=== PATIENT | male | born 1990 | race Caucasian/White ===

== ENCOUNTER 2020-07-18 17:27 | Inpatient (IN) | payer SELFPAY ==
[2020-07-18] VITALS (10 sets, daily range): BP systolic 97–136; BP diastolic 50–89; PULSE 81–100; RESP 14–20; TEMP 36.6; O2SAT 92–99
[2020-07-18] MEDS: LORazepam 2 mg/mL INJ 1 mL IM ×2 (17:27→21:00)
[2020-07-18] MEDS: haloperidol inj 5 mg/mL INJ 1 mL IM (17:27)
--- NOTE | 2020-07-18 18:00 | ED_ITS ---
HPI - Psych General: Chief Complaint: Psychiatric Symptoms Stated Complaint: AMS/PSYCH EVAL Time Seen by Provider: 07/18/20 17:30 Source: patient and police Mode of arrival: other (police) Limitations: physical limitation History of Present Illness: HPI Narrative: 29-year-old male that police were called to a park as he was unconscious at the park. When they arrived he was sleeping unconscious and he try to arouse him. Patient states he had taken Xanax and has been drinking heavily. Patient is obviously intoxicated at this time. Police said that he was quite combative on the way here. Patient was combative in the room as well and will not follow any commands. History is limited due to his intoxication. He has never said that he is suicidal or homicidal. Associated symptoms: Deny depression Review of Systems Const: Denies: fever(s), chills, body aches or change in appetite Eyes: Denies: blurry vision or eye discomfort ENMT: Denies: throat pain or dental pain Card: Denies: chest pain Resp: Denies: dyspnea GI: Denies: abdominal pain, nausea, vomiting or diarrhea : Denies: dysuria Musc: Denies: neck pain or back pain Skin/Breast: Denies: rash Neuro: Denies: headache(s) Psych: Denies: depression Harpreet/Lymph: Denies: easy bruising All/Imm: Denies: urticaria Physical Exam Const: COMMON NORMALS: patient oriented x3 GENERAL APPEARANCE: combative OTHER: intoxicated HENMT: COMMON NORMALS: normocephalic and atraumatic HEAD & SCALP: normocephalic and atraumatic Eye: COMMON NORMALS: Equal, round and reactive pupils present and EOMs intact bilaterally PUPIL: Yes Equal, round and reactive pupils present Neck/C-Spine: COMMON NORMALS: full ROM and supple Chest: COMMONS NORMALS: normal inspection of the chest and normal palpation of entire chest wall Resp: COMMON NORMALS: normal respiratory effort, No retractions, No use of accessory muscles and clear to auscultation bilaterally AUSCULTATION: clear to auscultation bilaterally Cardio: COMMON NORMALS: regular rate, regular rhythm and No murmurs present (Cardio) RATE: regular rate RHYTHM: regular rhythm GI: COMMON NORMALS: Normal to inspection, nondistended, normoactive bowel sounds present, Soft to palpation, non-tender and no masses PALPATION: Yes Soft to palpation Extremity: COMMON NORMALS: normal to inspection and full ROM Neuro: COMMON NORMALS: patient oriented x3, moves all extremities and no focal motor deficits Psych: ATTITUDE: Yes agitated ACTIVITY/MOTOR BEHAVIOR: Yes restless OTHER: intoxicated Skin: COMMON NORMALS: no rashes or lesions noted and no wounds GENERAL SKIN EXAM: no rashes or lesions noted MDM - Psych MDM Narrative: Medical decision making narrative: Presents here with acute alcohol intoxication along with psychosis. Patient here is been combative and I did have to sedate him originally. After patient woke he was combative again I was unable to get him to calm down or to follow any commands. Patient is domingo tated and is a harm to himself and others and I did have to sedate him again I spoke to Dr. Salinas and will admit to the psychiatric unit. Lab Data: Labs: Lab Results 07/18/20 07/18/20 07/18/20 Range/Units 18:34 18:34 Unknown WBC 11.1 H (4.0-10.0) 10^3/ uL RBC 5.04 (4.1-5.3) 10^6/u L Hgb 14.6 (11.7-16.6) g/dL Hct 45.0 (42.0-52.0) % MCV 89.3 (80-94) fL MCH 29.0 (28.0-34.0) pg MCHC 32.4 (30.0-36.0) g/dL RDW 14.4 (12.1-15.1) % Plt Count 240 (130-400) 10^3/c mm MPV 11.4 H (7.4-10.4) fL Neut % (Auto) 47.0 % Lymph % (Auto) 45.0 % Martin % (Auto) 6.4 % Eos % (Auto) 0.6 % Baso % (Auto) 0.5 % Neut # (Auto) 5.19 (1.8-7.7) 10^3/u L Lymph # (Auto) 5.0 H (0.8-4.8) 10^3/u L Martin # (Auto) 0.7 (0.2-0.9) 10^3/u L Eos # (Auto) 0.1 (0.0-0.8) 10^3/u L Baso # (Auto) 0.1 (0.0-0.1) 10^3/u L Nucleated RBC % (a uto) 0 % Nucleated RBCs # 0.0 /100WBC Sodium 141 (136-145) mmol/L Potassium 3.9 (3.5-5.1) mmol/L Chloride 107 (98-107) mmol/L Carbon Dioxide 24 (22-29) mmol/L Anion Gap 13.9 (5-19) BUN 9 (6-20) mg/dL Creatinine 0.6 L (0.7-1.2) mg/dL GFR Calculation 160.4 H (90-130) mL/min Glucose 95 (65-115) mg/dL Calculated Osmolal ity 288 (285-295) mOsm/k g Calcium 9.0 (8.5-10.5) mg/dL Total Bilirubin 0.4 (0.15-1.2) mg/dL AST 66 H (0-40) U/L ALT 60 H (0-41) U/L Alkaline Phosphata se 64 (40-130) IU/L Total Protein 7.0 (6.6-8.7) g/dL Albumin 4.0 (3.5-5.2) g/dL Globulin 3.0 (1.3-4.6) g/dL Salicylates < 0.3 L (3-10) mg/dL Urine Opiates Scre en Negative (Negative) ng/mL Acetaminophen < 5.0 L (10-30) ug/mL Ur Barbiturates Sc reen Negative (Negative) ng/mL Ur Phencyclidine S crn Negative (Negative) ng/mL Ur Amphetamines Sc reen Negative (Negative) ng/mL U Benzodiazepines Scrn Positive H (Negative) ng/mL Urine Cocaine Scre en Negative (Negative) ng/mL U Marijuana (THC) Screen Positive H (Negative) ng/mL Ethyl Alcohol 192 H (0-10) mg/dL Discharge Plan Discharge Patient Disposition: Admitted As Inpatient Clinical Impression: Acute psychosis, Alcohol intoxication Condition: Stable Coding Level of Care Code ED Web User Experience Strategist for Meche Fwd Exam Comprehensive
[2020-07-18 18:39] LABS: Amphetamines Screen Urine Negative (Negative); Barbiturates Screen Urine Negative (Negative); Benzodiazepines Screen Urine Positive (Negative); Cocaine Screen Urine Negative (Negative); Opiate Screen Urine Negative (Negative); PCP Screen Urine Negative (Negative); THC Screen Urine Positive (Negative)
[2020-07-18 18:41] LABS: Basophils # 0.1 10^3/uL (0.0-0.1); Basophils % 0.5 %; Eosinophils # 0.1 10^3/uL (0.0-0.8); Eosinophils % 0.6 %; Hemoglobin 14.6 g/dL (11.7-16.6); Mean Corpuscular HGB Conc 32.4 g/dL (30.0-36.0); Mean Corpuscular Volume 89.3 fL (80-94); Mean Platelet Volume 11.4 fL (7.4-10.4); Monocytes # 0.7 10^3/uL (0.2-0.9); Monocytes % 6.4 %; Neutrophils # 5.19 10^3/uL (1.8-7.7); Nucleated Red Blood Cells % 0 %; Platelet Count 240 10^3/cmm (130-400); Red Blood Count 5.04 10^6/uL (4.1-5.3); Red Cell Distribution Width 14.4 % (12.1-15.1); White Blood Count 11.1 10^3/uL (4.0-10.0)
[2020-07-18 19:18] LABS: Alanine Aminotransferase 60 U/L (0-41); Alcohol Level 192 mg/dL (0-10); Alkaline Phosphatase 64 IU/L (40-130); Anion Gap 13.9 (5-19); Aspartate Amino Transferase 66 U/L (0-40); Blood Urea Nitrogen 9 mg/dL (6-20); Carbon Dioxide 24 mmol/L (22-29); Chloride 107 mmol/L (98-107); Glomerular Filtration Rate 160.4 mL/min (90-130); Glucose 95 mg/dL (65-115); Osmolality Calculated 288 mOsm/kg (285-295); Potassium 3.9 mmol/L (3.5-5.1); Sodium 141 mmol/L (136-145); Total Bilirubin 0.4 mg/dL (0.15-1.2)
--- NOTE | 2020-07-18 19:32 | PC.NURSE ---
Patient appears to be sleeping peacefully. Respirations are even and unlabored. VSS. Patient is on continuous monitoring. 1:1 sitter remains in effect. RB
[2020-07-18 19:49] LABS: Acetaminophen < 5.0 ug/mL (10-30); Salicylate < 0.3 mg/dL (3-10)
[2020-07-18] MEDS: diphenhydrAMINE 50 mg/mL SDV 1mL IM (23:53)
[2020-07-19] VITALS (11 sets, daily range): BP systolic 103–121; BP diastolic 64–78; PULSE 78–112; RESP 16–19; TEMP 36.4–37.1; O2SAT 95–99
--- NOTE | 2020-07-19 00:19 | PC.NURSE ---
pt needing transport to NPU in restraint bed due to aggresive behavior and failure to cooperate with instructions. Pt transported with Security and ED staff
[2020-07-19] MEDS: haloperidol inj 5 mg/mL INJ 1 mL IM (00:24)
--- NOTE | 2020-07-19 00:46 | PC.NURSE ---
PT ARRIVED TO UNIT VIA RESTRAINT BED FROM ER WITH 3 STAFF AT SIDE. PT ASSISTED TO BED AND ASSISTED WITH CLOTHES CHANGE. PT CONTINUES TO BE AGITATED, AND COMBATIVE AT TIMES. DR KRISHNAMURTHY MADE AWARE OF PT'S BEHAVIOUR AND ORDERS RECEIVED AND NOTED.
[2020-07-19] MEDS: ziprasidone 20 mg/mL SDV IM (01:06)
[2020-07-19] MEDS: LORazepam 2 mg/mL INJ 1 mL IM (01:06)
[2020-07-19] MEDS: paliperidone ER 6 mg Tablet PO (12:42)
--- NOTE | 2020-07-19 13:46 | PM.NHP ---
Providers/Chief Complaint Admitting Physician: Billy Salinas MD Chief Complaint: AMS/PSYCH EVAL HPI NPU History of Present Illness HOA VALLEJO is a 29 year old male who presented to the emergency room fairly combative and speaking strangely, arguing about being in the hospital. He required multiple interventions before he ultimately was able to be safely transferred to the neuropsychiatric unit for definitive treatment of his issues. On the unit, he slowly acclimated to the individual, group, and milieu therapies provided, as he was fairly convinced that his being in the unit was a travesty of justice. He wanted it to be explained ad nauseam why he was on the unit. We went over his 96-hour hold affidavits, and he struggled to find the fairness in what seemed like a very clear cut circumstance. He said they have him here and there is really no reason for him to be here. After a fairly lengthy conversation just about whether or not he should be at the hospital, he switched gears very dramatically and said he would explain to me why he was in the hospital, and he began to speak about very psychotic beliefs; believing that he was the son God, he referred to himself as Jeramy at one point during the conversation, and referred to the Father above as his father. He reported that his chore in life was to save the human race, and that he was the only one standing between Kal and the destruction of earth as we know it. He talked about Leviathans, these creatures that he said originated in the [place], that took sex offenders, robber, and murderers and basically within forty seconds, which is a number he used multiple times, would have people reduced to dust or nothing, and that was the plan for all the murderers. He had a very elaborate story about how he has been with Kal for a lifetime preparing for this moment. He was unable to provide any real historical data, because he either was stuck in this mode of talking about himself as the Savior, and all these supernatural realities, or he was speaking about feeling like he was unfairly detained by the system. He denied psychiatric treatment. He reports that he had been essentially pushed away by his girlfriend/fianc?/baby mama, back in [place], and that is why he is here. He denied having any issues or any problems. He said he drank only to keep the voices away. He reported needing to go to work tomorrow and that being his only focus, and said we should give him his stuff and let him out. PSYCHIATRIC HISTORY: As above. No additional information provided and none in our system. SUBSTANCE ABUSE HISTORY: He endorses smoking cigarettes and drinking alcohol, and a distant history of drug use, but no clarity was given. FAMILY HISTORY: Unable to obtain. DEVELOPMENTAL HISTORY: Unable to obtain. PSYCHOSOCIAL HISTORY: He endorses that he lives with the grandmother of his best friend. He referred to having children but not with specificity. He endorsed having a relationship but did not really elaborate on how long ago that was. He acknowledged being in the but it was unclear how long he was in the [employer]. He clearly endorsed a restorationism belief system but it was fairly psychotic. LEGAL HISTORY: He [facility], seeming to suggest that he had been there before, but he did not elaborate. MEDICAL HISTORY: None reported. Meds NPU Home Medications Medication Instructions Recorded Confirmed Last Taken Type Unable to Assess 07/18/20 07/18/20 Unknown History Allergies Allergy/AdvReac Type Severity Reaction Status Date / Time No Known Allergies Allergy Verified 07/18/20 22:28 PFS NPU [facility]: Social History (Updated 07/19/20 @ 04:34 by Zeenat Monaco LPN) Smoking and tobacco status: current every day smoker cigarettes Quit status (tobacco): not considering quitting Second hand smoke exposure: Yes Smoking risk assessment/counseling performed?: Yes Alcohol intake: current Desire information about alcohol rehabilitation?: No Mental Status Exam MSE Comments: This is a short, well-nourished, well-developed, white male, with tattooing on his exposed skin, with limited dress and grooming, and adequate eye contact. No abnormal movements, except for mild psychomotor retardation, some slurring, and ataxia of gait. Cooperative with exam in no acute distress. Speech was with some slurring, and increased rate and volume at times, other times decreased rate and volume. Mood described as fine; affect irritable and angry. Thought process, linear. Thought content: patient denied any suicidal or homicidal ideation; there were no delusions reported, but clear paranoid, hyper-restorationism, persecutory delusions exist; he did not report current auditory or visual hallucination, but he did report speaking and seeing creatures in his daily existence. Attention and concentration were limited, and memory was unreliable, but none were formally tested. He is alert and oriented times person and place. Insight and judgment are impaired. Impulse control is impaired. Vitals/I&O/Wt Last Vital Signs Temp 98.7 F 07/19/20 21:01 Pulse 112 H 07/19/20 21:01 Resp 17 07/19/20 21:01 BP 112/78 07/19/20 21:01 Pulse Ox 96 07/19/20 21:01 Weight last 48 hrs Weight 68.039 kg Physical Exam Urinary Catheter Management^: Rocha: Cath Placed During This Visit: yes Reason for Continuing Indwelling Catheter: Other Urinary Catheter Date of Insertion: 07/18/20 Urinary Catheter Time of Insertion: 17:50 Data NPU : 07/18/20 18:34 07/18/20 18:34 A&P Assessment and plan (1) Acute psychosis: Status: Acute (2) Alcohol intoxication: Status: Acute (3) Alcohol withdrawal: Status: Acute (4) Benzodiazepine abuse: Status: Acute (5) Benzodiazepine withdrawal: Status: Acute (6) Cannabis abuse: Status: Acute Additional A&P Information This is a 29 year old, white male, with alcohol use disorder and psychosis, who presents on a 96-hour hold reporting that he has no need for services. Continue current medication, except: Start Invega 6 mg po q daily. Encourage individual, group, and milieu therapy. Continue q-15 minute checks for safety. Recommend sober living treatment at the highest level of care to which the patient is willing to commit. Involuntary Hold Information 96 Hour Hold: 96 Hour Involuntary Admission: Yes 96 Hour Hold Ending Date: 07/22/20 96 Hour Hold Ending Time: 21:00 Attestations NPU Medical Necessity Statement*: Inpatient hospitalization is medically necessary and the clinically appropriate intervention, at this time. We will monitor medications and make changes as indicated. Patient will be in the hospital for over two midnights. Likely length of stay is 3-5 days. Coding Level of Care Code Acute Charcoal Burner [employer] for Meche Vásquez Diagnoses Acute psychosis F23 Alcohol intoxication F10.929 Alcohol withdrawal F10.239 Benzodiazepine abuse F13.10 Benzodiazepine withdrawal F13.239 Cannabis abuse F12.10
[2020-07-20 06:00] VITALS: BP 101/67; PULSE 86; RESP 17; TEMP 36.4; O2SAT 96
[2020-07-20] MEDS: paliperidone ER 6 mg Tablet PO (07:56)
[2020-07-20 14:00] VITALS: BP 109/70; PULSE 109; RESP 18; TEMP 37.2; O2SAT 98
--- NOTE | 2020-07-20 14:04 | PC.RESP ---
Smoking Cessation information sent to patient.
--- NOTE | 2020-07-20 14:09 | P.PN_ITS ---
Subjective NPU Subjective: Interval history: Chuy presents today reporting that he is feeling a little better. He kind of got a kick in the gut because he has been asking about his phone and his wallet. We determined, at this point, that his wallet is with the police and the most likely reality is his phone is also, which raises all kinds of concerns for him. But the police said he would have to come get his wallet which worries him, and he is not sure where his phone is and he thinks they may have it. Additionally, he asked for his Xanax, and when we said that we did not have the bottle, and we identified that the police did, he was hoping to get that back shortly. When we explained to him that the bottle, according to them, had a different name on it so he would not be getting that bottle back, and they will probably want to talk to him about that situation, he said that he had put his pills in a different bottle. I think he is aware that he is in a problematic situation with the police. He continues to struggle with his supernatural conspiracy belief system delusion, that puts him in the center of the war of good against evil. He said he is tolerating the medication and tod ay, for the first time, he really did not get animated about discharge and was open about his struggles recently, and the fact that he had not seen his daughters or ?baby mama? in about three years. He reports he is eating okay and sleeping a little better. Mental Status Exam MSE Comments: This is a short, well-nourished, well-developed, white male, with tattooing on his exposed skin, with limited dress and grooming, and adequate eye contact. No abnormal movements, except for mild psychomotor retar dation, and less ataxia of gait. Cooperative with exam in no acute distress. Speech was with some slurring, and decreased rate and volume. Mood described as okay; affect less irritable/frustrated. Thought process, linear. Thought content: patient denied any suicidal or homicidal ideation; there were no delusions reported, but clear paranoid, hyper-taoist, persecutory delusions exist; he did not report current auditory or visual hallucination, but he did report speaking and seeing creatures in his daily existence. Attention and concentration were limited, and memory was unreliable, but none were formally tested. He is alert and oriented times person and place. Insight and judgment are impaired. Impulse control is impaired. Vitals/I&O/Wt Last Vital Signs Temp 97.5 F L 07/20/20 06:00 Pulse 86 07/20/20 06:00 Resp 17 07/20/20 06:00 BP 101/67 07/20/20 06:00 Pulse Ox 96 07/20/20 06:00 Physical Exam Urinary Catheter Management^: Rocha: Cath Placed During This Visit: yes Reason for Continuing Indwelling Catheter: Other Urinary Catheter Date of Insertion: 07/18/20 Urinary Catheter Time of Insertion: 17:50 Data NPU : 07/18/20 18:34 07/18/20 18:34 A&P Additional A&P Information (1) Acute psychosis: (2) Alcohol intoxication: (3) Alcohol withdrawal: (4) Benzodiazepine abuse: (5) Benzodiazepine withdrawal: (6) Cannabis abuse: This is a 29 year old, white male, with alcohol use disorder and psychosis, who presents on a 96-hour hold reporting that he has no need for services. Continue current medication. Encourage individual, group, and milieu therapy. Continue q-15 minute checks for safety. Recommend sober living treatment at the highest level of care to which the patient is willing to commit. Involuntary Hold Information 96 Hour Hold: 96 Hour Involuntary Admission: Yes 96 Hour Hold Ending Date: 07/22/20 96 Hour Hold Ending Time: 21:00 Attestations NPU Medical Necessity Statement*: Inpatient hospitalization is medically necessary and the clinically appropriate intervention, at this time. We will monitor medications and make changes as indicated. Likely length of stay is 3-5 days. Coding Level of Care Code Acute Assistant Boys Track Coach for Meche Vásquez
[2020-07-20] MEDS: trazodone 50 mg Tablet PO (21:29)
[2020-07-20] MEDS: hyDROXYzine 25 mg Capsule 50 MG PO (21:29)
[2020-07-20 21:45] VITALS: BP 106/72; PULSE 108; RESP 15; TEMP 36.9; O2SAT 97
[2020-07-21 06:00] VITALS: BP 107/67; PULSE 86; RESP 17; TEMP 36.7; O2SAT 96
[2020-07-21] MEDS: paliperidone ER 6 mg Tablet PO (08:33)
[2020-07-21 14:00] VITALS: BP 116/78; PULSE 114; RESP 18; TEMP 36.8; O2SAT 98
--- NOTE | 2020-07-21 21:23 | PM.NPN ---
Subjective NPU Subjective: Interval history: Chuy presented today reporting that he was feeling okay. He reported that he was able to speak with the police and they reported having home, his wallet and other items. He did not believe that he was in any particular trouble with them, and at least endorses a did not report any charges or concerns. He again requested to be discharged. We discussed that his 96-hour hold was up tomorrow and that this senior technical writer would like for him to stay for a little while longer but that I would not file a 21-day-old. In a positive sign he did not strongly back his delusional network, only saying that he did not want to talk about it and we again discussed the concept of psychosis and our belief that he was suffering from that. He reports he is eating and sleeping better. Mental Status Exam MSE Comments: This is a short, well-nourished, well-developed, white male, with tattooing on his exposed skin, with limited dress and grooming, and adequate eye contact. No abnormal movements, except for improving mild psychomotor retardation. Cooperative with exam in no acute distress. Speech slightly decreased rate and volume. Mood described as better; affect slightly subdued. Thought process, more organized. Thought content: patient denied any suicidal or homicidal ideation; there were no delusions reported, but clear paranoid, hyper-hindu, persecutory delusions exist but possibly less fixed; he did not report current auditory or visual hallucination, he did not speak of the creatures that he would see in here. Attention and concentration are improving, and memory was more reliable, but none were formally tested. He is alert and oriented times person and place. Insight and judgment are impaired but improving. Impulse control is impaired but improving. Vitals/I&O/Wt Last Vital Signs Temp 98.3 F 07/21/20 14:00 Pulse 114 H 07/21/20 14:00 Resp 18 07/21/20 14:00 BP 116/78 07/21/20 14:00 Pulse Ox 98 07/21/20 14:00 Physical Exam Urinary Catheter Management^: Rocha: Cath Placed During This Visit: yes Reason for Continuing Indwelling Catheter: Other Urinary Catheter Date of Insertion: 07/18/20 Urinary Catheter Time of Insertion: 17:50 Data NPU : 07/18/20 18:34 07/18/20 18:34 A&P Additional A&P Information (1) Acute psychosis: (2) Alcohol intoxication: (3) Alcohol withdrawal: (4) Benzodiazepine abuse: (5) Benzodiazepine withdrawal: (6) Cannabis abuse: This is a 29 year old, white male, with alcohol use disorder and psychosis, who presents on a 96-hour hold reporting that he has no need for services. Continue current medication. Encourage individual, group, and milieu therapy. Continue q-15 minute checks for safety. Recommend sober living treatment at the highest level of care to which the patient is willing to commit. Involuntary Hold Information 96 Hour Hold: 96 Hour Involuntary Admission: Yes 96 Hour Hold Ending Date: 07/22/20 96 Hour Hold Ending Time: 21:00 Attestations NPU Medical Necessity Statement*: Inpatient hospitalization is medically necessary and the clinically appropriate intervention, at this time. We will monitor medications and make changes as indicated. Likely length of stay is 2-4 days. Coding Level of Care Code Acute Classroom Teacher for Meche Vásquez
[2020-07-21] MEDS: trazodone 50 mg Tablet PO (21:29)
[2020-07-21] MEDS: hyDROXYzine 25 mg Capsule 50 MG PO (21:29)
[2020-07-21] MEDS: nicotine 2 mg Gum BUCCAL (21:37)
[2020-07-21 22:00] VITALS: BP 113/74; PULSE 99; RESP 20; TEMP 36.8; O2SAT 97
--- NOTE | 2020-07-22 05:18 | PC.NURSE ---
PRNS GIVEN VISTERIL 50MG PO FOR ANXIETY. RESULT IS A PATIENT WHO IS NO LONGER ANXIOUS TRAZODONE 50MG PO FOR SLEEP. RESULT IS A PATIENT THAT IS SLEEPING SOUNDLY NICOTINE GUM GIVEN FOR CRAVING.
[2020-07-22 06:00] VITALS: BP 113/73; PULSE 76; RESP 18; TEMP 37.1; O2SAT 96
[2020-07-22] MEDS: paliperidone ER 6 mg Tablet PO (09:05)
--- NOTE | 2020-07-22 10:07 | PM.NDC ---
Diagnoses at Discharge Discharge Diagnosis (1) Acute psychosis: Status: Acute (2) Alcohol intoxication: Status: Resolved (3) Alcohol withdrawal: Status: Resolved (4) Benzodiazepine abuse: Status: Acute (5) Benzodiazepine withdrawal: Status: Resolved (6) Cannabis abuse: Status: Acute Reason for Visit Reason for Visit: AMS/PSYCH EVAL Brief History: History of Present Illness HOA VALLEJO is a 29 year old male who presented to the emergency room fairly combative and speaking strangely, arguing about being in the hospital. He required multiple interventions before he ultimately was able to be safely transferred to the neuropsychiatric unit for definitive treatment of his issues. On the unit, he slowly acclimated to the individual, group, and milieu therapies provided, as he was fairly convinced that his being in the unit was a travesty of justice. He wanted it to be explained ad nauseam why he was on the unit. We went over his 96-hour hold affidavits, and he struggled to find the fairness in what seemed like a very clear cut circumstance. He said they have him here and there is really no reason for him to be here. After a fairly lengthy conversation just about whether or not he should be at the hospital, he switched gears very dramatically and said he would explain to me why he was in the hospital, and he began to speak about very psychotic beliefs; believing that he was the son God, he referred to himself as Jeramy at one point during the conversation, and referred to the Father above as his father. He reported that his chore in life was to save the human race, and that he was the only one standing between Kal and the destruction of earth as we know it. He talked about Leviathans, these creatures that he said originated in the [place], that took sex offenders, robber, and murderers and basically within forty seconds, which is a number he used multiple times, would have people reduced to dust or nothing, and that was the plan for all the murderers. He had a very elaborate story about how he has been with Kal for a lifetime preparing for this moment. He was unable to provide any real historical data, because he either was stuck in this mode of talking about himself as the Savior, and all these supernatural realities, or he was speaking about feeling like he was unfairly detained by the system. He denied psychiatric treatment. He reports that he had been essentially pushed away by his girlfriend/fianc?/baby alyson, back in [place], and that is why he is here. He denied having any issues or any problems. He said he drank only to keep the voices away. He reported needing to go to work tomorrow and that being his only focus, and said we should give him his stuff and let him out. PSYCHIATRIC HISTORY: As above. No additional information provided and none in our system. SUBSTANCE ABUSE HISTORY: He endorses smoking cigarettes and drinking alcohol, and a distant history of drug use, but no clarity was given. FAMILY HISTORY: Unable to obtain. DEVELOPMENTAL HISTORY: Unable to obtain. PSYCHOSOCIAL HISTORY: He endorses that he lives with the grandmother of his best friend. He referred to having children but not with specificity. He endorsed having a relationship but did not really elaborate on how long ago that was. He acknowledged being in the but it was unclear how long he was in the [employer]. He clearly endorsed a jainism belief system but it was fairly psychotic. LEGAL HISTORY: He referred to shelter on multiple occasions, seeming to suggest that he had been there before, but he did not elaborate. MEDICAL HISTORY: None reported. Hospital Course Hospital Course The patient presented to the emergency room endorsing suicidal ideation with acute psychosis brought in by the police on a 96-hour hold. He was admitted to the neuropsychiatric unit for definitive treatment of these issues. On the unit he became clear that he was floridly psychotic. He very slowly acclimated to the individual, group and milieu therapies provided. He was started on Invega 6 mg p.o. every morning and he tolerated the medication well and showed moderate improvement. The psychosis was resolving and we would have like for him to stay longer but lacked criteria to extend his 96-hour hold. During the hospitalization, the patient had routine laboratory studies which were within normal limits, except for a few outliers. Additionally, the patient had a general medical evaluation which was within normal limits and revealed no new acute processes. Discharge Summary At the time of discharge the patient denied all lethality, was absent psychosis, and mood and anxiety were well managed. The patient endorsed a plan to avoid all drugs of abuse and to follow-up with outpatient services, as recommended. The patient was evaluated and deemed to be absent credible lethality, and had achieved the maximum benefit from an inpatient hospitalization, and so he was discharged. Involuntary Hold Information 96 Hour Hold: 96 Hour Involuntary Admission: Yes 96 Hour Hold Ending Date: 07/22/20 96 Hour Hold Ending Time: 21:00 Mental Status Exam MSE Comments: This is a short, well-nourished, well-developed, white male, with tattooing on his exposed skin, with adequate dress and grooming, and adequate eye contact. No abnormal movements, except for improving mild psychomotor retardation. Cooperative with exam in no acute distress. Speech slightly decreased rate and volume. Mood described as pretty good; affect less odd. Thought process, more organized. Thought content: patient denied any suicidal or homicidal ideation; there were no delusions reported, but clear paranoid, hyper-jainism, persecutory delusions exist but less fixed; he did not report current auditory or visual hallucination, he did not speak of the creatures that he would see in here. Attention and concentration are improving, and memory was more reliable, but none were formally tested. He is alert and oriented times person and place. Insight and judgment are improving. Impulse control is impaired but improving. Physical Exam Urinary Catheter Management^: Rocha: Cath Placed During This Visit: yes Reason for Continuing Indwelling Catheter: Other Urinary Catheter Date of Insertion: 07/18/20 Urinary Catheter Time of Insertion: 17:50 Discharge Data Vitals: Last Vital Signs Temp 98.8 F 07/22/20 06:00 Pulse 76 07/22/20 06:00 Resp 18 07/22/20 06:00 BP 113/73 07/22/20 06:00 Pulse Ox 96 07/22/20 06:00 Discharge Plan Discharge Patient Disposition: Home Condition: Stable Prescriptions: New hydroxyzine pamoate 25 mg Capsule 50 mg PO Q6H PRN (Reason: Anxiety) 30 Days Qty: 120 RF: 1 paliperidone 6 mg Tablet Extended Release 24hr 6 mg PO DAILY 30 Days Qty: 30 RF: 1 Discharge Orders: Discharge Order (Routine); Ordered 07/22/20 Ordered By: Billy Salinas Referrals: [facility] [Outside] - 1-3 days (call to set up an initial intake to start outpatient mental health services. financial assistance available!) [facility] [Outside] - 1-3 days (If interested and it is needed, do call [facility]. They provide treatment for substance abuse issues. They do offer treatment for those who have no insurance. ) Discharge Diet: Regular Discharge Activity: Resume usual activity Patient Instructions: Anxiety (DC) Discharge Date/Time: 07/22/20 12:28 Discharge Attestations NPU Time Spent in Discharge Care*: less than 30 min Specific Discharge Activities: Specific discharge activities: educating patient, discussing with case making machine operator/social workers/dc planners, documenting/other paperwork and evaluating patient/reviewing data Coding Level of Care Code Acute Geological Sample Tester for [facility] Fwd Diagnoses Acute psychosis F23 Alcohol intoxication F10.929 Alcohol withdrawal F10.239 Benzodiazepine abuse F13.10 Benzodiazepine withdrawal F13.239 Cannabis abuse F12.10
[2020-07-22 10:17] VITALS: BP 113/73; PULSE 76; RESP 18; TEMP 37.1; O2SAT 96
== END 2020-07-22 12:28 | disposition home or self-care (01) | DRG 885 ==
LOC: ER 20:43 → NP 21:11
PROVIDERS: Emergency Medicine; Admitting Provider Psychiatry & Neurology Psychiatry; Visit Provider Psychiatry & Neurology Psychiatry
DX: F23 Brief psychotic disorder (principal); F10.239 Alcohol dependence with withdrawal, unspecified; F13.239 Sedative, hypnotic or anxiolytic dependence with withdrawal, unspecified; F10.229 Alcohol dependence with intoxication, unspecified; F12.10 Cannabis abuse, uncomplicated
CPT/HCPCS: 12345; 36415; 51702; 80053; 80306; 80307; 85025; 96372; 99285; J1200; J1630; J2060; J3486; J3490

== ENCOUNTER 2020-08-27 23:30 | Inpatient (IN) | payer SELFPAY ==
[2020-08-27 23:43] VITALS: BP 123/76; RESP 18; O2SAT 93; BMI 26.3
[2020-08-28] VITALS (7 sets, daily range): BP systolic 101–143; BP diastolic 65–98; PULSE 60–116; RESP 17–18; TEMP 36.6–36.8; O2SAT 94–99
[2020-08-28 01:21] LABS: Basophils # 0.1 10^3/uL (0.0-0.1); Basophils % 0.5 %; Eosinophils # 0.1 10^3/uL (0.0-0.8); Eosinophils % 0.4 %; Hematocrit 43.6 % (42.0-52.0); Hemoglobin 14.5 g/dL (11.7-16.6); Lymphocytes # 5.6 10^3/uL (0.8-4.8); Lymphocytes % 38.2 %; Mean Corpuscular HGB Conc 33.3 g/dL (30.0-36.0); Mean Corpuscular Hemoglobin 29.4 pg (28.0-34.0); Mean Corpuscular Volume 88.4 fL (80-94); Mean Platelet Volume 11.6 fL (7.4-10.4); Monocytes # 1.3 10^3/uL (0.2-0.9); Monocytes % 8.7 %; Neutrophils # 7.58 10^3/uL (1.8-7.7); Neutrophils % 51.8 %; Nucleated Red Blood Cells % 0 %; Platelet Count 288 10^3/cmm (130-400); Red Blood Count 4.93 10^6/uL (4.1-5.3); Red Cell Distribution Width 14.4 % (12.1-15.1); White Blood Count 14.6 10^3/uL (4.0-10.0)
[2020-08-28] MEDS: LORazepam 2 mg Tablet PO (01:45)
[2020-08-28 01:49] LABS: Alanine Aminotransferase 126 U/L (0-41); Albumin Level 4.4 g/dL (3.5-5.2); Alkaline Phosphatase 70 IU/L (40-130); Anion Gap 13.2 (5-19); Aspartate Amino Transferase 65 U/L (0-40); Blood Urea Nitrogen 19 mg/dL (6-20); Calcium 8.9 mg/dL (8.5-10.5); Carbon Dioxide 23 mmol/L (22-29); Chloride 103 mmol/L (98-107); Globulin 2.8 g/dL (1.3-4.6); Glomerular Filtration Rate 114.3 mL/min (90-130); Glucose 105 mg/dL (65-115); Osmolality Calculated 283 mOsm/kg (285-295); Potassium 4.2 mmol/L (3.5-5.1); Sodium 135 mmol/L (136-145); Total Bilirubin 0.3 mg/dL (0.15-1.2); Total Protein 7.2 g/dL (6.6-8.7)
[2020-08-28 01:50] LABS: Acetaminophen < 5.0 ug/mL (10-30); Alcohol Level < 10 mg/dL (0-10); Salicylate < 0.3 mg/dL (3-10)
[2020-08-28 02:01] LABS: Add Urine Microscopic? NO
[2020-08-28 02:03] LABS: Bilirubin Urine Neg (Negative); Blood Urine Neg (Negative); Glucose Urine UA Norm (Normal); Ketones Urine Negative (Negative); Leukocyte Esterase Urine Negative (Negative); Nitrate Urine Negative (Negative); Protein Urine Neg (Negative); Urine Appearance Clear (CLEAR); Urine Color Yellow (Yellow); Urobilinogen Urine Norm (Negative); pH Urine 5 (5-7)
[2020-08-28 02:12] LABS: Slide Review Slide Review Perform
[2020-08-28 02:12] LABS: Amphetamines Screen Urine Negative (Negative); Barbiturates Screen Urine Negative (Negative); Benzodiazepines Screen Urine Negative (Negative); Cocaine Screen Urine Negative (Negative); Opiate Screen Urine Negative (Negative); PCP Screen Urine Negative (Negative); THC Screen Urine Positive (Negative)
--- NOTE | 2020-08-28 02:33 | W.ED.PSYCH ---
HPI - Psych General: Chief Complaint: Psychiatric Symptoms Stated Complaint: mhe Time Seen by Provider: 08/28/20 00:11 History of Present Illness: HPI Narrative: 30-year-old male presents for mental health evaluation. He states that he has not done well since he left the stress unit a couple of weeks ago. He continues to hear voices. He states that the medication is not helping and that medicine does not make the devil stop . He admits to feeling down and depressed, and wanting to end his life. He has a history of this. MD complaint: suicidal ideation Onset (ago): day(s) Duration: constant History of same: Yes Relieving factors: none Exacerbating factors: none Associated psychiatric symptoms: depression, suicidal ideation and auditory hallucinations Associated symptoms: Reports auditory hallucinations and depression Review of Systems Const: Denies: fever(s) or chills Eyes: Denies: change in vision or blurry vision ENMT: Denies: odynophagia or post nasal drip Card: Denies: chest pain, palpitations or irregular heart rhythm Resp: Denies: dyspnea, productive cough, non-productive cough or wheezing GI: Denies: abdominal pain, nausea or vomiting : Denies: difficulty urinating or hematuria Musc: Denies: joint warmth Skin/Breast: Denies: rash or erythema Neuro: Denies: headache(s), dizziness or vertigo Psych: Reports: depression and auditory hallucinations PFS ED PFSH: Social History (Updated 07/19/20 @ 04:34 by Zeenat Monaco LPN) Smoking and tobacco status: current every day smoker cigarettes Quit status (tobacco): not considering quitting Second hand smoke exposure: Yes Smoking risk assessment/counseling performed?: Yes Alcohol intake: current Desire information about alcohol rehabilitation?: No Physical Exam Const: GENERAL APPEARANCE: well developed ORIENTATION/CONSCIOUSNESS: Yes oriented to person, Yes oriented to place and Yes oriented to time HENMT: COMMON NORMALS: normocephalic, external ears normal and Normal external nose present HEAD & SCALP: normocephalic FACE & SINUS: normal facial exam NOSE: Normal external nose present and No nasal discharge present EXTERNAL EAR: Yes external ears normal Eye: COMMON NORMALS: Equal, round and reactive pupils present, EOMs intact bilaterally and conjunctivae normal EYELID: eyelids normal CONJUNCTIVA: Yes conjunctivae normal PUPIL: Yes Equal, round and reactive pupils present Neck/C-Spine: GENERAL: No tracheal deviation Chest: COMMONS NORMALS: normal inspection of the chest CHEST: No tenderness Resp: COMMON NORMALS: clear to auscultation bilaterally EFFORT & INSPECTION: No tachypneic, No respiratory distress, No retractions, No uses accessory muscles and No tracheal deviation AUSCULTATION: clear to auscultation bilaterally, no rhonchi, no wheezes and lung sounds not diminished Cardio: COMMON NORMALS: regular rate and regular rhythm RATE: regular rate RHYTHM: regular rhythm HEART SOUNDS: no murmurs PERIPHERAL PULSES: radial pulses present GI: INSPECTION: No abdominal distension AUSCULTATION: No Hyperactive bowel sounds present and No Hypoactive bowel sounds present PALPATION: No Guarding due to palpation present (GI) and No Rigid due to palpation PERCUSSION: no dullness to percussion and no tympanic to percussion Neuro: SENSORIUM/ORIENTATION: Yes oriented to person, Yes oriented to place and Yes oriented to time Psych: COMMON NORMALS: speech normal APPEARANCE: Yes grossly normal ATTITUDE: Yes calm ACTIVITY/MOTOR BEHAVIOR: Yes appropriate eye contact SPEECH: Yes normal speech MOOD & AFFECT: Yes depressed mood THOUGHT PROCESS: disorganized THOUGHT CONTENT: Yes Suicidality present and Yes Hallucination(s) present ATTENTION/CONCENTRATION: Yes attention grossly intact and Yes concentration grossly intact MEMORY/COGNITION: Yes memory grossly intact and Yes cognition grossly intact INSIGHT: Fair insight present (Psych) JUDGEMENT: Fair judgement present (Psych) Skin: COMMON NORMALS: no rashes or lesions noted GENERAL SKIN EXAM: no rashes or lesions noted MDM - Psych MDM Narrative: Medical decision making narrative: This patient is floridly psychotic. He tells my nursing staff that he was possessed by the devil several years ago. He makes statements that God is the devil . He talks about demons. He has had some passing thoughts of suicide as well, and is having constant auditory hallucinations. To be admitted to neuropsychiatry. He is willing to come in. Lab Data: Labs: Lab Results 08/28/20 08/28/20 08/28/20 Range/Units 01:13 01:13 01:28 WBC 14.6 H (4.0-10.0) 10^3/ uL RBC 4.93 (4.1-5.3) 10^6/u L Hgb 14.5 (11.7-16.6) g/dL Hct 43.6 (42.0-52.0) % MCV 88.4 (80-94) fL MCH 29.4 (28.0-34.0) pg MCHC 33.3 (30.0-36.0) g/dL RDW 14.4 (12.1-15.1) % Plt Count 288 (130-400) 10^3/c mm MPV 11.6 H (7.4-10.4) fL Neut % (Auto) 51.8 % Lymph % (Auto) 38.2 % [place] % (Auto) 8.7 % Eos % (Auto) 0.4 % Baso % (Auto) 0.5 % Neut # (Auto) 7.58 (1.8-7.7) 10^3/u L Lymph # (Auto) 5.6 H (0.8-4.8) 10^3/u L [place] # (Auto) 1.3 H (0.2-0.9) 10^3/u L Eos # (Auto) 0.1 (0.0-0.8) 10^3/u L Baso # (Auto) 0.1 (0.0-0.1) 10^3/u L Nucleated RBC % (a uto) 0 % Nucleated RBCs # 0.0 /100WBC Sodium 135 L (136-145) mmol/L Potassium 4.2 (3.5-5.1) mmol/L Chloride 103 (98-107) mmol/L Carbon Dioxide 23 (22-29) mmol/L Anion Gap 13.2 (5-19) BUN 19 (6-20) mg/dL Creatinine 0.8 (0.7-1.2) mg/dL GFR Calculation 114.3 (90-130) mL/min Glucose 105 (65-115) mg/dL Calculated Osmolal ity 283 L (285-295) mOsm/k g Calcium 8.9 (8.5-10.5) mg/dL Total Bilirubin 0.3 (0.15-1.2) mg/dL AST 65 H (0-40) U/L ALT 126 H (0-41) U/L Alkaline Phosphata se 70 (40-130) IU/L Total Protein 7.2 (6.6-8.7) g/dL Albumin 4.4 (3.5-5.2) g/dL Globulin 2.8 (1.3-4.6) g/dL Urine Color Yellow (Yellow) Urine Appearance Clear (CLEAR) Urine pH 5 (5-7) Ur Specific Gravit y 1.020 (1.005-1.030) Urine Protein Neg (Negative) Urine Glucose (UA) Norm (Normal) Urine Ketones Negative (Negative) Urine Blood Neg (Negative) Urine Nitrate Negative (Negative) Urine Bilirubin Neg (Negative) Urine Urobilinogen Norm (Negative) mg/dL Ur Leukocyte Alexa ase Negative (Negative) Salicylates < 0.3 L (3-10) mg/dL Urine Opiates Scre en (Negative) ng/mL Acetaminophen < 5.0 L (10-30) ug/mL Ur Barbiturates Sc reen (Negative) ng/mL Ur Phencyclidine S crn (Negative) ng/mL Ur Amphetamines Sc reen (Negative) ng/mL U Benzodiazepines Scrn (Negative) ng/mL Urine Cocaine Scre en (Negative) ng/mL U Marijuana (THC) Screen (Negative) ng/mL Ethyl Alcohol < 10 (0-10) mg/dL 08/28/20 Range/Units 01:28 WBC (4.0-10.0) 10^3/ uL RBC (4.1-5.3) 10^6/u L Hgb (11.7-16.6) g/dL Hct (42.0-52.0) % MCV (80-94) fL MCH (28.0-34.0) pg MCHC (30.0-36.0) g/dL RDW (12.1-15.1) % Plt Count (130-400) 10^3/c mm MPV (7.4-10.4) fL Neut % (Auto) % Lymph % (Auto) % [place] % (Auto) % Eos % (Auto) % Baso % (Auto) % Neut # (Auto) (1.8-7.7) 10^3/u L Lymph # (Auto) (0.8-4.8) 10^3/u L [place] # (Auto) (0.2-0.9) 10^3/u L Eos # (Auto) (0.0-0.8) 10^3/u L Baso # (Auto) (0.0-0.1) 10^3/u L Nucleated RBC % (a uto) % Nucleated RBCs # /100WBC Sodium (136-145) mmol/L Potassium (3.5-5.1) mmol/L Chloride (98-107) mmol/L Carbon Dioxide (22-29) mmol/L Anion Gap (5-19) BUN (6-20) mg/dL Creatinine (0.7-1.2) mg/dL GFR Calculation (90-130) mL/min Glucose (65-115) mg/dL Calculated Osmolal ity (285-295) mOsm/k g Calcium (8.5-10.5) mg/dL Total Bilirubin (0.15-1.2) mg/dL AST (0-40) U/L ALT (0-41) U/L Alkaline Phosphata se (40-130) IU/L Total Protein (6.6-8.7) g/dL Albumin (3.5-5.2) g/dL Globulin (1.3-4.6) g/dL Urine Color (Yellow) Urine Appearance (CLEAR) Urine pH (5-7) Ur Specific Gravit y (1.005-1.030) Urine Protein (Negative) Urine Glucose (UA) (Normal) Urine Ketones (Negative) Urine Blood (Negative) Urine Nitrate (Negative) Urine Bilirubin (Negative) Urine Urobilinogen (Negative) mg/dL Ur Leukocyte Alexa ase (Negative) Salicylates (3-10) mg/dL Urine Opiates Scre en Negative (Negative) ng/mL Acetaminophen (10-30) ug/mL Ur Barbiturates Sc reen Negative (Negative) ng/mL Ur Phencyclidine S crn Negative (Negative) ng/mL Ur Amphetamines Sc reen Negative (Negative) ng/mL U Benzodiazepines Scrn Negative (Negative) ng/mL Urine Cocaine Scre en Negative (Negative) ng/mL U Marijuana (THC) Screen Positive H (Negative) ng/mL Ethyl Alcohol (0-10) mg/dL Discharge Plan Discharge Patient Disposition: Admitted As Inpatient Admit Provider: Billy Salinas Clinical Impression: Acute psychosis Condition: Stable Coding Level of Care Code ED Structural Steel Worker Helper for Chg Fwd Exam Comprehensive
[2020-08-28] MEDS: ziprasidone 20 mg/mL SDV IM (03:24)
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
[2020-08-28] MEDS: hyDROXYzine 25 mg Capsule 50 MG PO (17:17)
--- NOTE | 2020-08-28 17:18 | PC.NURSE ---
PRN Vistaril/Anxiety Patient reports increased anxiety. PRN Vistaril 50mg PO given at this time. Will monitor effectiveness of this medication.
[2020-08-28] MEDS: trazodone 50 mg Tablet PO (20:50)
[2020-08-29] MEDS: ziprasidone hcl 20 mg Capsule 40 MG PO (05:44)
[2020-08-29 06:00] VITALS: BP 97/62; PULSE 57; RESP 17; TEMP 36.8; O2SAT 99
[2020-08-29 13:32] VITALS: BP 110/72; PULSE 61; RESP 18; TEMP 36.6; O2SAT 98
--- NOTE | 2020-08-29 16:10 | P.PN_ITS ---
Subjective NPU Subjective: Interval history: You know how does feel like Jeramy. Spend all your time of the devil. Patient states that he has been plagued by the day of the devil all of his life. He specifically denied having the diagnosis of schizophrenia. He denied the presence of auditory and visual hallucinations. However he feels that the devil is controlling his life and sending him messages as to what to do next. However he is very vague about how those messages are received. He is insistent that he is emotionally tortured. He says the only thing that counteracts the devil are benzos. He also complained that the Geodon that we are giving him by mouth did not have the same dramatic effect that it had when he was given it by injection in the emergency room and he said he would like to have it in injection form instead. Mental Status Exam MSE Comments: Mental Status Exam: The patient is an alert interpersonally engaged male appearing approximately his stated age. His hygiene is excellent. He provides no eye contact throughout the discourse of his explanation of events . His reliability as an informant is questionable. When detailing his life story, there is a great deal of entanglement with overlapping events and times. He claims to have only been in [place] until he was age 6. It was a horrible experience. And yet he has [place] tattooed in a large letters along the volar surface of his right arm. At no time did he mention living in [place] and yet his traffic and for contractions of July of this year this to his home as being [facility]. It should also be noted that 2 days prior to his first admission here on 07/19/2020, he was arrested for driving without a license and driving on the wrong side of the road. There are no nm dical records or no record of his presence in the [place] public record prior to that date. Appearance: no gross neurological deficits., gait is unremarkable; AIMS=0 Speech: Speech is of normal rate and rhythm and easily understood. Thought processes: Thought processes are abstract though if frequently idiosyncratic regarding his satanic delusions.. Judgment is adequate for safety. Associations: intact Psychotic processes: There is no indication of guarding or paranoia. There is no attention to the internal stimuli. Auditory and visual hallucinations are denied. He reports a delusional system regarding his controlled by Kal. However it is not a well-formed delusion in that he has not yet explained how Kal actually controls him without the use of hallucinations or first rank sy mptoms. Judgment: Insight is good. Problem solving skills are adequate for safety. Orientation: The patient is oriented to person, place time and situation. Memory: no deficits noted in immediate, intermediate, or remote spheres. Attention: The patient is alert and interpersonally engaged. Language: Verbalizations are coherent. Fund of knowledge: Fund of knowledge is adequate. Affect/Mood: Affect is consistent with a depressed mood. pt denies suicidal ideation Affective range is appropriate. Psychosis: perception unimpaired except for his stated satanic delusional system; reality testing intact. Cognition: Patient Appearance: Appropriate Level of Consciousness: Awake, Alert and Follows Commands Patient Cognition Impaired: No Ability to Follow Directions: Fair Patient Orientation (long list): Person, Place, Time, Name, Age, Birthday, Day of Month, Day of Week, Month, Time of Day and Year Comprehension Ability: Moderate Impairment Hallucination Type: Auditory and Visual Delusion Description: Church Thought Process: Appropriate Affect: Affect Description: Appropriate and Calm Behavior: Patient Behavior: Appropriate and Cooperative Speech Pattern: Appropriate and Clear Vitals/I&O/Wt Last Vital Signs Temp 97.8 F 08/29/20 13:32 Pulse 61 08/29/20 13:32 Resp 18 08/29/20 13:32 BP 110/72 08/29/20 13:32 Pulse Ox 98 08/29/20 13:32 Weight last 48 hrs Weight 71.668 kg Weight 73.936 kg Data NPU : 08/28/20 01:13 08/28/20 01:13 A&P Assessment and plan (1) Cannabis abuse: Status: Chronic (2) Benzodiazepine abuse: Status: Chronic (3) Acute psychosis: Status: Suspected (4) Malingering: Status: Acute Additional A&P Information This is a 30-year-old white male who presents with active addiction and latesha psychosis with very fixed concepts who endorses an openness to a trial of G eodon. Hospital day #3: He provides no eye contact throughout the discourse of his explanation of e vents. His reliability as an informant is questionable. When detailing his life story, there is a great deal of entanglement with overlapping events and times. He claims to have only been in [place] until he was age 6. It was a horrible experience. And yet he has [place] tattooed in a large letters along the volar surface of his right arm. At no time did he mention living in [place] and yet his traffic and for contractions of July of this year this to his home as being [facility]. It should also be noted that 2 days prior to his first admission here on 07/19/2020, he was arrested for driving without a license and driving on the wrong side of the road. There are no medical records or no record of his presence in the [place] public record prior to that date. It is entirely likely that he may be malingering with the primary gain of accessing detention by this homeless man. He is clearly attempting to support his benzodiazepine use claiming that it is the only thing that can hold Satan at bay. 1. Continue current medication. Except: We will increase to Geodon 60 mg p.o. twice daily under the likelihood that the assessment of his malingering may be an error and his report that it does provide benefit even though he cannot say what that benefit is.. We will not start Xanax at this time. We will provide Ativan 2 mg at bedtime to assist sleep only while he is in the hospital. He will not be discharged on this medication. 2. Continue every 15 minute checks for safety. 3. Encourage individual, group and milieu therapy. 4. Encourage sober living treatment at the highest level of care to which he is willing to commit. Involuntary Hold Information 96 Hour Hold: 96 Hour Involuntary Admission: No 96 Hour Hold Ending Date: 07/22/20 96 Hour Hold Ending Time: 21:00 Attestations NPU Medical Necessity Statement*: Patient will remain in the hospital another 2-4 nights for assessment of medication efficacy and tolerability. Coding Level of Care Code Acute Licensing And Registration Director for Meche Fwjanell Diagnoses Cannabis abuse F12.10 Benzodiazepine abuse F13.10 Acute psychosis F23 Malingering Z76.5
[2020-08-29] MEDS: nicotine 2 mg Gum BUCCAL (16:18)
[2020-08-29] MEDS: ziprasidone hcl 60 mg Capsule PO (16:18)
[2020-08-29] MEDS: LORazepam 2 mg Tablet PO (20:56)
[2020-08-29 21:38] VITALS: BP 104/63; PULSE 96; RESP 17; TEMP 36.6; O2SAT 97
[2020-08-30 06:00] VITALS: BP 108/69; PULSE 53; RESP 16; TEMP 36.5; O2SAT 97
[2020-08-30] MEDS: ziprasidone hcl 60 mg Capsule PO ×2 (06:41→07:54)
[2020-08-30 09:53] VITALS: BP 108/69; PULSE 53; RESP 16; TEMP 36.5; O2SAT 97
--- NOTE | 2020-08-30 12:58 | PM.NDC ---
Diagnoses at Discharge Discharge Diagnosis (1) Cannabis abuse: Status: Chronic (2) Benzodiazepine abuse: Status: Chronic (3) Acute psychosis: Status: Suspected (4) Malingering: Status: Acute Reason for Visit Reason for Visit: mhe Brief History: History of Present Illness Chuy Valenzuela is a 30 year old male presented to the emergency department with the following report: Chief Complaint: Psychiatric Symptoms Stated Complaint: mhe Time Seen by Provider: 08/28/20 00:11 History of Present Illness: HPI Narrative: 30-year-old male presents for mental health evaluation. He states that he has not done well since he left the stress unit a couple of weeks ago. He continues to hear voices. He states that the medication is not helping and that medicine does not make the devil stop . He admits to feeling down and depressed, and wanting to end his life. He has a history of this. MD complaint: suicidal ideation Onset (ago): day(s) Duration: constant History of same: Yes Relieving factors: none Exacerbating factors: none Associated psychiatric symptoms: depression, suicidal ideation and auditory hallucinations Associated symptoms: Reports auditory hallucinations and depression. He was admitted to the neuropsychiatric unit for definitive treatment of these issues. He presents this morning He did the last hospitalization where he was seen by this proposal manager writer reporting that he is in the middle of a murrell that is literally between good and evil. However his thinking is quite elaborate and distorted. He endorses a history of fighting the devil. He endorses leviathans are intimately involved in these battles. He endorses that Paramjit created God and that humans live like Paramjit because they are like God's. He is clear that he has been on psychiatric medications in the past reportedly including Abilify and Invega but is unclear if that is true, however he did receive did on at one point when he was quite anxious and reported that it was effective for him. He agreed to initiation of Geodon after discussion of the risks, benefits and alternatives. He was very tearful as he described some things that the devil has forced him to do. He described very elaborate challenges. Although he agreed to the Geodon he was very clear that the single most effective medication for him is Xanax. He endorses not being prescribed Xanax but getting it nonetheless. He reports he was on it for long period of time stopped prescribing it. Hospital Course Discharge Summary Assessment and plan (1) Cannabis abuse: Status: Acute (2) Benzodiazepine abuse: Status: Acute (3) Acute psychosis: Status: Acute Additional A&P Information This is a 30-year-old white male who presents with active addiction and latesha psychosis with very fixed concepts who endorses an openness to a trial of Geodon. 1. Continue current medication. Except: We will start Geodon 40 mg p.o. twice daily. We will not start Xanax at this time. 2. Continue every 15 minute checks for safety. 3. Encourage individual, group and milieu therapy. 4. Encourage sober living treatment at the highest level of care to which he is willing to commit. Hospital Day #2: Interval history: You know how does feel like Jeramy. Spend all your time of the devil. Patient states that he has been plagued by the day of the devil all of his life. He specifically denied having the diagnosis of schizophrenia. He denied the presence of auditory and visual hallucinations. However he feels that the devil is controlling his life and sending him messages as to what to do next. However he is very vague about how those messages are received. He is insistent that he is emotionally tortured. He says the only thing that counteracts the devil are benzos. He also complained that the Geodon that we are giving him by mouth did not have the same dramatic effect that it had when he was given it by injection in the emergency room and he said he would like to have it in injection form instead. He provides no eye contact throughout the discourse of his explanation of events. His reliability as an informant is questionable. When detailing his life story, there is a great deal of entanglement with overlapping events and times. He claims to have only been in [place] until he was age 6. It was a horrible experience. And yet he has [place] tattooed in a large letters along the volar surface of his right arm. At no time did he mention living in [place] and yet his traffic and for contractions of July of this year this to his home as being [facility]. It should also be noted that 2 days prior to his first admission here on 07/19/2020, he was arrested for driving without a license and driving on the wrong side of the road. There are no medical records or no record of his presence in the [place] public record prior to that date. It is entirely likely that he may be malingering with the primary gain of accessing fpc by this homeless man. He is clearly attempting to support his benzodiazepine use claiming that it is the only thing that can hold Satan at bay. PLAN: 1. Continue current medication. Except: We will increase to Geodon 60 mg p.o. twice daily under the likelihood that the assessment of his malingering may be an error and his report that it does provide benefit even though he cannot say what that benefit is.. We will not start Xanax at this time. We will provide Ativan 2 mg at bedtime to assist sleep only while he is in the hospital. He will not be discharged on this medication. Involuntary Hold Information 96 Hour Hold: 96 Hour Involuntary Admission: No 96 Hour Hold Ending Date: 07/22/20 96 Hour Hold Ending Time: 21:00 Mental Status Exam MSE Comments: Mental Status Exam: The patient is an alert interpersonally engaged male appearing approximately his stated age. His hygiene is excellent. He provides no eye contact throughout the discourse of his explanation of events. His reliability as an informant is questionable. When detailing his life story, there is a great deal of entanglement with overlapping events and times. He claims to have only been in [place] until he was age 6. It was a horrible experience. And yet he has [place] tattooed in a large letters along the volar surface of his right arm. At no time did he mention living in [place] and yet his traffic and for contractions of July of this year this to his home as being [facility]. It should also be noted that 2 days prior to his first admission here on 07/19/2020, he was arrested for driving without a license and driving on the wrong side of the road. There are no medical records or no record of his presence in the [place] public record prior to that date. Appearance: no gross neurological deficits., gait is unremarkable; AIMS=0 Speech: Speech is of normal rate and rhythm and easily understood. Thought processes: Thought processes are abstract though if frequently idiosyncratic regarding his satanic delusions.. Judgment is adequate for safety. Associations: intact Psychotic processes: There is no indication of guarding or paranoia. There is no attention to the internal stimuli. Auditory and visual hallucinations are denied. He reports a delusional system regarding his controlled by Kal. However it is not a well-formed delusion in that he has not yet explained how Kal actually controls him without the use of hallucinations or first rank symptoms. Judgment: Insight is good. Problem solving skills are adequate for safety. Orientation: The patient is oriented to person, place time and situation. Memory: no deficits noted in immediate, intermediate, or remote spheres. Attention: The patient is alert and interpersonally engaged. Language: Verbalizations are coherent. Fund of knowledge: Fund of knowledge is adequate. Affect/Mood: Affect is consistent with a depressed mood. pt denies suicidal ideation Affective range is appropriate. Psychosis: perception unimpaired except for his stated satanic delusional system; reality testing intact. Discharge Data Vitals: Last Vital Signs Temp 97.7 F 08/30/20 09:53 Pulse 53 L 08/30/20 09:53 Resp 16 08/30/20 09:53 BP 108/69 08/30/20 09:53 Pulse Ox 97 08/30/20 09:53 Discharge Plan Discharge Patient Disposition: Home Condition: Stable Prescriptions: New trazodone 50 mg Tablet 50 mg PO BEDTIME PRN (Reason: Sleep) Qty: 20 RF: 0 ziprasidone HCl 60 mg Capsule 60 mg PO 0700,1700 Qty: 60 RF: 0 hydroxyzine pamoate 25 mg Capsule 50 mg PO Q6H PRN (Reason: Anxiety) Qty: 30 RF: 0 No Action No Known Home Medications RF: 0 Discharge Orders: Discharge Order (Routine); Ordered 08/30/20 Ordered By: Haim Conteh Referrals: [facility] [Outside] - 1-3 days (call or stop by [facility] and request initial intake for outpatient mental health services. ) Patient Instructions: Trazodone (By mouth), Hydroxyzine Pamoate (By mouth), Ziprasidone (By mouth) Activity Restrictions/Additional Instructions: for help with housing issues... Lauren [facility] for homeless connect program: call Julia at [phone] ext. [phone] Discharge Attestations NPU Time Spent in Discharge Care*: less than 30 min Coding Level of Care Code Acute Residential Builder for [facility] Fwd Diagnoses Cannabis abuse F12.10 Benzodiazepine abuse F13.10 Acute psychosis F23 Malingering Z76.5
== END 2020-08-30 13:18 | disposition home or self-care (01) | DRG 885 ==
LOC: ER 08-28 00:11 → NP 08-28 02:58
PROVIDERS: Emergency Medicine; Admitting Provider Psychiatry & Neurology Psychiatry; Visit Provider Psychiatry & Neurology Psychiatry
DX: F23 Brief psychotic disorder (principal); F12.10 Cannabis abuse, uncomplicated; Z76.5 Malingerer [conscious simulation]; F11.10 Opioid abuse, uncomplicated; F17.210 Nicotine dependence, cigarettes, uncomplicated
CPT/HCPCS: 12345; 80053; 80306; 80307; 81003; 85025; 96372; 99284; J3486

== ENCOUNTER 2020-10-11 07:48 | Emergency (ER) | payer SELFPAY ==
[2020-10-11 07:50] VITALS: BP 125/88; PULSE 116; RESP 18; TEMP 36.5; O2SAT 97; BMI 28.1
--- NOTE | 2020-10-11 08:09 | ED_ITS ---
HPI - Back Pain/Injury General: Chief Complaint: Back Pain/Injury Stated Complaint: Back Pain Time Seen by Provider: 10/11/20 07:55 History of Present Illness: HPI Narrative: Patient complains about waking up with trapezius pain right sides been going on for a few days with no relief. Has not tried any medications. Denies any injury. MD elicited complaint: back pain Pertinent past history: prior back pain Onset (ago): day(s) Timing: constant and progressively worsening Severity: moderate Similar Symptoms Previously: Yes Quality: burning Location: thoracic spine (Right upper side back) Radiation: other (Right arm) Exacerbating factors: movement Relieving factors: immobilization Associated symptoms: Reports no associated symptoms; Deny abdominal pain, chills, fever(s), nausea or vomiting Review of Systems Const: Denies: fever(s), chills or body aches Eyes: Denies: change in vision or blurry vision ENMT: Denies: throat pain or nasal congestion Card: Denies: chest pain or dyspnea on exertion Resp: Denies: dyspnea, productive cough or non-productive cough GI: Denies: abdominal pain, nausea or vomiting : Denies: difficulty urinating Musc: Reports: other (Right trapezius pain); Denies: extremity pain Skin/Breast: Denies: rash Neuro: Denies: headache(s) Psych: Denies: anxiety or depression Harpreet/Lymph: Denies: easy bruising PFSH ED PFSH: Social History (Updated 07/19/20 @ 04:34 by Zeenat Monaco LPN) Smoking and tobacco status: current every day smoker cigarettes Quit status (tobacco): not considering quitting Second hand smoke exposure: Yes Smoking risk assessment/counseling performed?: Yes Alcohol intake: current Desire information about alcohol rehabilitation?: No Physical Exam Const: COMMON NORMALS: no acute distress, average body habitus and patient oriented x3 HENMT: COMMON NORMALS: normocephalic HEAD & SCALP: normal to inspection and normocephalic FACE & SINUS: normal facial exam Eye: COMMON NORMALS: conjunctivae normal GENERAL EYE: appearance normal, both eyes and all related structures CONJUNCTIVA: Yes conjunctivae normal Neck/C-Spine: COMMON NORMALS: no JVD Chest: COMMONS NORMALS: normal inspection of the chest Resp: COMMON NORMALS: normal respiratory effort and clear to auscultation bilaterally AUSCULTATION: clear to auscultation bilaterally Cardio: COMMON NORMALS: no JVD, regular rate and regular rhythm RATE: regular rate RHYTHM: regular rhythm GI: COMMON NORMALS: Normal to inspection, nondistended, normoactive bowel sounds present Extremity: COMMON NORMALS: normal to inspection and full ROM NARRATIVE EXTREMITY EXAM: Patient has tenderness to the right trapezius to the whole body of the muscle. Complains about pain going down to the right shoulder area with range of motion but does have full range of motion distal neurovascular intact can move all fingers without any difficulty Neuro: COMMON NORMALS: patient oriented x3 Course Vital Signs: Vital signs: Vital Signs Temperature 97.7 F 10/11/20 07:50 Pulse Rate 116 H 10/11/20 07:50 Respiratory Rate 18 10/11/20 07:50 Blood Pressure 125/88 10/11/20 07:50 Pulse Oximetry 97 10/11/20 07:50 MDM - Back Pain/Injury MDM Narrative: Medical decision making narrative: Patient requesting MRI explained to patient that he needs to establish with a primary care clinic to get evaluation see if MRI is appropriate for his condition encourage patient to try medication massage alternating heat and cold first prior to try and obtain MRI Discharge Plan Discharge Patient Disposition: Home Clinical Impression: Trapezius strain Qualifiers: Encounter type: initial encounter Laterality: right Qualified Code(s): S46.811A - Strain of other muscles, fascia and tendons at shoulder and upper arm level, right arm, initial encounter Condition: Stable Prescriptions: New cyclobenzaprine 5 mg tablet 5 mg PO TID PRN (Reason: muscle spasm) Qty: 7 RF: 0 ketorolac 10 mg tablet 10 mg PO TID PRN (Reason: pain) 3 Days Qty: 9 RF: 0 No Action trazodone 50 mg Tablet 50 mg PO BEDTIME PRN (Reason: Sleep) Qty: 20 RF: 0 ziprasidone HCl 60 mg Capsule 60 mg PO 0700,1700 Qty: 60 RF: 0 hydroxyzine pamoate 25 mg Capsule 50 mg PO Q6H PRN (Reason: Anxiety) Qty: 30 RF: 0 Discharge Orders: Discharge ED (Routine); Ordered 10/11/20 Ordered By: Juaquin Wilson Discharge Diet: Usual diet Discharge Activity: Increase activity as tolerated Patient Instructions: Muscle Strain (ED) Activity Restrictions/Additional Instructions: Follow-up with medical provider as directed. Take medications as prescribed. Return to the ER or your medical provider if condition worsens. Please read and understand discharge instructions. If any questions ask please. Establish at [address] [facility] here. Get massages done on the trapezius muscle. Alternate heat and ice to the muscle. Coding Level of Care Code ED Clinical Neuropsychologist for Meche Vásquez
[2020-10-11] MEDS: ketorolac 10 mg Tablet PO (08:23)
[2020-10-11] MEDS: orphenadrine 30 mg/mL Inj 2 mL 60 MG IM (08:23)
== END 2020-10-11 08:26 | disposition home or self-care (01) ==
PROVIDERS: Emergency Provider Nurse Practitioner Family
DX: S46.811A Strain of other muscles, fascia and tendons at shoulder and upper arm level, right arm, initial encounter (principal); F17.210 Nicotine dependence, cigarettes, uncomplicated; X58.XXXA Exposure to other specified factors, initial encounter
CPT/HCPCS: 12345; 96372; 99281; 99283; J2360

== ENCOUNTER 2020-12-10 13:41 | Inpatient (IN) | payer SELFPAY ==
[2020-12-10 13:43] VITALS: BP 123/81; PULSE 75; RESP 18; O2SAT 99; BMI 27.3
[2020-12-10] MEDS: ziprasidone 20 mg/mL SDV IM (14:09)
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
[2020-12-10 15:02] LABS: Basophils # 0.1 10^3/uL (0.0-0.1); Basophils % 0.5 %; Eosinophils # 0.1 10^3/uL (0.0-0.8); Eosinophils % 0.7 %; Hematocrit 44.5 % (42.0-52.0); Hemoglobin 14.9 g/dL (11.7-16.6); Lymphocytes # 3.8 10^3/uL (0.8-4.8); Lymphocytes % 35.6 %; Mean Corpuscular HGB Conc 33.5 g/dL (30.0-36.0); Mean Corpuscular Hemoglobin 29.4 pg (28.0-34.0); Mean Corpuscular Volume 87.9 fL (80-94); Mean Platelet Volume 11.9 fL (7.4-10.4); Monocytes # 1.2 10^3/uL (0.2-0.9); Monocytes % 11.4 %; Neutrophils # 5.45 10^3/uL (1.8-7.7); Neutrophils % 51.3 %; Nucleated Red Blood Cells % 0 %; Platelet Count 240 10^3/cmm (130-400); Red Blood Count 5.06 10^6/uL (4.1-5.3); Red Cell Distribution Width 12.8 % (12.1-15.1); White Blood Count 10.6 10^3/uL (4.0-10.0)
[2020-12-10 15:07] LABS: Add Urine Microscopic? NO
[2020-12-10 15:18] LABS: Urine Appearance Clear (CLEAR); Urine Color Yellow (Yellow); pH Urine 5 (5-7)
[2020-12-10 15:20] LABS: Bilirubin Urine Neg (Negative); Blood Urine Neg (Negative); Glucose Urine UA Norm (Normal); Ketones Urine 2+ (Negative); Leukocyte Esterase Urine Negative (Negative); Nitrate Urine Negative (Negative); Protein Urine Neg (Negative); Specific Gravity, Urine 1.025 (1.005-1.030); Urobilinogen Urine 4 mg/dL (Negative)
[2020-12-10 15:25] LABS: Alanine Aminotransferase 50 U/L (0-41); Albumin Level 4.2 g/dL (3.5-5.2); Alkaline Phosphatase 65 IU/L (40-130); Anion Gap 14.9 (5-19); Aspartate Amino Transferase 32 U/L (0-40); Blood Urea Nitrogen 11 mg/dL (6-20); Calcium 9.3 mg/dL (8.5-10.5); Carbon Dioxide 23 mmol/L (22-29); Chloride 104 mmol/L (98-107); Globulin 2.9 g/dL (1.3-4.6); Glomerular Filtration Rate 196.6 mL/min (90-130); Glucose 86 mg/dL (65-115); Osmolality Calculated 285 mOsm/kg (285-295); Potassium 3.9 mmol/L (3.5-5.1); Sodium 138 mmol/L (136-145); Total Bilirubin 0.8 mg/dL (0.15-1.2); Total Protein 7.1 g/dL (6.6-8.7)
[2020-12-10 15:26] LABS: Amphetamines Screen Urine Positive (Negative); Barbiturates Screen Urine Negative (Negative); Benzodiazepines Screen Urine Negative (Negative); Cocaine Screen Urine Negative (Negative); Opiate Screen Urine Negative (Negative); PCP Screen Urine Negative (Negative); THC Screen Urine Positive (Negative)
[2020-12-10 15:30] LABS: Acetaminophen < 5.0 ug/mL (10-30); Alcohol Level < 10 mg/dL (0-10); Salicylate < 0.3 mg/dL (3-10)
[2020-12-10 15:46] VITALS: BP 127/87; PULSE 78; RESP 18; O2SAT 98
[2020-12-10 15:52] VITALS: BP 103/60; PULSE 69; RESP 18; TEMP 37; O2SAT 99
[2020-12-10 16:28] VITALS: BP 103/60; PULSE 69; RESP 16; TEMP 37; O2SAT 99
[2020-12-10 20:40] VITALS: RESP 16
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
[2020-12-11 06:00] VITALS: BP 105/61; PULSE 81; RESP 16; TEMP 36.9; O2SAT 94; BMI 27.3
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
[2020-12-11] MEDS: blistex lip oint 7 gm Tube 1 APPLIC TOPICAL ×3 (13:35→17:07)
[2020-12-11 13:53] VITALS: BP 109/67; PULSE 102; RESP 18; TEMP 36.8
[2020-12-11] MEDS: nicotine 2 mg Gum BUCCAL (17:07)
[2020-12-11 19:52] VITALS: BP 108/61; PULSE 77; RESP 20; TEMP 36.6; O2SAT 95
[2020-12-11] MEDS: hyDROXYzine 25 mg Capsule 50 MG PO (20:12)
[2020-12-11] MEDS: trazodone 50 mg Tablet PO (20:15)
[2020-12-12 06:00] VITALS: BP 103/65; PULSE 80; RESP 18; TEMP 36.6; O2SAT 96
[2020-12-12 14:00] VITALS: BP 108/66; PULSE 89; RESP 18; TEMP 36.1; O2SAT 96
--- NOTE | 2020-12-12 17:18 | PM.NPN ---
Subjective NPU Subjective: Interval history: Chuy presents today continuing to be resistant to psychotropic medication unless it is Xanax. He began discussing possible discharge even though he knows he is on a 96-hour hold. He went on a long rant about these demons and fighting the devil and fighting leviathans and would have kept going if I had and cut the interview short. This fixed delusion has only been cracked by antipsychotics and he continues to refuse. Mental Status Exam MSE Comments: This is a well-nourished, well-developed white male in hospital scrubs with limited grooming and eye contact. No abnormal movements except for psychomotor retardation. Mostly uncooperative exam in mild distress. Speech was decreased rate and volume . Mood described as anxious, affect congruent. Thought process organized. Thought content: Patient denied suicidal ideation or homicidal ideation, there were no delusions reported but clear paranoid, persecutory and hyper temple delusions noted. He denied auditory or visual hallucinations but did report seeing things that other people could not see. Especially demons and leviathans. Attention and concentration appeared intact and memory was unreliable but none were formally tested. He is alert and oriented to person and place. Insight and judgment are impaired and impulse control is impaired. Vitals/I&O/Wt Last Vital Signs Temp 98.4 F 12/12/20 20:45 Pulse 77 12/12/20 20:45 Resp 18 12/12/20 20:45 BP 127/80 12/12/20 20:45 Pulse Ox 97 12/12/20 20:45 Weight last 48 hrs Weight 79.379 kg Data NPU : 12/10/20 14:47 12/10/20 14:47 A&P Additional A&P Information (1) Cannabis abuse: (2) Benzodiazepine abuse: (3) Acute psychosis: Additional A&P Information This is a 30-year-old white male who presents with active addiction and latesha psychosis with very fixed concepts who endorses an openness to a trial of Geodon. 1. Continue current medication. We will consider restarting Geodon with his permission. We will not start Xanax at this time. 2. Continue every 15 minute checks for safety. 3. Encourage individual, group and milieu therapy. 4. Encourage sober living treatment at the highest level of care to which he is willing to commit. Involuntary Hold Information 96 Hour Hold: 96 Hour Involuntary Admission: Yes 96 Hour Hold Ending Date: 07/16/20 96 Hour Hold Ending Time: 14:40 Attestations NPU Medical Necessity Statement*: Inpatient hospitalization is medically necessary and the clinically appropriate intervention at this time. We will monitor medications and make changes as indicated. Likely length of stay 4-6 days. Coding Level of Care Code Acute Merchandising Director for Meche Vásquez
[2020-12-12] MEDS: nicotine 2 mg Gum BUCCAL (17:22)
[2020-12-12 20:45] VITALS: BP 127/80; PULSE 77; RESP 18; TEMP 36.9; O2SAT 97
[2020-12-12] MEDS: hyDROXYzine 25 mg Capsule 50 MG PO (20:51)
[2020-12-12] MEDS: blistex lip oint 7 gm Tube 1 APPLIC TOPICAL (20:51)
[2020-12-12] MEDS: trazodone 50 mg Tablet PO (20:51)
--- NOTE | 2020-12-12 22:27 | PC.NURSE ---
PM ASSESSMENT PT DENIES PAIN, DENIES AH/VH, DENIES SI/HI. PT CALM AND COOPERATIVE WITH STAFF, PT INTERACTS APPROPRIATELY WITH OTHER PATIENTS, PT DOES STATE THAT HE IS MILDLY ANXIOUS AND IS UPSET THAT HE IS HERE. PT IS CLEARLY COMMUNICATING WITH STAFF, ANSWERS QUESTIONS APPROPRIATELY. PT V/S ARE WNL, HEART/LUNG SOUNDS ARE WNL. PT ATE HIS SNACK AND WENT TO BED. WILL CONTINUE TO MONITOR PT BEHAVIOR.
[2020-12-13 06:00] VITALS: BP 94/63; PULSE 72; RESP 17; TEMP 36.6; O2SAT 98
[2020-12-13 13:48] VITALS: BP 105/58; PULSE 69; RESP 18; TEMP 36.9; O2SAT 96
--- NOTE | 2020-12-13 17:52 | PM.NPN ---
Subjective NPU Subjective: Interval history: Chuy presents today continuing to request Xanax, initially refusing psychotropic medication and continuing his delusional ranting about the devil and the things that I will continues to do to him. The majority of our 15 to 20 minutes today was spent on him talking about the most torturous times that the devil has had with him. The fact that, once he admitted that methamphetamine use for him was a real thing, his use was to stay awake because of the unimaginable torture that transpires when he sleeps so he will do anything to stay awake. Ultimately we discussed the risks, benefits and alternatives of restarting the Geodon with meals tomorrow and he understood and agreed to proceed as is in his note. Mental Status Exam MSE Comments: This is a well-nourished, well-developed white male in hospital scrubs with limited grooming and eye contact. No abnormal movements except for psychomotor retardation. Mostly uncooperative exam in mild distress. Speech was decreased rate and volume . Mood described as anxious, affect congruent. Thought process organized. Thought content: Patient denied suicidal ideation or homicidal ideation, there were no delusions reported but clear paranoid, persecutory and hyper orthodoxy delusions noted. He denied auditory or visual hallucinations but did report seeing things that other people could not see. Especially demons and leviathans. Attention and concentration appeared intact and memory was unreliable but none were formally tested. He is alert and oriented to person and place. Insight and judgment are impaired and impulse control is impaired. Vitals/I&O/Wt Last Vital Signs Temp 97.6 F 12/13/20 20:17 Pulse 91 12/13/20 20:17 Resp 18 12/13/20 20:17 BP 134/74 12/13/20 20:17 Pulse Ox 97 12/13/20 20:17 Data NPU : 12/10/20 14:47 12/10/20 14:47 A&P Additional A&P Information (1) Cannabis abuse: (2) Benzodiazepine abuse: (3) Acute psychosis: Additional A&P Information This is a 30-year-old white male who presents with active addiction and latesha psychosis with very fixed concepts who endorses an openness to a trial of Geodon. 1. Continue current medication. Restart Geodon 40 mg p.o. twice daily with meals. 2. Continue every 15 minute checks for safety. 3. Encourage individual, group and milieu therapy. 4. Encourage sober living treatment at the highest level of care to which he is willing to commit. Involuntary Hold Information 96 Hour Hold: 96 Hour Involuntary Admission: Yes 96 Hour Hold Ending Date: 07/16/20 96 Hour Hold Ending Time: 14:40 Attestations NPU Medical Necessity Statement*: Inpatient hospitalization is medically necessary and the clinically appropriate intervention at this time. We will monitor medications and make changes as indicated. Likely length of stay 3-5 days. Coding Level of Care Code Acute Buildings And Grounds Director for Meche Vásquez
[2020-12-13] MEDS: nicotine 2 mg Gum BUCCAL ×2 (17:57→20:58)
[2020-12-13 20:17] VITALS: BP 134/74; PULSE 91; RESP 18; TEMP 36.4; O2SAT 97
[2020-12-13] MEDS: hyDROXYzine 25 mg Capsule 50 MG PO (20:38)
[2020-12-13] MEDS: trazodone 50 mg Tablet PO (20:38)
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
[2020-12-14 06:00] VITALS: BP 123/76; PULSE 103; RESP 18; TEMP 36.6; O2SAT 97
[2020-12-14] MEDS: ziprasidone hcl 40 mg Capsule PO (08:40)
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
[2020-12-14 14:14] VITALS: BP 123/76; PULSE 103; RESP 18; TEMP 36.6; O2SAT 97
== END 2020-12-14 15:00 | disposition home or self-care (01) | DRG 885 ==
LOC: ER 14:39 → NP 15:44
PROVIDERS: Admitting Provider Psychiatry & Neurology Psychiatry; Emergency Provider Family Medicine; Visit Provider Psychiatry & Neurology Psychiatry
DX: F23 Brief psychotic disorder (principal); F17.210 Nicotine dependence, cigarettes, uncomplicated; F15.90 Other stimulant use, unspecified, uncomplicated; F12.10 Cannabis abuse, uncomplicated; F19.10 Other psychoactive substance abuse, uncomplicated; Z91.14 Patient's other noncompliance with medication regimen
CPT/HCPCS: 12345; 80053; 80306; 80307; 81003; 85025; 96372; 99281; J3486

== ENCOUNTER 2021-05-31 14:10 | Inpatient (IN) | payer OTHER, SELFPAY ==
[2021-05-31 14:54] VITALS: BP 130/86; PULSE 129; RESP 18; TEMP 37; O2SAT 97; BMI 25.0
--- NOTE | 2021-05-31 15:17 | ED_ITS ---
HPI - Psych General: Chief Complaint: Anxiety Stated Complaint: WANTS ANXIETY MEDS Time Seen by Provider: 05/31/21 15:13 Source: patient Mode of arrival: ambulatory Limitations: no limitations History of Present Illness: HPI Narrative: Patient is a 30-year-old male who presents to the ED today requesting codeine with promethazine and Xanax to treat evil spirits inside of him. He tells me that he feels inside and states the devil is torturing him.He tells me that he has evil spirits inside of him that are wanting to get out and kill people. He states he has termites eating his brain. Patient does not have logical answers to questions. 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 Patient becomes extremely agitated when told he will not be receiving codeine or Xanax. complaint: other (psychosis) History of same: Yes Exacerbating factors: drug use Associated symptoms: Reports delusions Treatments prior to arrival: none Review of Systems General: Reports: ROS unobtainable due to mental status (pt is acutely psychotic ) [facility] ED PFSH: Social History (Updated 07/19/20 @ 04:34 by Zeenat Monaco LPN) Smoking and tobacco status: current every day smoker cigarettes Quit status (tobacco): not considering quitting Second hand smoke exposure: Yes Smoking risk assessment/counseling performed?: Yes Alcohol intake: current Desire information about alcohol rehabilitation?: No Physical Exam Const: COMMON NORMALS: no acute distress and alert EXAM LIMITATIONS: altered mental status GENERAL APPEARANCE: cooperative ORIENTATION/CONSCIOUSNESS: Yes awake OTHER: patient appears very drowsy at times but at other times is extremely irritable and firm speaking when he is demanding his codeine and xanex Resp: COMMON NORMALS: normal respiratory effort Cardio: COMMON NORMALS: regular rhythm RATE: tachycardic RHYTHM: regular rhythm Neuro: SENSORIUM/ORIENTATION: Yes alert Psych: APPEARANCE: Yes grossly normal ATTITUDE: Yes Withdrawn affect prese nt (at times) and Yes agitated ACTIVITY/MOTOR BEHAVIOR: Yes appropriate eye contact SPEECH: Yes Other speech symptoms (sometimes slow and whispered) THOUGHT PROCESS: disorganized and Illogical thought process present THOUGHT CONTENT: Yes delusions ATTENTION/CONCENTRATION: Yes attention grossly impaired and Yes concentration grossly impaired MEMORY/COGNITION: Yes cognition grossly impaired INSIGHT: Poor insight present (Psych) JUDGEMENT: Poor judgement present (Psych) Course Consultations: Consultation #1: Dr. Salinas-accepts admit to NPU (pending lab clearance) Vital Signs: Vital signs: Vital Signs Temperature 98.6 F 05/31/21 14:54 Pulse Rate 110 H 05/31/21 15:18 Respiratory Rate 18 05/31/21 14:54 Blood Pressure 125/80 05/31/21 15:18 Pulse Oximetry 98 05/31/21 15:18 MDM - Psych Lab Data: Labs: Lab Results 05/31/21 Range/Units 16:48 WBC 17.2 H (4.0-10.0) 10^3/ uL RBC 4.93 (4.1-5.3) 10^6/u L Hgb 14.5 (11.7-16.6) g/dL Hct 42.7 (42.0-52.0) % MCV 86.6 (80-94) fL MCH 29.4 (28.0-34.0) pg MCHC 34.0 (30.0-36.0) g/dL RDW 13.5 (12.1-15.1) % Plt Count 250 (130-400) 10^3/c mm MPV 11.7 H (7.4-10.4) fL Neut % (Auto) 59.8 % Lymph % (Auto) 30.8 % Emery % (Auto) 8.4 % Eos % (Auto) 0.2 % Baso % (Auto) 0.4 % Neut # (Auto) 10.26 H (1.8-7.7) 10^3/u L Lymph # (Auto) 5.3 H (0.8-4.8) 10^3/u L Emery # (Auto) 1.4 H (0.2-0.9) 10^3/u L Eos # (Auto) 0.0 (0.0-0.8) 10^3/u L Baso # (Auto) 0.1 (0.0-0.1) 10^3/u L Nucleated RBC % (a uto) 0 % Nucleated RBCs # 0.0 /100WBC Discharge Plan Discharge Patient Disposition: Admitted As Inpatient 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
[2021-05-31 15:18] VITALS: BP 125/80; PULSE 110; O2SAT 98
[2021-05-31] MEDS: OLANZapine 5 mg ODT PO (16:46)
[2021-05-31] MEDS: LORazepam 1 mg Tablet PO (16:46)
--- NOTE | 2021-05-31 16:51 | PC.NURSE ---
Sitter at doorway. Pt is scrubs
[2021-05-31 16:52] VITALS: BP 143/82; PULSE 83; RESP 17; O2SAT 97
[2021-05-31 16:53] LABS: Basophils # 0.1 10^3/uL (0.0-0.1); Basophils % 0.4 %; Eosinophils % 0.2 %; Hematocrit 42.7 % (42.0-52.0); Hemoglobin 14.5 g/dL (11.7-16.6); Lymphocytes # 5.3 10^3/uL (0.8-4.8); Lymphocytes % 30.8 %; Mean Corpuscular Hemoglobin 29.4 pg (28.0-34.0); Mean Corpuscular Volume 86.6 fL (80-94); Mean Platelet Volume 11.7 fL (7.4-10.4); Monocytes # 1.4 10^3/uL (0.2-0.9); Monocytes % 8.4 %; Neutrophils # 10.26 10^3/uL (1.8-7.7); Neutrophils % 59.8 %; Nucleated Red Blood Cells % 0 %; Platelet Count 250 10^3/cmm (130-400); Red Blood Count 4.93 10^6/uL (4.1-5.3); Red Cell Distribution Width 13.5 % (12.1-15.1); White Blood Count 17.2 10^3/uL (4.0-10.0)
[2021-05-31 17:37] LABS: Alanine Aminotransferase 40 U/L (0-41); Albumin Level 4.3 g/dL (3.5-5.2); Alkaline Phosphatase 67 IU/L (40-130); Anion Gap 14.1 (5-19); Aspartate Amino Transferase 30 U/L (0-40); Blood Urea Nitrogen 12 mg/dL (6-20); Calcium 8.9 mg/dL (8.5-10.5); Carbon Dioxide 23 mmol/L (22-29); Chloride 105 mmol/L (98-107); Globulin 2.9 g/dL (1.3-4.6); Glomerular Filtration Rate 159.3 mL/min (90-130); Glucose 91 mg/dL (65-115); Osmolality Calculated 285 mOsm/kg (285-295); Potassium 4.1 mmol/L (3.5-5.1); Sodium 138 mmol/L (136-145); Total Bilirubin 0.8 mg/dL (0.15-1.2); Total Protein 7.2 g/dL (6.6-8.7)
[2021-05-31 17:44] LABS: Acetaminophen < 5.0 ug/mL (10-30); Alcohol Level < 10 mg/dL (0-10); Salicylate < 0.3 mg/dL (3-10)
[2021-05-31 18:36] VITALS: BP 112/67; PULSE 85; RESP 18; O2SAT 97
--- NOTE | 2021-05-31 18:47 | PC.NURSE ---
Sitter at doorway. Resting with lights off. No acute distress.
[2021-05-31 20:37] VITALS: BP 126/84; PULSE 73; RESP 18; O2SAT 98
[2021-05-31 22:00] VITALS: BP 126/84; PULSE 73; RESP 18; TEMP 37; O2SAT 98
--- NOTE | 2021-05-31 23:08 | PC.NURSE ---
Skin assessment revealed no wounds or injuries.
--- NOTE | 2021-05-31 23:16 | PC.NURSE ---
HX Pt was last discharged from NPU on 12/14/20. Released from unit on the following medications by Dr. Billy Salinas. Hydroxyzine Pamoate 50mg PO q6h PRN Trazodone 50mg PO bedtime Ziprazodone HCL 40mg PO bid@0700,1700 Pt is off medications and is delusional. His story is very much the same. He is fighting demons, the murrell of good and evil depends on him. Pt endorses seeing Lizard people and knowing things that others cannot begin to understand. Pt received Ativan in the ED, he is resting in his room at this time.
--- NOTE | 2021-06-01 05:52 | PC.NURSE ---
Dr Salinas/Moi 40mg PO @2100 ordered, verbal order; New physician may change at his discretion.
[2021-06-01 06:00] VITALS: RESP 18
[2021-06-01 13:50] LABS: Amphetamines Screen Urine Positive (Negative); Barbiturates Screen Urine Negative (Negative); Benzodiazepines Screen Urine Positive (Negative); Cocaine Screen Urine Negative (Negative); Opiate Screen Urine Negative (Negative); PCP Screen Urine Negative (Negative); THC Screen Urine Positive (Negative)
[2021-06-01 14:00] VITALS: RESP 18
--- NOTE | 2021-06-01 14:40 | P.HP_ITS ---
Providers/Chief Complaint Admitting Physician: Xavi Hill MD Chief Complaint: WANTS ANXIETY MEDS HPI NPU History of Present Illness Chuy Valenzuela is a 30 year old male with a history of drug-induced psychotic disorder with delusions, who was been readmitted for definitive treatment of a similar presentation yesterday. The ED provider felt he was psychotic and a danger to himself, so he was admitted on a 96-hour hold. The note from the ED says: Patient is a 30-year-old male who presents to the ED today requesting codeine with promethazine and Xanax to treat evil spirits inside of him. He tells me that he feels inside and states the devil is torturing him.He tells me that he has evil spirits inside of him that are wanting to get out and kill people. He states he has termites eating his brain. Patient does not have logical answers to questions. 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 Patient becomes extremely agitated when told he will not be receiving codeine or Xanax. The patient reports that due to his anxiety and depression it has gotten to the point where I cannot do anything. He says, every night I leave my body and fight the devil. He torturous me in my sleep. He explains, there are 4 of me, for cells if you well. Every night I need to be eaten by a leviathan to control my anxiety. He completely believes that these events are happening. He says that the devil has killed his 2 daughters. He says he uses methamphetamine to give him strength to fight the devil. He anticipates my question and says, do not tell me that the meth is causing the voices and the devil. He then explains how methamphetamine is helpful in fighting the devil. He also says he has made 5 or 6 suicide attempts because of his hopelessness and depression. The last time was 1-1/2 years ago, when he tried to hang himself. He has been taking no medications for his psychosis. He has been on this unit for similar symptoms several times before. Each time he has asked for benzodiazepines, saying they are the only thing that will help him. He says he injects methamphetamine about once a week. He says, I love smoking marijuana. He last used yesterday. He denies significant alcohol use. He says he smokes about 1/2 pack of cigarettes per day. I discussed using antipsychotic medication to treat the patient's psychosis. He says that the only thing that will help him is benzodiazepines asks for Xanax. When I told him I am not willing to prescribe benzodiazepines for his current condition, he became highly agitated, yelling, and threatening. A show of support was called in order to contain his agitation. Psychiatric history: As above. Substance use history: As above. Family history: He says that his brothers, sisters, and mother all suffer from depression and anxiety. He says that his father by suicide when he was 3 years old. 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 However he is now currently not working. He says that he is not , but has 2 daughters by my baby alyson. He describes cleve t the devil has killed them both. Legal history: He says that he currently has trespassing charges at a motel. He explains that he was living with a roommate who got upset because he was constantly talking to himself. The roommate kicked him out, but he returned to the motel anyway. The patient says the police were called and that is when he got the charges. Medical history: He denies any significant medical history. Meds NPU Home Medications Medication Instructions Recorded Confirmed Last Taken Type No Known Home Medications 06/01/21 06/01/21 Unknown History Allergies Allergy/AdvReac Type Severity Reaction Status Date / Time No Known Allergies Allergy Verified 05/31/21 16:15 PFS NPU PFS: Social History (Updated 07/19/20 @ 04:34 by Zeenat Monaco LPN) Smoking and tobacco status: current every day smoker cigarettes Quit status (tobacco): not considering quitting Second hand smoke exposure: Yes Smoking risk assessment/counseling performed?: Yes Alcohol intake: current Desire information about alcohol rehabilitation?: No Mental Status Exam MSE Comments: This is a well-nourished, well-developed white male in hospital scrubs with disheveled appearance and intense eye contact. No abnormal movements except for psychomotor agitation. He was quite cooperative until I told him that I would not prescribe him Xanax. Then he became very uncooper ative, agitated, hostile, and threatening. I retreated from the room at that point. Speech was normal rate and volume until he got agitated. Mood described as depressed and anxious, affect congruent. Thought process became disorganized as he got agitated. Thought content: The patient is floridly psychotic with delusions that he battles the devil every night, that the devil torture him and has killed his daughters. He both sees and hears the devil talking. He has other delusions about having 4 different selves and being eaten by a leviathan nightly. Patient denied suicidal ideation or homicidal ideation. Attention and concentration appeared intact initially and he was able to spell the word WORLD correctly forwards and backwards. Memory was impaired. He remembered 3/3 words immediately and 0/3 at 3 minutes. He does know the names of the past 4 presidents, but had thought blocking when trying to remember them. He is alert and oriented x 3. Insight and judgment are severely impaired by psychosis, and impulse control is also severely impaired. Vitals/I&O/Wt Last Vital Signs Temp 98.6 F 05/31/21 22:00 Pulse 73 05/31/21 22:00 Resp 18 06/01/21 06:00 BP 126/84 05/31/21 22:00 Pulse Ox 98 05/31/21 22:00 Weight last 48 hrs Weight 72.575 kg Data NPU : 05/31/21 16:48 05/31/21 16:48 A&P Additional A&P Information This is a 30-year-old white male who presents with active intravenous methamphetamine use and florid psychosis with latesha delusions of persecution that he feels the need to defend himself against, who is on a 96-hour hold, which was taken out in the ED, because he became severely agitated when told he could not have benzodiazepines. He had a similar severe outburst when I met with him on the unit. 1. Start antipsychotic medication. He is currently refusing medication. 2. Continue every 15 minute checks for safety. 3. Encourage individual, group and milieu therapy. 4. Encourage sober living treatment at the highest level of care to which he is willing to commit. 5. Continue 96-hour hold until the patient is able to cooperate with treatment and is no longer a danger to himself or others. Involuntary Hold Information 96 Hour Hold: 96 Hour Involuntary Admission: Yes 96 Hour Hold Ending Date: 06/06/21 96 Hour Hold Ending Time: 15:15 Attestations NPU Medical Necessity Statement*: Inpatient hospitalization is medically necessary and the clinically appropriate intervention at this time. He is psychotic and dangerous to self and others. We will recommend and monitor medications and make changes as indicated. Likely length of stay 5-7 days. Coding Level of Care Code Acute Forest Logistics Manager for Meche Vásquez
[2021-06-01] MEDS: diphenhydrAMINE 50 mg/mL SDV 1mL IM (14:46)
[2021-06-01] MEDS: LORazepam 2 mg/mL INJ 1 mL IM (14:47)
[2021-06-01] MEDS: haloperidol inj 5 mg/mL INJ 1 mL IM (14:47)
--- NOTE | 2021-06-01 14:49 | PC.NURSE ---
PRN Pt became very agitated, yelling and screaming!!! Verbal threats to nursing staff. Administered a B52 per Dr's verbal orders, 5mg Haloperidol 2mg ativan, 50mg Benadryl. He agreed that he would take it to calm down a bit.
--- NOTE | 2021-06-01 18:00 | PC.NURSE ---
Addendum entered by Malissa Rosario RN 06/02/21 01:41: code 10@1447 on 06/01/21 Delmer arrived on shift after 1730 Original Note: called pharmacy Discrepancy of Ativan 2mg/1ml vial in Pyxis created by SUDHA and TRISTAN prior to my arrival on shift, both nurses pulled a vial, only one administered, the other wasted, on same pull from yis. Count was completed by SUDHA and DELMER, descrepancy found, neither knew how to correct error. Delmer Notified Pharmacy staff on both shifts of this discrepancy, d/t activity in ED, Roosevelt notified on day shift, he said he would call me back and failed to do s. Later in the evening DELMER called [employer] in Pharmacy, to determine how to fix the error in count of Ativan. Delmer and NIKKI on overnight cashier created discrepancy, noted it in pyxis, and corrected this error. Delmer will have SUDHA notate the account and correct adminstration in the [facility] during their code 10 on this pt.
--- NOTE | 2021-06-01 18:27 | PC.RESP ---
Smoking Cessation information sent to patient.
[2021-06-01 20:18] VITALS: BP 98/59; PULSE 78; RESP 20; TEMP 36.8; O2SAT 96
[2021-06-01] MEDS: ziprasidone hcl 40 mg Capsule PO (21:03)
--- NOTE | 2021-06-02 01:45 | PC.NURSE ---
called pharmacy Discrepancy of Ativan 2mg/1ml vial in Pyxis created by SUDHA and TRISTAN prior to my arrival on shift, each nurse pulled one vial of Ativan 2mg/ml vial from pyxis. TRISTAN administered one dose of Ativan 2mg/1ml to pt, SUDHA wasted the 2nd vial that she pulled by mistake, on same pull from pxyis. Count was completed by SUDHA and DELMER, descrepancy found, neither knew how to correct error. Delmer Notified Pharmacy staff on both shifts of this discrepancy, d/t activity in ED, Roosevelt notified on day shift, and he stated, he would call me back and he failed to do so. Later in the evening DELMER called [employer] in Pharmacy, to determine how to fix the error in count of Ativan. Delmer and NIKKI on mail examiner created discrepancy, noted it in pyxis, and corrected this error. Delmer will have SUDHA notate the account in [email or web address].
[2021-06-02 06:00] VITALS: BP 104/66; PULSE 107; RESP 19; TEMP 37.6; O2SAT 95
--- NOTE | 2021-06-02 12:46 | PC.NURSE ---
Ativan Count During a code 10 on 06/01/21 at approximately 1430 while assisting Mati CNC MACHINIST pull the injections we both pulled Ativan @ mg vials due to Gregory Siu saying she had not counted yet. I assumed she hadn't pulled a vial yet so I did also. The second vial was wasted and credited back to the patient which made the count short. The count was resolved by the following shift and the pharmacy.
[2021-06-02 14:00] VITALS: BP 87/48; PULSE 122; RESP 17; TEMP 38.1; O2SAT 96
[2021-06-02 16:58] LABS: SARS Covid-2 Antigen Positive (Negative)
--- NOTE | 2021-06-02 20:18 | XRR_ITS ---
PROCEDURE INFORMATION: Exam: XR Chest Exam date and time: 06/02/2021 8:18 PM Age: 30 years old Clinical indication: Chest pressure; Patient HX: C/O chest pain TECHNIQUE: Imaging protocol: XR of the chest. Views: 1 view. Total images: 1 COMPARISON: No relevant prior studies available. FINDINGS: Lungs: Unremarkable. No consolidation. Pleural spaces: Unremarkable. No pleural effusion. No pneumothorax. Heart/Mediastinum: Unremarkable. No cardiomegaly. Bones/joints: Unremarkable. XR/XR chest 1V portable [id number] IMPRESSION: No acute findings.
[2021-06-02] MEDS: ziprasidone hcl 40 mg Capsule PO (21:21)
[2021-06-02] MEDS: trazodone 50 mg Tablet PO (21:21)
[2021-06-02] MEDS: hyDROXYzine 25 mg Capsule 50 MG PO (21:21)
--- NOTE | 2021-06-02 21:25 | PC.NURSE ---
trazodone and Vistaril given for sleep and anxiety.
--- NOTE | 2021-06-02 21:30 | PM.CONSULT ---
Providers/Reason For Consult Consulting Physician/Specialty*: Leonarda Henderson MD / Hospitalist Reason for Consult*: COVID 19 + Attending Physician: Xavi Hill MD History of Present Illness History of Present Illness Chuy Valenzuela is a 30 year old male admitted to NPU for management of psychosis attributable to medication misuse. Also with h/o IVDU. Patient had fever to 100F, was tested with rapid Ag upon admission and returned positive. He feels he is asymptomatic though noted to be intermittently coughing. States this is chronic from smoking, not changed from baseline, minimal mucoid expectoration. No dyspnea, chest pain. NO GI symptoms. Review of Systems General: Reports: 10 or more systems reviewed and unremarkable except in HPI and below Const: Denies: fever(s), chills or body aches Eyes: Denies: change in vision, blurry vision or photophobia ENMT: Reports: hoarseness; Denies: throat pain, enlarged tonsils, odynophagia or nasal congestion Card: Denies: chest pain, palpitations, irregular heart rhythm, edema, swelling of feet/ankles, lightheadedness, pre-syncope, dyspnea on exertion or orthopnea Resp: Reports: non-productive cough; Denies: dyspnea, productive cough, wheezing, stridor, pain on inspiration, change in phlegm color, hemoptysis or chest congestion GI: Denies: abdominal pain, nausea, vomiting, hematemesis, coffee ground emesis, dysphagia, heartburn, diarrhea, constipation, GI cramping, change in stool character, hematochezia or melena : Denies: flank pain, dysuria, urinary frequency, urinary urgency, urinary hesitancy or hematuria Musc: Denies: neck pain, back pain, extremity pain, joint swelling, joint warmth or deformity Neuro: Denies: headache(s), numbness in extremities, weakness in extremities, sensory changes, difficulty walking, frequent falls, dizziness, vertigo, behavioral changes, Slurred speech present or seizure-like activity Psych: Denies: anxiety, depression, suicidal ideation or homicidal ideation Endo: Denies: polyuria, polydipsia, tired all the time, cold intolerance or hot flashes Harpreet/Lymph: Denies: easy bruising or easy bleeding Meds/Allergies Home Medications and Allergies Home Medications Medication Instructions Recorded Confirmed Last Taken Type No Known Home Medications 06/01/21 06/01/21 Unknown History Allergies Allergy/AdvReac Type Severity Reaction Status Date / Time No Known Allergies Allergy Verified 05/31/21 16:15 Current Medications Current Medications Generic Name Dose Route Start Last Admin Trade Name Freq PRN Reason Stop Dose Admin Diphenhydramine HCl 50 mg 05/31/21 18:36 06/01/21 14:46 Diphenhydramine 50 Mg/Ml Sdv 1ml IM 50 mg ONCE PRN Administration Severe Extrapyramidal Symptoms Haloperidol Lactate 5 mg 05/31/21 18:36 06/01/21 14:47 Haloperidol Inj 5 Mg/Ml Inj 1 Ml IM 5 mg Q4H PRN Administration Severe Aggression Hydroxyzine Pamoate 50 mg 05/31/21 18:36 06/02/21 21:21 Hydroxyzine 25 Mg Capsule PO 50 mg Q6H PRN Administration ANXIETY Lorazepam 2 mg 05/31/21 18:36 06/01/21 14:47 Lorazepam 2 Mg/Ml Inj 1 Ml IM 2 mg Q4H PRN Administration Severe Aggression Trazodone HCl 50 mg 05/31/21 18:36 06/02/21 21:21 Trazodone 50 Mg Tablet PO 50 mg BEDTIME PRN Administration SLEEP Ziprasidone 40 mg 06/01/21 21:00 06/02/21 21:21 Ziprasidone Hcl 40 Mg Capsule PO 40 mg 2100 MAHSA Administration PFSH Acute PFSH: Social History Smoking and tobacco status: current every day smoker cigarettes Quit status (tobacco): not considering quitting Second hand smoke exposure: Yes Smoking risk assessment/counseling performed?: Yes Alcohol intake: current Desire information about alcohol rehabilitation?: No Vitals/I&O/Wt Last Vital Signs Temp 100.6 F H 06/02/21 14:00 Pulse 122 H 06/02/21 14:00 Resp 17 06/02/21 14:00 BP 87/48 06/02/21 14:00 Pulse Ox 96 06/02/21 14:00 Physical Exam Narrative: EXAM NARRATIVE: GEN: Awake, alert and oriented, no acute distress CVS: S1S2 N RS: CTA B/L Abd: Soft, nt/nd , bs+ CLOTH GRADER: no focal neuro deficits A&P Assessment and plan (1) COVID-19: Mild symptoms currently. No evidence of pneumonia or pneumonitis on chest x-ray per my read, awaiting radiology read Saturating well on room air. Check CBC, CMP , CRP and D-dimer recommend supportive management with Tylenol, p.o. fluids, Advair inhaler, vitamin C and zinc No current indication for antibiotic use Does not meet criteria for use of monoclonal antibody Saturating 95-98% on RA. No indication for steroids or remdisivir at this time Monitor pulse oximetry Status: Acute (2) Drug-induced psychotic disorder with delusions: Management per psychiatry Status: Acute Additional A&P Information Rpt CBC to trend leukocytosis on recent labs HIV, hepatitis screen given h/o IVDU Consult Attestations Medical Necessity Statement: per admitting team note Coding Level of Care Code Acute Outreach Specialist for Carol[facility] Fwd Diagnoses COVID-19 U07.1 Drug-induced psychotic disorder with delusions F19.950
[2021-06-02 22:00] VITALS: BP 97/64; PULSE 113; RESP 18; TEMP 37.9; O2SAT 94
--- NOTE | 2021-06-02 22:14 | PM.NPN ---
Subjective NPU Subjective: Interval history: Patient was noted to have an elevated temp of 99.7 at 06 101 100.6 at 1400. Rapid Covid test was ordered and returned positive. Hospitalist consultation was requested and the patient had a chest x-ray which showed no evidence of pneumonia. There were no beds available on the Covid unit, so the patient was placed in his room, on isolation. Then was moved to the other wing, where the only other patient was a woman who had been exposed to a coworker who was Covid positive. The patient reported that he was breathing well, without shortness of breath or cough. He denies feeling feverish, or having chills, sweating, nausea, vomiting, diarrhea, changes in taste or smell, sore throat, body aches, sore throat, or runny nose. Initially, due to his paranoia, he felt that we had given him Covid and the injection he received to help him calm down. When the reality was explained to him, he seemed to accept it. He said that he was not bothered by the devil or demons as much today. No urge to harm himself or others. Good was calmer than before. He continues to refuse antipsychotic medications. Mental Status Exam MSE Comments: I met with the patient wearing an N95 mask, gown, and goggles. He was sitting up in bed comfortably, calm, and cooperative. Eye contact was fair No psychomotor agitation or retardation. Speech was at a regular rate and rhythm without pressure. He was alert and oriented to person and situation. Attention and concentration were fairly intact to exam. Memory was fair per interview Mood was suspicious. Affect was somewhat anxious. Thought process: Relatively linear and goal oriented. Thought content: He continues to have paranoid delusions, that the devil is tormenting him, that maggots are crawling out of his ears, etc. He has both auditory and visual hallucinations. He denies suicidal and homicidal ideation. Insight and judgment are limited. Vitals/I&O/Wt Last Vital Signs Temp 99.7 F H 06/03/21 03:13 Pulse 95 06/03/21 03:13 Resp 16 06/03/21 15:07 BP 94/55 06/03/21 03:13 Pulse Ox 95 06/03/21 03:13 Data NPU : 06/03/21 05:02 06/03/21 05:02 Micro: Microbiology 06/03/21 05:02 Blood Culture - Preliminary Blood NEGATIVE TO DATE 06/03/21 05:02 Blood Culture - Preliminary Blood NEGATIVE TO DATE Microbiology 06/03/21 05:02 Blood Blood Culture - Preliminary NEGATIVE TO DATE 06/03/21 05:02 Blood Blood Culture - Preliminary NEGATIVE TO DATE A&P Assessment and plan (1) COVID-19: Status: Acute (2) Drug-induced psychotic disorder with delusions: Status: Acute (3) Cannabis abuse: Status: Chronic (4) Benzodiazepine abuse: Status: Chronic Additional A&P Information 1. Patient refuses to take antipsychotic medication. He does not feel that he has a psychiatric issue. 2. Continue every 15 minute checks for safety. 3. Encourage individual, group and milieu therapies. 4. Encourage sober living treatment after discharge at the highest level of care to which he is willing to commit. 5. Address medical issues as below. Medical Issues: (1) COVID-19: Appreciate consult from Dr. Henderson. She says: Mild symptoms currently. No evidence of pneumonia or pneumonitis on chest x-ray per my read, awaiting radiology read Saturating well on room air. Check CBC, CMP , CRP and D-dimer recommend supportive management with Tylenol, p.o. fluids, Advair inhaler, vitamin C and zinc No current indication for antibiotic use Does not meet criteria for use of monoclonal antibody Saturating 95-98% on RA. No indication for steroids or remdisivir at this time Monitor pulse oximetry (2) Hepatitis C screening positive, recommend outpatient follow-up with Dr. Lind. LFTs within range. HIV screen pending, if returns positive please refer to infectious disease clinic as outpatient. Leukocytosis resolved on labs Involuntary Hold Information 96 Hour Hold: 96 Hour Involuntary Admission: Yes 96 Hour Hold Ending Date: 06/06/21 96 Hour Hold Ending Time: 15:15 Attestations NPU Medical Necessity Statement*: Inpatient hospitalization is medically necessary and the clinically appropriate intervention at this time. He is psychotic and dangerous to self and others. We will recommend and monitor medications and make changes as indicated. Likely length of stay 2 - 4 days. Coding Level of Care Code Acute Driller Operator for Meche Fwd Diagnoses COVID-19 U07.1 Drug-induced psychotic disorder with delusions F19.950 Cannabis abuse F12.10 Benzodiazepine abuse F13.10
--- NOTE | 2021-06-03 00:11 | PC.NURSE ---
Psychosis/COVID+ Pt is positive for Covid, he is coughing, mild fever noted. Pt moved to cooler room, has 1:1 sitter, and pt is being covered by Dr Freeman for medical needs. It was determined that he is not requiring oxygen, he is on contact/droplet precautions at this time. Pt oxygen levels are WNL. Denies pain, still has AH/VH, some paranoia. Believes that NPU gave him active Covid injections and put termites in his brain.
[2021-06-03 03:13] VITALS: BP 94/55; PULSE 95; RESP 17; TEMP 37.6; O2SAT 95
[2021-06-03 05:16] LABS: Basophils # 0.1 10^3/uL (0.0-0.1); Basophils % 0.6 %; Eosinophils % 0.1 %; Hematocrit 46.3 % (42.0-52.0); Hemoglobin 15.3 g/dL (11.7-16.6); Lymphocytes # 4.4 10^3/uL (0.8-4.8); Lymphocytes % 53.2 %; Mean Corpuscular Hemoglobin 29.2 pg (28.0-34.0); Mean Corpuscular Volume 88.4 fL (80-94); Mean Platelet Volume 12.5 fL (7.4-10.4); Monocytes # 1.1 10^3/uL (0.2-0.9); Monocytes % 12.8 %; Neutrophils # 2.76 10^3/uL (1.8-7.7); Neutrophils % 33.1 %; Nucleated Red Blood Cells % 0 %; Platelet Count 186 10^3/cmm (130-400); Red Blood Count 5.24 10^6/uL (4.1-5.3); Red Cell Distribution Width 13.3 % (12.1-15.1); White Blood Count 8.4 10^3/uL (4.0-10.0)
[2021-06-03 05:53] LABS: D Dimer <= 0.27 ug/mIFEU (0-0.59)
[2021-06-03 06:00] VITALS: RESP 16
[2021-06-03 06:05] LABS: C Reactive Protein 1.3 mg/L (0.0-4.9)
[2021-06-03 06:09] LABS: Procalcitonin 0.07 ng/mL (0-0.5)
[2021-06-03 06:17] LABS: Hepatitis A Antibody IgM Non-Reactive (Nonreactive); Hepatitis B Core AB, Total Non-Reactive (Nonreactive); Hepatitis B Surface AB 84.8 (11.5-1000); Hepatitis B Surface Antigen Non-Reactive (Nonreactive); Hepatitis C Virus Antibody Reactive (Nonreactive)
[2021-06-03 06:52] LABS: Alanine Aminotransferase 36 U/L (0-41); Albumin Level 4.1 g/dL (3.5-5.2); Alkaline Phosphatase 63 IU/L (40-130); Anion Gap 14.4 (5-19); Aspartate Amino Transferase 38 U/L (0-40); Blood Urea Nitrogen 10 mg/dL (6-20); Calcium 8.6 mg/dL (8.5-10.5); Carbon Dioxide 24 mmol/L (22-29); Chloride 100 mmol/L (98-107); Creatinine Clr Calc Pharmacy 151.2815; Globulin 2.7 g/dL (1.3-4.6); Glomerular Filtration Rate 133.3 mL/min (90-130); Glucose 100 mg/dL (65-115); Osmolality Calculated 277 mOsm/kg (285-295); Potassium 4.4 mmol/L (3.5-5.1); Sodium 134 mmol/L (136-145); Total Bilirubin 0.3 mg/dL (0.15-1.2); Total Protein 6.8 g/dL (6.6-8.7)
--- NOTE | 2021-06-03 08:59 | P.PN_ITS ---
Subjective Subjective: Interval history: Consult note reviewed. No acute interim events. Patient feels well, states cough is chronic from smoking. No dyspnea, chest pain, palpitations Medications: Reviewed: Yes Vitals/I&O/Wt Last Vital Signs Temp 99.7 F H 06/03/21 03:13 Pulse 95 06/03/21 03:13 Resp 16 06/03/21 06:00 BP 94/55 06/03/21 03:13 Pulse Ox 95 06/03/21 03:13 Physical Exam Narrative: EXAM NARRATIVE: General: No acute distress, AO x3 HEENT: PERRLA, pupils bilaterally equal and reactive Chest: Normal vesicular breath sounds, no added sounds, equal good air entry bilaterally CVS: S1-S2 regular, no murmurs, no tachycardia, no gallops, no rubs Abdomen: Soft, nontender, no organomegaly, bowel sounds present Neuro: No focal deficits, no facial deformity, AO x3, power 5/5 in all limbs Data : 06/03/21 05:02 06/03/21 05:02 Micro: Microbiology 06/03/21 05:02 Blood Culture - Preliminary Blood SPECIMEN COLLECTED 06/03/21 05:02 Blood Culture - Preliminary Blood SPECIMEN COLLECTED A&P Assessment and plan (1) COVID-19: Mild symptoms currently. No evidence of pneumonia or pneumonitis on chest x-ray Saturating well on room air. Inflammatory markers incl CRP and D-dimer normal. Recommend to continue supportive management with Tylenol, p.o. fluids, Advair inhaler, vitamin C and zinc No current indication for antibiotic use Does not meet criteria for use of monoclonal antibody Stable for discharge from medicine standpoint when cleared from psychiatry. Please call if oxygen saturation drops to less than 92% on RA or develops dyspnea. Will follow peripherally. Status: Acute (2) Drug-induced psychotic disorder with delusions: Management per psychiatry Status: Acute Additional A&P Information Hepatitis C screening positive, recommend outpatient follow-up with Dr. Lind. LFTs within range. HIV screen pending, if returns positive please refer to infectious disease clinic as outpatient. Leukocytosis resolved on labs Attestations Medical Necessity Statement*: per admitting team, stable for discharge from medicine standpoint. Coding Level of Care Code Acute Time Study Statistician for [facility] Fwd Diagnoses COVID-19 U07.1 Drug-induced psychotic disorder with delusions F19.950
[2021-06-03 14:49] LABS: HIV 1 & 2 Antibody Non-Reactive (Non-Reactiv); HIV 1 & 2 Antigen Non-Reactive (Non-Reactiv)
[2021-06-03 15:07] VITALS: RESP 16
--- NOTE | 2021-06-03 15:35 | P.DS_ITS ---
Diagnoses at Discharge Discharge Diagnosis (1) COVID-19: Status: Acute Permanent problem details: stable for discharge from medicine standpoint, per Dr Rose (2) Drug-induced psychotic disorder with delusions: Status: Acute Permanent problem details: He is at his baseline level of delusions, and has been able to function in the community at this level in the past. (3) Cannabis abuse: Status: Chronic Permanent problem details: Discouraged drug use and explained the relationship between marijuana use and psychosis. (4) Benzodiazepine abuse: Status: Chronic Permanent problem details: Discouraged drug use Reason for Visit Reason for Visit: WANTS ANXIETY MEDS Brief History: Chuy Valenzuela is a 30 year old male with a history of drug-induced psychotic disorder with delusions, who was been readmitted for definitive treatment of a similar pre sentation yesterday. The ED provider felt he was psychotic and a danger to himself, so he was admitted on a 96-hour hold. The note from the ED says: Patient is a 30-year-old male who presents to the ED today requesting codeine with promethazine and Xanax to treat evil spirits inside of him. He tells me that he feels inside and states the devil is torturing him.He tells me that he has evil spirits inside of him that are wanting to get out and kill people. He states he has termites eating his brain. Patient does not have logical answers to questions. 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 Patient becomes extremely agitated when told he will not be receiving codeine or Xanax. The patient reports that due to his anxiety and depression it has gotten to the point where I cannot do anything. He says, every night I leave my body and fight the devil. He torturous me in my sleep. He explains, there are 4 of me, for cells if you well. Every night I need to be eaten by a leviathan to control my anxiety. He completely believes that these events are happening. He says that the devil has killed his 2 daughters. He says he uses methamphetamine to give him strength to fight the devil. He anticipates my question and says, do not tell me that the meth is causing the voices and the devil. He then explains how methamphetamine is helpful in fighting the devil. He also says he has made 5 or 6 suicide attempts because of his hopelessness and depression. The last time was 1-1/2 years ago, when he tried to hang himself. He has been taking no medications for his psychosis. He has been on this unit for similar symptoms several times before. Each time he has asked for benzodiazepines, saying they are the only thing that will help him. He says he injects methamphetamine about once a week. He says, I love smoking marijuana. He last used yesterday. He denies significant alcohol use. He says he smokes about 1/2 pack of cigarettes per day. I discussed using antipsychotic medication to treat the patient's psychosis. He says that the only thing that will help him is benzodiazepines asks for Xanax. When I told him I am not willing to prescribe benzodiazepines for his current condition, he became highly agitated, yelling, and threatening. A show of support was called in order to contain his agitation. Hospital Course Hospital Course The patient presented to the emergency department requesting anxiety medications, exhibiting delusions, and getting violent when benzodiazepines were refused. He was admitted to psychiatry on a 96-hour hold. On the unit, he mostly remained in his room. He continued to exhibit delusions, but the pressure for him to respond to the delusions decreased to the point where he was able to keep himself from acting on any of his worrisome thoughts. Antipsychotic medications were offered, and he was encouraged to accept them, but he continued to refuse antipsychotic medication because he did not feel he needed them. We had several conversations with him about the relationship between drug use and psychosis, but he rejected these perspectives. On 06/02/2021, the patient developed a fever and was tested for COVID-19, and those tests were positive. Internal medicine was consulted and they felt that he was medically stable and needed no treatment beyond zinc and vitamin C. Chest x-ray showed no pneumonia or pneumonitis. His white count was 17,000 at admission but it dropped into a normal range by the time of discharge. He never had any symptoms of COVID-19. On 06/03/2021, the patient said that he would like to leave. He says that he has an apartment he can stay and and he knows that he needs to quarantine for at least another 10 days. He knows to return to the hospital if Covid symptoms appear. We also reviewed his hepatitis C titer, which was positive. He said he is aware that he has hepatitis C, and knows that he got it from injecting drugs. He plans to follow-up with his PCP to discuss treatment options. At the time of discharge, the patient reported that his mood was good and he denied suicidal and homicidal ideation. He continues to have paranoid delusions, but they are at his baseline level. He feels that he can refrain from acting on these worries. He did not plan to use drugs of abuse, and knows that it is especially important not to use substances for another 14 days, until he is recovered from Covid. Patient was evaluated and deemed to be absent credible lethality, and had achieved the maximum benefit from an inpatient hospitalization. He no longer felt compelled to act on his paranoid delusions. In addition, he felt he would be more comfortable at home, given his status as being Covid positive. He agreed that he would follow-up with his providers. Involuntary Hold Information 96 Hour Hold: 96 Hour Involuntary Admission: Yes 96 Hour Hold Ending Date: 06/06/21 96 Hour Hold Ending Time: 15:15 Mental Status Exam MSE Comments: I wore an N95 mask, gown, gloves, and goggles to meet with the patient in his room. He was calm, friendly and cooperative. He also apologized for yelling at myself and the staff the other day. He seemed truly remorseful for the commotion he caused. No psychomotor agitation or retardation. Speech was at a regular rate and rhythm, without pressure He was alert and oriented to person and situation. Attention and concentration were intact to exam. Memory was adequate for the purposes of the interview. Mood is euthymic. Affect is pleasant. Thought process: Logical and goal-directed. Thought content: He continues to have paranoid delusions. He says that he continues to feel that the devil is talking to him, but he does not feel this will go away. He says he knows how to handle it. He continues to hear and see the devil. No suicidal or homicidal ideation. Insight and judgment are improved. He understands that he has Covid, and knows that he needs to quarantine, says that he has an apartment and he will stay home for the next 10 or more days. Discharge Data Data Completed and Pending: Completed Studies During Hospitalization Category Date Time Status XR chest 1V meggan ble 23718 Urgent Exams 06/02/21 20:18 Completed Pending at discharge Category Date Time Status Blood Culture AM LABS Lab 06/03/21 05:02 Results Labs from last 24 hours 06/03/21 05:02 HIV 1&2 Ab & HIV 1 Ag Non-reactive HIV 1&2 Antibody Non-reactive Vitals: Last Vital Signs Temp 99.7 F H 06/03/21 03:13 Pulse 95 06/03/21 03:13 Resp 16 06/03/21 15:07 BP 94/55 06/03/21 03:13 Pulse Ox 95 06/03/21 03:13 Discharge Plan Discharge Patient Disposition: Home Condition: Stable Prescriptions: New Vitamin C 500 mg Tablet 500 mg PO BID 30 Days Qty: 60 RF: 0 zinc gluconate 50 mg Tablet 50 mg PO DAILY 30 Days Qty: 30 RF: 0 Discharge Orders: Discharge Order (Routine); Ordered 06/03/21 Ordered By: Xavi Hill Referrals: [facility] [Outside] Chris Schmid DO [Physician] - 06/08/21 1:00 am (Please arrive 15-30 minutes early to fill out paperwork. ) Discharge Diet: Regular Discharge Activity: Limit activity as instructed Patient Instructions: Opioid Safety Discharge Attestations NPU Time Spent in Discharge Care*: greater than 30 min Specific Discharge Activities: Specific discharge activities: educating patient, discussing with pcp/other providers, discussing with case specialist/social workers/dc planners and evaluating patient/reviewing data Status at Discharge: Cognitive status at discharge: cognitively intact , Behavioral status at discharge: cooperative , Functional status at discharge: independent ambulation Overall status at discharge: patient is back to baseline Coding Level of Care Code Acute Chg FW DC note Diagnoses COVID-19 U07.1 Drug-induced psychotic disorder with delusions F19.950 Cannabis abuse F12.10 Benzodiazepine abuse F13.10
== END 2021-06-03 15:50 | disposition home or self-care (01) | DRG 896 ==
LOC: ER 16:57 → NP 20:34
PROVIDERS: Student in an Organized Health Care Education/Training Program; Admitting Provider Psychiatry & Neurology Psychiatry; Emergency Provider Physician Assistant; Visit Provider Psychiatry & Neurology Child & Adolescent Psychiatry
DX: F19.950 Other psychoactive substance use, unspecified with psychoactive substance-induced psychotic disorder with delusions (principal); U07.1 COVID-19; F15.90 Other stimulant use, unspecified, uncomplicated; F12.10 Cannabis abuse, uncomplicated; F41.8 Other specified anxiety disorders; F17.210 Nicotine dependence, cigarettes, uncomplicated; Z81.8 Family history of other mental and behavioral disorders; F13.10 Sedative, hypnotic or anxiolytic abuse, uncomplicated; B19.20 Unspecified viral hepatitis C without hepatic coma
CPT/HCPCS: 36415; 71045; 80053; 80306; 80307; 84145; 85025; 85378; 86140; 86705; 86706; 86709; 86803; 87040; 87340; 87426; 87806; 96372; 99285; J1200; J1630; J2060

== ENCOUNTER 2021-06-06 08:42 | Emergency (ER) | payer SELFPAY ==
[2021-06-06 08:52] VITALS: BP 107/73; PULSE 90; RESP 18; TEMP 36.9; O2SAT 98; BMI 26.6
--- NOTE | 2021-06-06 09:33 | ED_ITS ---
HPI - Psych General: Chief Complaint: Psychiatric Symptoms Stated Complaint: Anxiety Time Seen by Provider: 06/06/21 09:10 History of Present Illness: HPI Narrative: 30-year-old male presents emergency room with acute psychosis. He had drug-induced psychosis in the past and was just recently discharged from psychiatry unit. He states he has been tortured by the devil for the last 5 years presents other psychotic symptoms. States he has a nasty termites inside of his body describes distortions and sign his head and his head being eaten up and he cannot feel it. He states all of this consult simply by being prescribed 4 mg of Xanax every day and promethazine with codeine. He was given prescriptions at the time of discharge from psychiatry unit but he was not given these and feels if he had these the issues would be resolved. He is rather angry and confrontational about having these medications prescribed to him immediately. He has a history of methamphetamine marijuana and benzodiazepine abuse. MD complaint: other (Acute psychosis) Onset (ago): unknown History of same: Yes Relieving factors: other (Abstinence from substance abuse) Exacerbating factors: drug use Associated symptoms: Reports delusions and racing thoughts; Deny auditory hallucinations, visual hallucinations, homicidal ideation or suicidal ideation Treatments prior to arrival: other (Recent hospitalization neuropsychiatry at this facility) Review of Systems Const: Denies: fever(s), chills, body aches, change in appetite, fatigue or malaise ENMT: Denies: throat pain, ear or mastoid pain, nasal discharge or nasal congestion Card: Denies: chest pain, edema, dyspnea on exertion or orthopnea Resp: Denies: dyspnea, productive cough or non-productive cough GI: Denies: abdominal pain, nausea, vomiting, hematemesis, coffee ground emesis, diarrhea, constipation, bloating, hematochezia or melena : Denies: flank pain, dysuria, urinary frequency or urinary urgency Skin/Breast: Denies: rash or pruritus Psych: Denies: visual hallucinations, auditory hallucinations, suicidal ideation or homicidal ideation PFS ED PFSH: Social History Smoking and tobacco status: current every day smoker cigarettes Quit status (tobacco): not considering quitting Second hand smoke exposure: Yes Smoking risk assessment/counseling performed?: Yes Alcohol intake: current Desire information about alcohol rehabilitation?: No Physical Exam Const: COMMON NORMALS: no acute distress ORIENTATION/CONSCIOUSNESS: Yes awake, Yes oriented to person, Yes oriented to place and Yes oriented to time HENMT: COMMON NORMALS: normocephalic, atraumatic and hearing grossly normal bilaterally HEAD & SCALP: normocephalic and atraumatic Eye: COMMON NORMALS: Equal, round and reactive pupils present PUPIL: Yes Equal, round and reactive pupils present Neck/C-Spine: COMMON NORMALS: no JVD Resp: COMMON NORMALS: normal respiratory effort, No retractions, No use of accessory muscles and clear to auscultation bilaterally AUSCULTATION: clear to auscultation bilaterally Cardio: COMMON NORMALS: no JVD, regular rate, regular rhythm and No murmurs present (Cardio) RATE: regular rate RHYTHM: regular rhythm GI: COMMON NORMALS: Soft to palpation and No hepatosplenomegaly present AU SCULTATION: Yes normoactive bowel sounds PALPATION: Yes Soft to palpation, No Tenderness to palpation present (GI), No Guarding due to palpation present (GI) and Yes No hepatosplenomegaly present Extremity: COMMON NORMALS: normal to inspection, capillary refill normal, no clubbing, cyanosis or edema, no calf tenderness and no pedal edema Neuro: SENSORIUM/ORIENTATION: Yes oriented to person, Yes oriented to place and Yes oriented to time Psych: THOUGHT CONTENT: Yes delusions Skin: COMMON NORMALS: no rashes or lesions noted GENERAL SKIN EXAM: no rashes or lesions noted Course Vital Signs: Vital signs: Vital Signs Temperature 98.5 F 06/06/21 08:52 Pulse Rate 90 06/06/21 08:52 Respiratory Rate 18 06/06/21 08:52 Blood Pressure 107/73 06/06/21 08:52 Pulse Oximetry 98 06/06/21 08:52 MDM - Psych MDM Narrative: Medical decision making narrative: Dietary is consulted. Patient seen by Dr. Hill in the exam room. Patient was informed that he would be treated with Seroquel or another similar antipsychotic and not with Xanax and promethazine and codeine. Patient left AMA as Dr. Hill was seeing him. He is welcome to return at any time. Dr. Hill did not feel he needed to be admitted at this point. Lab Data: Labs: Lab Results 06/06/21 06/06/21 Range/Units 09:50 09:50 WBC 9.0 (4.0-10.0) 10^3/ uL RBC 5.36 H (4.1-5.3) 10^6/u L Hgb 15.5 (11.7-16.6) g/dL Hct 46.0 (42.0-52.0) % MCV 85.8 (80-94) fL MCH 28.9 (28.0-34.0) pg MCHC 33.7 (30.0-36.0) g/dL RDW 13.1 (12.1-15.1) % Plt Count 212 (130-400) 10^3/c mm MPV 12.4 H (7.4-10.4) fL Neut % (Auto) 39.5 % Lymph % (Auto) 50.4 % [place] % (Auto) 9.5 % Eos % (Auto) 0.1 % Baso % (Auto) 0.4 % Neut # (Auto) 3.56 (1.8-7.7) 10^3/u L Lymph # (Auto) 4.6 (0.8-4.8) 10^3/u L [place] # (Auto) 0.9 (0.2-0.9) 10^3/u L Eos # (Auto) 0.0 (0.0-0.8) 10^3/u L Baso # (Auto) 0.0 (0.0-0.1) 10^3/u L Nucleated RBC % (a uto) 0 % Nucleated RBCs # 0.0 /100WBC Sodium 135 L (136-145) mmol/L Potassium 4.1 (3.5-5.1) mmol/L Chloride 101 (98-107) mmol/L Carbon Dioxide 24 (22-29) mmol/L Anion Gap 14.1 (5-19) BUN 9 (6-20) mg/dL Creatinine 0.6 L (0.7-1.2) mg/dL GFR Calculation 159.3 H (90-130) mL/min Glucose 86 (65-115) mg/dL Calculated Osmolal ity 278 L (285-295) mOsm/k g Calcium 8.7 (8.5-10.5) mg/dL Total Bilirubin 0.5 (0.15-1.2) mg/dL AST 26 (0-40) U/L ALT 29 (0-41) U/L Alkaline Phosphata se 77 (40-130) IU/L Total Protein 7.1 (6.6-8.7) g/dL Albumin 4.4 (3.5-5.2) g/dL Globulin 2.7 (1.3-4.6) g/dL Salicylates < 0.3 L (3-10) mg/dL Acetaminophen < 5.0 L (10-30) ug/mL Discharge Plan Discharge Patient Disposition: Left Against Medical Advice Clinical Impression: Drug-induced psychotic disorder with delusions Prescriptions: No Action No Known Home Medications RF: 0 Coding Level of Care Code ED Supervisor Sanding for Meche Fwd Exam Comprehensive
--- NOTE | 2021-06-06 09:47 | P.CONIM_ITS ---
Providers/Reason for Consult Consulting Physican/Specialty*: Xavi Hill MD, psychiatry Reason for Consult*: Hallucinations, anxiety, patient requests benzodiazepines Psych Consult HPI History of Present Illness Chuy Valenzuela is a 30 year old male with a history of methamphetamine induced psychosis, and requests for Xanax. The ED note states: 30-year-old male presents emergency room with acute psychosis. He had drug- induced psychosis in the past and was just recently discharged from psychiatry unit. He states he has been tortured by the devil for the last 5 years presents other psychotic symptoms. States he has a nasty termites inside of his body describes distortions and sign his head and his head being eaten up and he cannot feel it. He states all of this consult simply by being prescribed 4 mg of Xanax every day and promethazine with codeine. He was given prescriptions at the time of discharge from psychiatry unit but he was not given these and feels if he had these the issues would be resolved. He is rather angry and confrontational about having these medications prescribed to him immediately. He has a history of methamphetamine marijuana and benzodiazepine abuse. This is a patient who is well-known to me, as he was discharged a few days ago from the neuropsychiatric unit, where he was under my care. He has had a number of previous psychiatric presentations and hospitalizations for similar presentations. He tells me that he has been tortured by the devil and the only thing that will help him is Xanax and codeine. I calmly and clearly explained to him that we were not going to treat his condition with those medications. We would be happy to treat him with other medications, such as Seroquel. He says that the only thing that helps him is Xanax. After he understood that we would not provide him with the medication that he requested, he said he was going to leave and walked out of the ED. PFSH NPU PFSH: Social History Smoking and tobacco status: current every day smoker cigarettes Quit status (tobacco): not considering quitting Second hand smoke exposure: Yes Smoking risk assessment/counseling performed?: Yes Alcohol intake: current Desire information about alcohol rehabilitation?: No Mental Status Exam MSE Comments: The patient is mildly agitated, uncooperative, and focused on obtaining benzodiazepines. He makes poor eye contact. He has psychomotor agitation. He is alert and oriented to person, place, and situation. Attention and concentration are poor. Memory is intact to the exam. Mood is anxious, and affect is mood congruent. Thought process is perseverative. Thought content: He describes auditory and visual hallucinations of the devil. He denies suicidal and homicidal ideations. He has delusions of persecution. Insight and judgment are impaired by his psychosis. He does not recognize that he is experiencing hallucinations, but rather feels that the devil is actually tormenting him. Vitals/I&O/Wt Last Vital Signs Temp 98.5 F 06/06/21 08:52 Pulse 90 06/06/21 08:52 Resp 18 06/06/21 08:52 BP 107/73 06/06/21 08:52 Pulse Ox 98 06/06/21 08:52 A&P Assessment and plan (1) Drug-induced psychotic disorder with delusions: Status: Acute (2) COVID-19: Status: Acute (3) Cannabis abuse: Status: Chronic (4) Benzodiazepine abuse: Status: Chronic Additional A&P Information This is a 30-year-old male with repeated episodes of methamphetamine induced psychosis and demand for Xanax. His psychosis has not led to harm to self or others. During previous hospitalizations, his psychosis has improved as he has had time without using meth. He has been unwilling to accept this is a assessment, and has continued to use methamphetamine after each discharge. The only time that he gets agitated and threatening is when he does not get Xanax. He does not meet criteria for psychiatric hospitalization. He does not need to be held against his will. Involuntary Hold Information 96 Hour Hold: 96 Hour Involuntary Admission: Yes 96 Hour Hold Ending Date: 06/06/21 96 Hour Hold Ending Time: 15:15 Attestations NPU Medical Necessity Statement*: N/A?medical necessity will be assessed by ED providers. Coding Level of Care Code Acute Head Of Physics for Meche Vásquez Diagnoses Drug-induced psychotic disorder with delusions F19.950 COVID-19 U07.1 Cannabis abuse F12.10 Benzodiazepine abuse F13.10
[2021-06-06 10:14] LABS: Basophils % 0.4 %; Eosinophils % 0.1 %; Hemoglobin 15.5 g/dL (11.7-16.6); Lymphocytes # 4.6 10^3/uL (0.8-4.8); Lymphocytes % 50.4 %; Mean Corpuscular HGB Conc 33.7 g/dL (30.0-36.0); Mean Corpuscular Hemoglobin 28.9 pg (28.0-34.0); Mean Corpuscular Volume 85.8 fL (80-94); Mean Platelet Volume 12.4 fL (7.4-10.4); Monocytes # 0.9 10^3/uL (0.2-0.9); Monocytes % 9.5 %; Neutrophils # 3.56 10^3/uL (1.8-7.7); Neutrophils % 39.5 %; Nucleated Red Blood Cells % 0 %; Platelet Count 212 10^3/cmm (130-400); Red Blood Count 5.36 10^6/uL (4.1-5.3); Red Cell Distribution Width 13.1 % (12.1-15.1)
[2021-06-06 10:31] LABS: Alanine Aminotransferase 29 U/L (0-41); Albumin Level 4.4 g/dL (3.5-5.2); Alkaline Phosphatase 77 IU/L (40-130); Anion Gap 14.1 (5-19); Aspartate Amino Transferase 26 U/L (0-40); Blood Urea Nitrogen 9 mg/dL (6-20); Calcium 8.7 mg/dL (8.5-10.5); Carbon Dioxide 24 mmol/L (22-29); Chloride 101 mmol/L (98-107); Globulin 2.7 g/dL (1.3-4.6); Glomerular Filtration Rate 159.3 mL/min (90-130); Glucose 86 mg/dL (65-115); Osmolality Calculated 278 mOsm/kg (285-295); Potassium 4.1 mmol/L (3.5-5.1); Sodium 135 mmol/L (136-145); Total Bilirubin 0.5 mg/dL (0.15-1.2); Total Protein 7.1 g/dL (6.6-8.7)
[2021-06-06 10:38] LABS: Acetaminophen < 5.0 ug/mL (10-30); Salicylate < 0.3 mg/dL (3-10)
== END 2021-06-06 11:16 | disposition left against medical advice (07) ==
PROVIDERS: Emergency Provider Family Medicine
DX: F19.959 Other psychoactive substance use, unspecified with psychoactive substance-induced psychotic disorder, unspecified (principal); Z53.21 Procedure and treatment not carried out due to patient leaving prior to being seen by health care provider; F17.210 Nicotine dependence, cigarettes, uncomplicated
CPT/HCPCS: 80053; 80307; 85025; 99282

== ENCOUNTER 2021-09-01 15:09 | Emergency (ER) | payer SELFPAY ==
[2021-09-01 15:28] VITALS: BP 125/85; PULSE 105; RESP 18; TEMP 36.4; O2SAT 96; BMI 28.1
[2021-09-01 15:31] VITALS: BP 129/68; PULSE 105; RESP 19; TEMP 36.6; O2SAT 95
--- NOTE | 2021-09-01 16:17 | ED_ITS ---
HPI - Anxiety General: Chief Complaint: Anxiety Stated Complaint: ANXIETY, DEPRESSION, WANTS NPU Time Seen by Provider: 09/01/21 15:53 History of Present Illness: HPI narrative: 31-year-old male presents emergency room complaining of anxiety. He previously was on Wellbutrin and Xanax Geodon hydroxyzine he has been off of these for several months. He comes in stating he wants to be admitted to the NPU. He initially just stated he wanted medications but he repeatedly denied suicidal homicidal ideation towards me and the nursing staff. After doing his history and brief exam discussed with him that we would start him on the Wellbutrin and get him set up for [facility]. He then told me he wanted to be admitted. I asked again if he was suicidal homicidal he said no he said that she is cold outside and he wants to be admitted to the hospital until the weather improves. He states he was recently kicked out of the correction he was in. Patient has a history of substance abuse he denies being on the influence. Is mildly tachycardic he denies any recent illness. Patient then asked what he would have to say in order to get himself admitted. Stated the patient we evaluate patient's based on the presenting complaint. Patient then asked if I say I am suicidal will you admit me. Advised the patient we would have a psychiatrist come and evaluate him. I asked him again immediately after that already suicidal and he said no. complaint: anxiety Onset (ago): unknown Severity: mild History of similar episodes: Yes Provoking factors: emotional stress Relieving factors: medication Exacerbating factors: nothing Associated symptoms: Deny anorexia, chest pain, chills, confusion, diaphoresis, fever(s), headache(s), malaise, nausea, palpitations, short of breath, syncope, vomiting or weakness Review of Systems Const: Denies: fever(s), chills, malaise or diaphoresis ENMT: Denies: throat pain, ear or mastoid pain, nasal discharge or nasal congestion Card: Denies: chest pain, palpitations or syncope Resp: Denies: dyspnea, productive cough or non-productive cough GI: Denies: nausea or vomiting : Denies: flank pain, dysuria, urinary frequency or urinary urgency Skin/Breast: Denies: rash or pruritus Neuro: Denies: headache(s) or confusion PFSH ED PFSH: Medical History Methamphetamine abuse Psychiatric care Substance induced mood disorder Social History Smoking and tobacco status: current every day smoker cigarettes Quit status (tobacco): not considering quitting Second hand smoke exposure: Yes Smoking risk assessment/counseling performed?: Yes Alcohol intake: current Desire information about alcohol rehabilitation?: No Physical Exam Const: COMMON NORMALS: no acute distress GENERAL APPEARANCE: cooperative and comfortable ORIENTATION/CONSCIOUSNESS: Yes awake, Yes oriented to person, Yes oriented to place and Yes oriented to time HENMT: COMMON NORMALS: normocephalic, atraumatic and hearing grossly normal bilaterally HEAD & SCALP: normocephalic and atraumatic Neck/C-Spine: COMMON NORMALS: no JVD Resp: COMMON NORMALS: normal respiratory effort, No retractions, No use of accessory muscles and clear to auscultation bilaterally AUSCULTATION: clear to auscultation bilaterally Cardio: COMMON NORMALS: no JVD, regular rate, regular rhythm and No murmurs present (Cardio) RATE: regular rate RHYTHM: regular rhythm GI: COMMON NORMALS: Soft to palpation and No hepatosplenomegaly present AUSCULTATION: Yes normoactive bowel sounds PALPATION: Yes Soft to palpation, No Tenderness to palpation present (GI), No Guarding due to palpation present (GI) and Yes No hepatosplenomegaly present Extremity: COMMON NORMALS: normal to inspection, capillary refill normal, no clubbing, cyanosis or edema, no calf tenderness and no pedal edema Neuro: SENSORIUM/ORIENTATION: Yes oriented to person, Yes oriented to place and Yes oriented to time Skin: COMMON NORMALS: no rashes or lesions noted GENERAL SKIN EXAM: no rashes or lesions noted Course Vital Signs: Vital signs: Vital Signs Temperature 97.8 F 09/01/21 15:31 Pulse Rate 105 H 09/01/21 15:31 Respiratory Rate 19 H 09/01/21 15:31 Blood Pressure 129/68 09/01/21 15:31 Pulse Oximetry 95 09/01/21 15:31 MDM - Anxiety MDM Narrative: Medical decision making narrative: We did give the patient something to eat and something to drink. We also gave him contact information f or various shelters. At this point there is no indication for hospitalization and MPU. Unfortunately because of his history of substance abuse and past experiences in several of the shelters locally I do not think he will be able to be allowed to stay in any of them. We will start him on Wellbutrin and try to get him set up for behavioral health. Discharge Plan Discharge Patient Disposition: Home Clinical Impression: Acute anxiety, Substance induced mood disorder, Methamphetamine abuse, Benzodiazepine abuse, Cannabis abuse Condition: Stable Prescriptions: New Wellbutrin SR 150 mg tablet sustained-release 12 hr 150 mg PO BID Qty: 60 RF: 0 Discharge Orders: Discharge ED (Routine); Ordered 09/01/21 Ordered By: Osman Blanca Discharge Diet: Usual diet Patient Instructions: Opioid Safety Activity Restrictions/Additional Instructions: Case management will make arrangements for an evaluation at behavioral health clinic for you. Coding Level of Care Code ED Electrical Prospecting Supervisor for Meche Vásquez
== END 2021-09-01 16:59 | disposition home or self-care (01) ==
PROVIDERS: Emergency Provider Family Medicine
DX: F41.9 Anxiety disorder, unspecified (principal); F15.14 Other stimulant abuse with stimulant-induced mood disorder; F19.14 Other psychoactive substance abuse with psychoactive substance-induced mood disorder; F17.210 Nicotine dependence, cigarettes, uncomplicated
CPT/HCPCS: 99282

== ENCOUNTER 2023-03-02 14:20 | Emergency (ER) | payer SELFPAY ==
[2023-03-02 14:22] VITALS: BP 133/82; PULSE 88; RESP 15; O2SAT 96
[2023-03-02 14:56] VITALS: BP 123/85; PULSE 97; RESP 16; O2SAT 96
--- NOTE | 2023-03-02 15:27 | ED.C_ITS ---
HPI - Psych General: Chief Complaint: Psychiatric Symptoms Stated Complaint: PSYCH EVAL Time Seen by Provider: 03/02/23 14:28 History of Present Illness: Patient comes in with fatigue. States that he used meth a couple of days ago and always has trouble coming down off the meth. States that he is frustrated by his life decisions and came in today because his mom thought he had a come get checked out. He denies suicidal, or homicidal ideation. States he did drink some alcohol prior to arrival. Patient is very sleepy on exam but awakens easily to voice and follows commands and answers questions. Review of Systems Const: Denies: fever(s) or body aches Eyes: Denies: change in vision or blurry vision ENMT: Denies: throat pain or odynophagia Card: Denies: chest pain or palpitations Resp: Denies: dyspnea or productive cough GI: Denies: abdominal pain, nausea or vomiting : Denies: flank pain or dysuria Musc: Denies: neck pain or back pain Skin/Breast: Denies: rash or pruritus Neuro: Denies: headache(s) or numbness in extremities PFSH ED PFSH: Medical History (Updated 07/20/22 @ 09:24 by Ashlee Cohen) Methamphetamine abuse Substance induced mood disorder Social History Smoking and tobacco status: current every day smoker cigarettes Quit status (tobacco): not considering quitting Second hand smoke exposure: Yes Smoking risk assessment/counseling performed?: Yes Alcohol intake: current Desire information about alcohol rehabilitation?: No Physical Exam Const: COMMON NORMALS: no acute distress, patient oriented x3 and healthy appearing HENMT: COMMON NORMALS: normocephalic and atraumatic HEAD & SCALP: normo cephalic and atraumatic Eye: COMMON NORMALS: Equal, round and reactive pupils present and EOMs intact bilaterally PUPIL: Yes Equal, round and reactive pupils present Neck/C-Spine: COMMON NORMALS: full ROM and supple Resp: COMMON NORMALS: normal respiratory effort, No retractions and No use of accessory muscles Cardio: COMMON NORMALS: regular rate and regular rhythm RATE: regular rate RHYTHM: regular rhythm GI: COMMON NORMALS: Normal to inspection, nondistended, normoactive bowel sounds present, Soft to palpation and non-tender PALPATION: Yes Soft to palpation Extremity: COMMON NORMALS: normal to inspection and full ROM Neuro: COMMON NORMALS: patient oriented x3 Psych: COMMON NORMALS: mental status grossly normal and cooperative Skin: COMMON NORMALS: no rashes or lesions noted and no wounds GENERAL SKIN EXAM: no rashes or lesions noted Course Vital Signs: Vital signs: Vital Signs Pulse Rate 97 03/02/23 14:56 Respiratory Rate 16 03/02/23 14:56 Blood Pressure 123/85 03/02/23 14:56 Pulse Oximetry 96 03/02/23 14:56 Oxygen Delivery Me thod Room Air 03/02/23 14:56 MDM - Psych Medical Decision Making Patient comes in with fatigue. States that he used meth a couple of days ago and always has trouble coming down off the meth. States that he is frustrated by his life decisions and came in today because his mom thought he had a come g et checked out. He denies suicidal, or homicidal ideation. States he did drink some alcohol prior to arrival. Patient is very sleepy on exam but awakens easily to voice and follows commands and answers questions. Will check labs, and reassess. On reassessment I talked to the patient about the test results. He continues to deny any suicidal or homicidal ideation. Will DC home at this time with precautions to return for worsening or changing symptoms. Will provide him with information to follow-up with the crisis center. Lab Data 03/02/23 15:26 03/02/23 15:26 Laboratory Results WBC 11.1 10^3/uL (4.0-10.0) H 03/02/23 15: RBC 4.78 10^6/uL (4.1-5.3) 03/02/23 15: Hgb 13.8 g/dL (11.7-16.6) 03/02/23 15: Hct 41.9 % (42.0-52.0) L 03/02/23 15: MCV 87.7 fl (80-94) 03/02/23 15: MCH 28.9 pg (28.0-34.0) 03/02/23 15: MCHC 32.9 g/dL (30.0-36.0) 03/02/23 15: RDW 14.5 % (12.1-15.1) 03/02/23 15:26 Plt Count 273 10^3/cmm (130-400) 03/02/23 15: MPV 11.0 fL (7.4-10.4) H 03/02/23 15: Neut % (Auto) 36.5 % 03/02/23 15: Lymph % (Auto) 54.9 % 03/02/23 15: Prentiss % (Auto) 7.3 % 03/02/23 15: Eos % (Auto) 0.5 % 03/02/23 15: Baso % (Auto) 0.5 % 03/02/23 15: Neut # (Auto) 4.05 10^3/uL (1.8-7.7) 03/02/23 15: Lymph # (Auto) 6.1 10^3/uL (0.8-4.8) H 03/02/23 15: Prentiss # (Auto) 0.8 10^3/uL (0.2-0.9) 03/02/23 15: Eos # (Auto) 0.1 10^3/uL (0.0-0.8) 03/02/23 15: Baso # (Auto) 0.1 10^3/uL (0.0-0.1) 03/02/23 15: Nucleated RBC % (auto) 0 % 03/02/23: Nucleated RBCs # 0.0 /100WBC 03/02/23 15:26 Sodium 139 mmol/L (136-145) 03/02/23 15: Potassium 3.8 mmol/L (3.5-5.1) 03/02/23 15: Chloride 102 mmol/L (98-107) 03/02/23 15: Carbon Dioxide 23 mmol/L (22-29) 03/02/23 15:26 Anion Gap 17.8 (5-19) 03/02/23 15:26 BUN 9 mg/dL (6-20) 03/02/23 15:26 Creatinine 0.6 mg/dL (0.7-1.2) L 03/02/23 15:26 GFR Calculation 157.1 mL/min (90-130) H 03/02/23 15:26 Glucose 71 mg/dL (65-115) 03/02/23 15:26 Calculated Osmolality 285 mOsm/kg (285-295) 03/02/23 15:26 Calcium 8.7 mg/dL (8.5-10.5) 03/02/23 15:26 Total Bilirubin 0.4 mg/dL (0.15-1.2) 03/02/23 15:26 AST 46 U/L (0-40) H 03/02/23 15:26 ALT 89 U/L (0-41) H 03/02/23 15:26 Alkaline Phosphatase 70 U/L (40-130) 03/02/23 15:26 Total Protein 7.5 g/dL (6.6-8.7) 03/02/23 15:26 Albumin 4.2 g/dL (3.5-5.2) 03/02/23 15:26 Globulin 3.3 g/dL (1.3-4.6) 03/02/23 15:26 Salicylates 0.7 mg/dL (3-10) L 03/02/23 15:26 Urine Opiates Screen Negative ng/mL (Negative) 03/02/23 15:43 Acetaminophen < 5.0 ug/mL (10-30) L 03/02/23 15:26 Ur Barbiturates Screen Negative ng/mL (Negative) 03/02/23 15:43 Ur Phencyclidine Scrn Negative ng/mL (Negative) 03/02/23 15:43 Ur Amphetamines Screen Negative ng/mL (Negative) 03/02/23 15:43 U Benzodiazepines Scrn Negative ng/mL (Negative) 03/02/23 15:43 Urine Cocaine Screen Negative ng/mL (Negative) 03/02/23 15:43 U Marijuana (THC) Screen Positive ng/mL (Negative) H 03/02/23 15:43 Ethyl Alcohol 39 mg/dL (0-10) H 03/02/23 15:26 Discharge Plan Discharge Patient Disposition: Home Clinical Impression: Marijuana use Condition: Stable Prescriptions: No Action No Known Home Medications Discharge Orders: Discharge ED (Routine); Ordered 03/02/23 Ordered By: Landon Alberts Patient Instructions: Marijuana Abuse, Methamphetamine Use Disorder (ED) Coding Level of Care Code ED Sheet Roller Operator for Meche Vásquez
[2023-03-02 15:37] LABS: Basophils # 0.1 10^3/uL (0.0-0.1); Basophils % 0.5 %; Eosinophils # 0.1 10^3/uL (0.0-0.8); Eosinophils % 0.5 %; Hematocrit 41.9 % (42.0-52.0); Hemoglobin 13.8 g/dL (11.7-16.6); Lymphocytes # 6.1 10^3/uL (0.8-4.8); Lymphocytes % 54.9 %; Mean Corpuscular HGB Conc 32.9 g/dL (30.0-36.0); Mean Corpuscular Hemoglobin 28.9 pg (28.0-34.0); Mean Corpuscular Volume 87.7 fl (80-94); Monocytes # 0.8 10^3/uL (0.2-0.9); Monocytes % 7.3 %; Neutrophils # 4.05 10^3/uL (1.8-7.7); Neutrophils % 36.5 %; Nucleated Red Blood Cells % 0 %; Platelet Count 273 10^3/cmm (130-400); Red Blood Count 4.78 10^6/uL (4.1-5.3); Red Cell Distribution Width 14.5 % (12.1-15.1); White Blood Count 11.1 10^3/uL (4.0-10.0)
[2023-03-02 15:54] LABS: Alanine Aminotransferase 89 U/L (0-41); Albumin Level 4.2 g/dL (3.5-5.2); Alcohol Level 39 mg/dL (0-10); Alkaline Phosphatase 70 U/L (40-130); Aspartate Amino Transferase 46 U/L (0-40); Blood Urea Nitrogen 9 mg/dL (6-20); Calcium 8.7 mg/dL (8.5-10.5); Carbon Dioxide 23 mmol/L (22-29); Chloride 102 mmol/L (98-107); Globulin 3.3 g/dL (1.3-4.6); Glomerular Filtration Rate 157.1 mL/min (90-130); Glucose 71 mg/dL (65-115); Osmolality Calculated 285 mOsm/kg (285-295); Salicylate 0.7 mg/dL (3-10); Sodium 139 mmol/L (136-145); Total Bilirubin 0.4 mg/dL (0.15-1.2); Total Protein 7.5 g/dL (6.6-8.7)
[2023-03-02 15:56] LABS: Acetaminophen < 5.0 ug/mL (10-30); Anion Gap 17.8 (5-19); Potassium 3.8 mmol/L (3.5-5.1)
[2023-03-02 16:00] LABS: Amphetamines Screen Urine Negative (Negative); Barbiturates Screen Urine Negative (Negative); Benzodiazepines Screen Urine Negative (Negative); Cocaine Screen Urine Negative (Negative); Opiate Screen Urine Negative (Negative); PCP Screen Urine Negative (Negative); THC Screen Urine Positive (Negative)
[2023-03-02 16:04] LABS: Slide Review Slide Review Perform
--- NOTE | 2023-03-06 13:23 | DCPLANNER ---
events manager was unable to contact patient due to no phone number listed in chart. Patient does not have a primary care physician.
== END 2023-03-02 18:23 | disposition home or self-care (01) ==
PROVIDERS: Emergency Provider Emergency Medicine
DX: F12.90 Cannabis use, unspecified, uncomplicated (principal); F17.210 Nicotine dependence, cigarettes, uncomplicated
CPT/HCPCS: 80053; 80306; 80307; 85025; 99283

== ENCOUNTER 2023-04-08 11:22 | Emergency (ER) | payer SELFPAY ==
[2023-04-08 11:24] VITALS: BP 108/62; PULSE 78; RESP 18; TEMP 36.8; O2SAT 99; BMI 25.0
--- NOTE | 2023-04-08 11:37 | ED_ITS ---
HPI - Medical Clearance General Chief complaint: Medical Clearance Stated complaint: ETOH Time Seen by Provider: 04/08/23 11:26 Source: police Mode of arrival: other (commanding officer motorized squad) Limitations: altered mental status History of Present Illness This 32-year-old male was brought in by law enforcement for fit for confinement . He allegedly stole some alcohol from a store and drank it all. On ER arrival, patient was brought in by wheelchair because he could not stand or walk. He had vomitus all over him. The police booking officer that brought him in noted that he vomited shortly before they arrived the ER. Patient is unable to answer any questions, appears very intoxicated and could not provide any useful history. Related Information Home Medications Medication Instructions Recorded Confirmed No Known Home Medications 03/02/23 03/02/23 Allergies Allergy/AdvReac Type Severity Reaction Status Date / Time No Known Allergies Allergy Verified 04/08/23 11:30 Course Vital Signs Temperature 98.3 F 04/08/23 11:24 Pulse Rate 78 04/08/23 11:24 Respiratory Rate 18 04/08/23 11:24 Blood Pressure 108/62 04/08/23 11:24 Pulse Oximetry 99 04/08/23 11:24 Oxygen Delivery Method Room Air 04/08/23 11:24 Discharge Plan Discharge Condition: Stable Prescriptions: No Action No Known Home Medications
[2023-04-08 11:54] LABS: Basophils # 0.1 10^3/uL (0.0-0.1); Basophils % 0.4 %; Eosinophils # 0.1 10^3/uL (0.0-0.8); Eosinophils % 0.6 %; Hematocrit 42.3 % (42.0-52.0); Hemoglobin 14.1 g/dL (11.7-16.6); Lymphocytes # 9.5 10^3/uL (0.8-4.8); Lymphocytes % 53.2 %; Mean Corpuscular HGB Conc 33.3 g/dL (30.0-36.0); Mean Corpuscular Hemoglobin 29.7 pg (28.0-34.0); Mean Corpuscular Volume 89.2 fl (80-94); Mean Platelet Volume 10.9 fL (7.4-10.4); Monocytes # 1.6 10^3/uL (0.2-0.9); Monocytes % 8.8 %; Neutrophils # 6.55 10^3/uL (1.8-7.7); Neutrophils % 36.7 %; Nucleated Red Blood Cells % 0 %; Platelet Count 292 10^3/cmm (130-400); Red Blood Count 4.74 10^6/uL (4.1-5.3); Red Cell Distribution Width 13.5 % (12.1-15.1); White Blood Count 17.9 10^3/uL (4.0-10.0)
[2023-04-08] MEDS: sodium chloride 0.9% 1,000 ML 999 ML IV (12:01)
[2023-04-08 12:12] LABS: Alanine Aminotransferase 29 U/L (0-41); Albumin Level 4.2 g/dL (3.5-5.2); Alkaline Phosphatase 62 U/L (40-130); Anion Gap 17.2 (5-19); Aspartate Amino Transferase 24 U/L (0-40); Blood Urea Nitrogen 20 mg/dL (6-20); Calcium 8.2 mg/dL (8.5-10.5); Carbon Dioxide 17 mmol/L (22-29); Chloride 105 mmol/L (98-107); Globulin 2.8 g/dL (1.3-4.6); Glomerular Filtration Rate 87.2 mL/min (90-130); Glucose 102 mg/dL (65-115); Osmolality Calculated 285 mOsm/kg (285-295); Potassium 3.2 mmol/L (3.5-5.1); Sodium 136 mmol/L (136-145); Total Bilirubin 0.6 mg/dL (0.15-1.2)
[2023-04-08 12:17] LABS: Alcohol Level 316 mg/dL (0-10)
--- NOTE | 2023-04-08 12:26 | ED_ITS ---
HPI - General Adult General: Chief complaint: Medical Clearance Stated complaint: ETOH Time Seen by Provider: 04/08/23 11:26 History of Present Illness: This 32-year-old male who is brought in by law enforcement for fit for confinement . He allegedly stole some alcohol from a store and drank it all. On arrival, patient was brought in by wheelchair because he could not stand or w alk. He had vomitus all over him. The state highway police officer that brought him in noted that he vomited shortly before they arrived the ER. Patient is unable to answer any questions, and appears very intoxicated and could not provide any useful history. Review of Systems General: Reports: ROS unobtainable due to medical condition PFSH ED PFSH: Medical History (Updated 04/08/23 @ 14:30 by Geneva Christopher MD) Methamphetamine abuse Substance induced mood disorder Social History Smoking and tobacco status: current every day smoker cigarettes Quit status (tobacco): not considering quitting Second hand smoke exposure: Yes Smoking risk assessment/counseling performed?: Yes Alcohol intake: current Desire information about alcohol rehabilitation?: No Physical Exam HENMT: COMMON NORMALS: normocephalic HEAD & SCALP: normocephalic Chest: COMMONS NORMALS: normal inspection of the chest Resp: COMMON NORMALS: normal respiratory effort, No retractions, No use of accessory muscles and clear to auscultation bilaterally AUSCULTATION: clear t o auscultation bilaterally Cardio: COMMON NORMALS: regular rate, regular rhythm and No murmurs present (Cardio) RATE: regular rate RHYTHM: regular rhythm GI: COMMON NORMALS: Normal to inspection, nondistended, normoactive bowel sounds present and non-tender Extremity: GENERAL: Yes normal exam except as noted Neuro: OTHER: Patient appears intoxicated, has slurred speech as a result but is seen to move all extremities with no observed weakness. A comprehensive neuro exam could not be done because of patient's intoxicated state. Psych: COMMON NORMALS: mental status grossly normal and cooperative Course Vital Signs: Vital signs: Vital Signs Temperature 98.3 F 04/08/23 11:24 Pulse Rate 126 H 04/08/23 13:30 Respiratory Rate 18 04/08/23 11:24 Blood Pressure 92/56 04/08/23 13:30 Pulse Oximetry 98 04/08/23 13:30 Oxygen Delivery Me thod Room Air 04/08/23 11:24 MDM - General Adult Medical Decision Making Medical decision makin hrs.: Called into patient's room because he was cussing and yelling at the officer that brought him in. On entering the room, patient's right hand was cuffed to the bed. He is alert at this time, verbally aggressive and oriented. Blood alcohol level is 316. I believe his initial presentation is due to alcohol intoxication. At this time, he is fit for confinement. Lab Data 04/08/23 11:50 04/08/23 11:50 Laboratory Results WBC 17.9 10^3/uL (4.0-10.0) H 04/08/23 11:50 RBC 4.74 10^6/uL (4.1-5.3) 04/08/23 11:50 Hgb 14.1 g/dL (11.7-16.6) 04/08/23 11:50 Hct 42.3 % (42.0-52.0) 04/08/23 11:50 MCV 89.2 fl (80-94) 04/08/23 11:50 MCH 29.7 pg (28.0-34.0) 04/08/23 11:50 MCHC 33.3 g/dL (30.0-36.0) 04/08/23 11:50 RDW 13.5 % (12.1-15.1) 04/08/23 11:50 Plt Count 292 10^3/cmm (130-400) 04/08/23 11:50 MPV 10.9 fL (7.4-10.4) H 04/08/23 11:50 Neut % (Auto) 36.7 % 04/08/23 11:50 Lymph % (Auto) 53.2 % 04/08/23 11:50 Snyder % (Auto) 8.8 % 04/08/23 11:50 Eos % (Auto) 0.6 % 04/08/23 11:50 Baso % (Auto) 0.4 % 04/08/23 11:50 Neut # (Auto) 6.55 10^3/uL (1.8-7.7) 04/08/23 11:50 Lymph # (Auto) 9.5 10^3/uL (0.8-4.8) H 04/08/23 11:50 Snyder # (Auto) 1.6 10^3/uL (0.2-0.9) H 04/08/23 11:50 Eos # (Auto) 0.1 10^3/uL (0.0-0.8) 04/08/23 11:50 Baso # (Auto) 0.1 10^3/uL (0.0-0.1) 04/08/23 11:50 Nucleated RBC % (auto) 0 % 04/08/23 11:50 Nucleated RBCs # 0.0 /100WBC 04/08/23 11:50 Sodium 136 mmol/L (136-145) 04/08/23 11:50 Potassium 3.2 mmol/L (3.5-5.1) L 04/08/23 11:50 Chloride 105 mmol/L (98-107) 04/08/23 11:50 Carbon Dioxide 17 mmol/L (22-29) L 04/08/23 11:50 Anion Gap 17.2 (5-19) 04/08/23 11:50 BUN 20 mg/dL (6-20) 04/08/23 11:50 Creatinine 1.0 mg/dL (0.7-1.2) 04/08/23 11:50 GFR Calculation 87.2 mL/min (90-130) L 04/08/23 11:50 Glucose 102 mg/dL (65-115) 04/08/23 11:50 Calculated Osmolality 285 mOsm/kg (285-295) 04/08/23 11:50 Calcium 8.2 mg/dL (8.5-10.5) L 04/08/23 11:50 Total Bilirubin 0.6 mg/dL (0.15-1.2) 04/08/23 11:50 AST 24 U/L (0-40) 04/08/23 11:50 ALT 29 U/L (0-41) 04/08/23 11:50 Alkaline Phosphatase 62 U/L (40-130) 04/08/23 11:50 Total Protein 7.0 g/dL (6.6-8.7) 04/08/23 11:50 Albumin 4.2 g/dL (3.5-5.2) 04/08/23 11:50 Globulin 2.8 g/dL (1.3-4.6) 04/08/23 11:50 Ethyl Alcohol 316 mg/dL (0-10) H* 04/08/23 11:50 Discharge Plan Discharge Patient Disposition: Home Clinical Impression: Alcohol intoxication Condition: Stable Prescriptions: No Action Unable to Assess Discharge Orders: Discharge ED (Routine); Ordered 04/08/23 Ordered By: Geneva Christopher Discharge Diet: Usual diet Discharge Activity: Resume usual activity Patient Instructions: Opioid Safety, Pain Management Activity Restrictions/Additional Instructions: Avoid excessive use of alcohol or any other illicit substances. It can kill you. Maintain adequate fluid intake. Follow-up with your primary care physician for reevaluation. Seek outpatient treatment for drug and alcohol abuse. Return with new or worsening concerns. Coding Level of Care Code ED Try On Baster for Meche Vásquez
[2023-04-08 13:30] VITALS: BP 92/56; PULSE 126; O2SAT 98
[2023-04-08] MEDS: potassium chloride ER 20 mEq Tablet 40 MEQ PO (14:12)
--- NOTE | 2023-04-11 15:27 | DCPLANNER ---
follow up manager called patient due to no primary care physician - no answer at this time.
== END 2023-04-08 14:37 | disposition home or self-care (01) ==
PROVIDERS: Emergency Provider Family Medicine
DX: F10.129 Alcohol abuse with intoxication, unspecified (principal); Y90.8 Blood alcohol level of 240 mg/100 ml or more
CPT/HCPCS: 80053; 80307; 85025; 96360; 96361; 99284; J7030

== ENCOUNTER 2023-04-12 12:06 | Emergency (ER) | payer SELFPAY ==
--- NOTE | 2023-04-12 12:08 | XR_ITS ---
WS: [id number] Left shoulder, 3 views, 04/12/2023 Clinical Data: left shoulder pain Comparison: None. Findings: No fractures or dislocations are seen. The AC joint is normal. The adjacent left clavicle, left scapu la and ribs are normal. The soft tissues are unremarkable. XR/XR shoulder LT min 2V* [id number] Impression: Negative left shoulder.
[2023-04-12 12:43] VITALS: BP 114/85; PULSE 71; RESP 16; TEMP 37.1; O2SAT 100
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
[2023-04-12] MEDS: ketorolac 60 mg/2 mL INJ IM (13:29)
[2023-04-12] MEDS: orphenadrine 30 mg/mL Inj 2 mL 60 MG IM (13:29)
--- NOTE | 2023-04-17 12:58 | DCPLANNER ---
implementation project manager was triggered to call patient due no primary care physician - not a good phone number in chart for patient.
== END 2023-04-12 13:31 | disposition home or self-care (01) ==
PROVIDERS: Emergency Provider Physician Assistant
DX: M25.512 Pain in left shoulder (principal)
CPT/HCPCS: 73030; 96372; 99284; J1885; J2360

== ENCOUNTER 2023-05-03 20:16 | Emergency (ER) | payer SELFPAY ==
[2023-05-03 20:19] VITALS: BP 100/61; PULSE 138; RESP 24; TEMP 37.7; O2SAT 95; BMI 24.3
--- NOTE | 2023-05-03 21:47 | XRR_ITS ---
PROCEDURE INFORMATION: Exam: XR Abdomen Exam date and time: 05/03/2023 10:12 PM Age: 32 years old Clinical indication: Screening exam; Other: Fb; Additional info: Questionable fb ingestion TECHNIQUE: Imaging protocol: Radiologic exam of the abdomen. Views: Frontal supine view of the abdomen. 1 View. COMPARISON: CR (CHEST, ) 05/03/2023 10:11 PM FINDINGS: Gastrointestinal tract: Normal. No bowel dilation. Bones/joints: Unremarkable. XR/XR KUB portable [id number] IMPRESSION: No acute findings. No ingested foreign body visualized.
--- NOTE | 2023-05-03 21:47 | XRR_ITS ---
PROCEDURE INFORMATION: Exam: XR Chest Exam date and time: 05/03/2023 10:11 PM Age: 32 years old Clinical indication: Screening exam; Other screening; Additional info: Questionable fb ingestion TECHNIQUE: Imaging protocol: Radiologic exam of the chest. Views: 1 view. COMPARISON: CR XR chest 1V portable [id number] 06/02/2021 8:29 PM FINDINGS: Lungs: Unremarkable. No consolidation. Pleural spaces: Unremarkable. No pleural effusion. No pneumothorax. Heart/Mediastinum: Unremarkable. No cardiomegaly. Bones/joints: Unremarkable. XR/XR chest 1V [id number] IMPRESSION: No acute findings. No visible foreign body.
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
== END 2023-05-03 22:26 | disposition left against medical advice (07) ==
PROVIDERS: Emergency Provider Emergency Medicine
DX: F19.10 Other psychoactive substance abuse, uncomplicated (principal); Z53.21 Procedure and treatment not carried out due to patient leaving prior to being seen by health care provider; F17.210 Nicotine dependence, cigarettes, uncomplicated
CPT/HCPCS: 71045; 74018; 99283

== ENCOUNTER 2024-04-15 12:53 | Emergency (ER) | payer MEDICAID, SELFPAY ==
--- NOTE | 2024-04-15 12:55 | XRR_ITS ---
PROCEDURE INFORMATION: Exam: XR Left Shoulder Exam date and time: 04/15/2024 2:39 PM Age: 33 years old Clinical indication: Injury or trauma; Fall; Blunt trauma (contusions or hematomas); Shoulder; Left TECHNIQUE: Imaging protocol: Radiologic exam of the left shoulder. Views: 2 or more views. COMPARISON: CR XR shoulder LT min 2V* [id number] 04/12/2023 12:13 PM FINDINGS: Bones/joints: No fracture or dislocation. No acute osseous or joint abnormality.. Soft tissues: Normal. XR/XR shoulder LT min 2V* [id number] IMPRESSION: No acute findings.
[2024-04-15 13:13] VITALS: BP 139/90; PULSE 114; RESP 18; TEMP 36.7; O2SAT 97
--- NOTE | 2024-04-15 14:28 | ED_ITS ---
HPI - Extremity Problem General: Chief complaint: Extremity Injury, Upper Stated complaint: left shoulder pain Time Seen by Provider: 04/15/24 14:09 History of Present Illness: 33-year-old male patient reports was [employer] football and landed on his left shoulder. Patient believes that he may have dislocated it. Patient appears nontoxic. Patient appears in mild to moderate pain. Patient vapes but does not use any other medication or drugs reported. Incident occurred just prior to arrival to ER. Review of Systems General: Reports: 10 or more systems reviewed and unremarkable except in HPI and below Musc: Reports: joint pain (Left shoulder) [facility] ED PFS: Medical History (Updated 04/15/24 @ 15:03 by ELSA Barahona) Psychiatric care No pertinent family history Methamphetamine abuse Substance induced mood disorder Social History Smoking and tobacco/nicotine status: current every day tobacco/nicotine user cigarettes Quit status (tobacco/nicotine): not considering quitting Second hand smoke exposure: Yes Alcohol intake: current Physical Exam Const: COMMON NORMALS: alert HENMT: COMMON NORMALS: normocephalic HEAD & SCALP: normocephalic Neck/C-Spine: COMMON NORMALS: full ROM Chest: COMMONS NORMALS: normal inspection of the chest Resp: COMMON NORMALS: normal respiratory effort Cardio: COMMON NORMALS: regular rate RATE: regular rate Back/Pelvis: COMMON NORMALS: thoracic and lumbar spine normal to inspection Extremity: LEFT UPPER EXTREMITY: Yes shoulder joint (No obvious dislocation. Posterior tenderness) Neuro: SENSORIUM/ORIENTATION: Yes alert Skin: COMMON NORMALS: turgor normal GENERAL SKIN EXAM: turgor normal Course Vital Signs: Vital signs: Vital Signs Temperature 98.0 F 04/15/24 13:13 Pulse Rate 114 H 04/15/24 13:13 Respiratory Rate 18 04/15/24 13:13 Blood Pressure 139/90 04/15/24 13:13 Pulse Oximetry 97 04/15/24 13:13 Oxygen Delivery Me thod Room Air 04/15/24 13:13 MDM - Extremity (Nontraumatic) Medical Decision Making 33-year-old male patient comes in today for complaints of injury to the left shoulder. On exam patient appears nontoxic. Patient appears in no acute distress. Respirations are even lungs are clear to auscultation. Skin is warm and dry. Differential diagnosis includes but not limited to dislocation, fracture, impingement syndrome, contusion. X-ray noted no fracture or dislocation. Reviewed exam with patient with recommendation for treatment and follow-up. Patient reported understanding and agreed to plan. XR interpretation done by ED provider, pending radiology final review Discharge Plan Discharge Patient Disposition: Home Clinical Impression: Sprain of left shoulder Qualifiers: Encounter type: initial encounter Shoulder sprain type: unspecified sprain Qualified Code(s): S43.402A - Unspecified sprain of left shoulder joint, initial encounter Condition: Stable Prescriptions: No Action ibuprofen 800 mg tablet 800 mg PO Q8H PRN (Reason: pain) Qty: 20 0RF Discharge Orders: Discharge ED (Routine); Ordered 04/15/24 Ordered By: Kelvin Britton Discharge Diet: Usual diet Discharge Activity: Increase activity as tolerated Coding Level of Care Code ED Service Department Manager for Meche Vásquez
== END 2024-04-15 15:05 | disposition home or self-care (01) ==
PROVIDERS: Emergency Provider Nurse Practitioner Family
DX: S43.402A Unspecified sprain of left shoulder joint, initial encounter (principal); F17.210 Nicotine dependence, cigarettes, uncomplicated; F17.290 Nicotine dependence, other tobacco product, uncomplicated; W19.XXXA Unspecified fall, initial encounter; Y93.61 Activity, american tackle football
CPT/HCPCS: 73030; 99283

== ENCOUNTER 2024-04-30 09:27 | Emergency (ER) | payer MEDICAID, SELFPAY ==
[2024-04-30 09:30] VITALS: BP 131/81; PULSE 79; RESP 18; TEMP 37; O2SAT 99; BMI 25.0
[2024-04-30 09:39] VITALS: BP 131/81; PULSE 79; RESP 18; TEMP 37; O2SAT 99
--- NOTE | 2024-04-30 09:48 | W.ED.EXTPRO ---
HPI - Extremity Problem General: Chief complaint: Extremity Injury, Upper Stated complaint: left shoulder pain Time Seen by Provider: 04/30/24 09:30 Source: patient Mode of arrival: ambulatory History of Present Illness: 33-year-old male presents emergency room for left shoulder pain. He states he has dislocated it before. He states he went to stretch and he felt like it dislocated. After arriving here he went to the bathroom and said he was able to reduce the dislocation. Denies any other injury or pain. Patient refuses x-rays. MD Complaint: joint pain Onset (ago): minute(s) Pain Consistency: constant Location: left (Shoulder) Quality: sharp Relieving factors: rest Exacerbating factors: range of motion and palpation Associated symptoms: Deny arthralgias, chest pain, fever(s), myalgias, rash or short of breath Review of Systems Const: Denies: fever(s) or chills Card: Denies: chest pain Resp: Denies: dyspnea GI: Denies: abdominal pain : Denies: dysuria, urinary frequency or urinary urgency Musc: Denies: neck pain or back pain Skin/Breast: Denies: rash PFS ED PFSH: Medical History Nicotine use disorder Psychiatric care No pertinent family history Methamphetamine abuse Substance induced mood disorder Social History Smoking and tobacco/nicotine status: current every day tobacco/nicotine user cigarettes Quit status (tobacco/nicotine): not considering quitting Second hand smoke exposure: Yes Alcohol intake: current Physical Exam Const: COMMON NORMALS: no acute distress GENERAL APPEARANCE: cooperative and comfortable ORIENTATION/CONSCIOUSNESS: Yes awake, Yes oriented to person, Yes oriented to place and Yes oriented to time HENMT: COMMON NORMALS: normocephalic, atraumatic and hearing grossly normal bilaterally HEAD & SCALP: normocephalic and atraumatic Extremity: COMMON NORMALS: normal to inspection, capillary refill normal and no clubbing, cyanosis or edema OTHER: Limited exam of the left shoulder as allowed by the patient no palpable abnormalities mild impingement sign neurovascularly the left arm is otherwise intact Neuro: SENSORIUM/ORIENTATION: Yes oriented to person, Yes oriented to place and Yes oriented to time Skin: COMMON NORMALS: no rashes or lesions noted GENERAL SKIN EXAM: no rashes or lesions noted Course Vital Signs: Vital signs: Vital Signs Temperature 98.6 F 04/30/24 09:39 Pulse Rate 79 04/30/24 09:39 Respiratory Rate 18 04/30/24 09:39 Blood Pressure 131/81 04/30/24 09:39 Pulse Oximetry 99 04/30/24 09:39 Oxygen Delivery Me thod Room Air 04/30/24 09:39 MDM - Extremity (Nontraumatic) Medical Decision Making Patient refuses x-ray states she has had them before and there is no abnormalities found. On physical exam his range of motion and palpation did not lend itself to having a dislocation he states it relocated just prior to seeing him when he was in the bathroom. Advised him since he refuses x-rays I cannot really tell him much about it states he has had this previously we offered him referral to orthopedic for further evaluation and possible advanced imaging if deemed appropriate he refuses. He also refused anti-inflammatories. He can return at any time if he wishes. Medical Records I reviewed the patient's medical records. All radiology interpretation(s) finalized by discharge Discharge Plan Discharge Patient Disposition: Home Clinical Impression: Left shoulder pain Condition: Stable Prescriptions: No Action ibuprofen 800 mg tablet 800 mg PO Q8H PRN (Reason: pain) Qty: 20 0RF Discharge Orders: Discharge ED (Routine); Ordered 04/30/24 Ordered By: Osman Blanca Discharge Diet: Usual diet Discharge Activity: Limit activity as instructed Patient Instructions: Opioid Safety, Pain Management Activity Restrictions/Additional Instructions: Thank you for choosing [facility] for your healthcare needs today. It is very important that you follow up as instructed or that you return to the Emergency Department should you have concerns or if your condition changes or worsens in any way. You were seen today for left shoulder pain. Your pain was difficult to evaluate in the emergency room you had declined x-rays. We offered a prescription for an anti-inflammatory and a referral to orthopedics for follow-up and possible further evaluation if deemed appropriate which you had also declined. If you change your mind regarding these things recommend follow-up with primary care and then they can make arrangements as appropriate. Coding Level of Care Code ED Community Resource Officer for Meche Vásquez
== END 2024-04-30 10:11 | disposition home or self-care (01) ==
PROVIDERS: Emergency Provider Family Medicine
DX: M25.512 Pain in left shoulder (principal); F17.210 Nicotine dependence, cigarettes, uncomplicated
CPT/HCPCS: 99283

== ENCOUNTER 2024-05-29 12:36 | Inpatient (IN) | payer MEDICAID, SELFPAY ==
--- NOTE | 2024-05-29 12:46 | W.ED.PSYCHS ---
HPI - Psych General: Chief Complaint: Psychiatric Symptoms Stated Complaint: MHE Time Seen by Provider: 05/29/24 12:42 History of Present Illness: 33-year-old man who presents emergency room with mental health issues. He says he is stressed to the max . He says he has not homicidal nor is he is suicidal, but he would like to be admitted to the hospital to get restarted on meds. I discussed with him it might be better that he go to the crisis center as an outpatient and would have better luck there. Also likely does not qualify for inpatient treatment at this time. After I left the room he tells nursing that he is homicidal and that he is hearing voices and he wants to kill the 3 . He then stopped another staff member and tells him that he is decided he is not homicidal that he is now suicidal. Review of Systems Narrative: Constitutional symptoms: Negative except as documented in HPI. Skin symptoms: Negative except as documented in HPI. Eye symptoms: Negative except as documented in HPI. ENMT symptoms: Negative except as documented in HPI. Respiratory symptoms: Negative except as documented in HPI. Cardiovascular symptoms: Negative except as documented in HPI. Gastrointestinal symptoms: Negative except as documented in HPI. Genitourinary symptoms: Negative except as documented in HPI. Musculoskeletal symptoms: Negative except as documented in HPI. Neurologic symptoms: Negative except as documented in HPI. Psychiatric symptoms: Negative except as documented in HPI. Endocrine symptoms: Negative except as documented in HPI. FORMERLY [facility], [facility] ED PFSH: Medical History Nicotine use disorder Psychiatric care No pertinent family history Methamphetamine abuse Substance induced mood disorder Social History Smoking and tobacco/nicotine status: current every day tobacco/nicotine user cigarettes Quit status (tobacco/nicotine): not considering quitting Second hand smoke exposure: Yes Alcohol intake: current Physical Exam Narrative: EXAM NARRATIVE: General: Alert, no acute distress. Skin: Warm, dry. Head: Normocephalic, atraumatic. Neck: Supple, trachea midline. Eye: Extraocular movements are intact. Ears, nose, mouth and throat: mucosa moist. Cardiovascular: Regular, Normal peripheral perfusion. Respiratory: Lungs are clear to auscultation, respirations are non-labored, breath sounds are equal, Symmetrical chest wall expansion. Gastrointestinal: Soft, Nontender, Non distended Musculoskeletal: Normal ROM, no deformity. Neurological: Alert and oriented, No focal neurological deficit observed. Psychiatric: Cooperative, appropriate mood & affect. Course Vital Signs: Vital signs: Vital Signs Temperature 97.3 F L 05/29/24 12:50 Pulse Rate 81 05/29/24 12:50 Respiratory Rate 18 05/29/24 12:50 Blood Pressure 131/76 05/29/24 12:50 Pulse Oximetry 95 05/29/24 12:50 Oxygen Delivery Me thod Room Air 05/29/24 12:50 MDM - Psych Medical Decision Making Differential diagnosis: Patient with reported hallucinations, homicidal ideation, depression, anxiety. concerns for infection, alcohol intoxication, cardiac issues or other medical problems prior to psychiatric admission. Workup: labwork, ekg ordered to evaluate the pathologies and to clear the patient medically prior to psychiatric admission EKG: Normal sinus rhythm, No ST-T changes, no ectopy, normal TX & QRS intervals, This was reviewed and interpreted by myself the ER physician at 1329. Lab Review: Laboratory results were reviewed and interpreted by myself the emergency room physician. Lab review: - Medically cleared. - EKG shows no ischemic changes. - Blood alcohol level is negative, -Tylenol and salicylate levels are negative. - Drug screen is positive for amphetamines and marijuana - No signs of infection, urinalysis clear and white count is not elevated - No anemia. - BUN and creatinine are within normal limits. Consultation: I spoke with Dr. Salinas who is on-call for psychiatry and he agrees to admission. Assessment and plan: Psychosis Medical noncompliance Suicidal ideation Amphetamine abuse Marijuana use -Admission to neuropsychiatric unit for continued evaluation and treatment. - All lab work was reviewed and interpreted personally by myself, the ER physician - Evaluation and treatment of this problem were appropriate in the emergency setting Lab Data 05/29/24 13:13 05/29/24 13:13 Laboratory Results WBC 12.81 10^3/uL (3.29-11.43) H 05/29/24 13:13 RBC 4.84 10^6/uL (3.85-5.65) 05/29/24 13:13 Hgb 14.10 g/dL (11.27-16.99) 05/29/24 13:13 Hct 43.8 % (37-53) 05/29/24 13:13 MCV 90.5 fl (82-101) 05/29/24 13:13 MCH 29.1 pg (27-33) 05/29/24 13:13 MCHC 32.2 g/dL (30-55) 05/29/24 13:13 RDW 13.6 % (12.1-15.1) 05/29/24 13:13 Plt Count 233 10^3/cmm (157-399) 05/29/24 13:13 MPV 11.5 fL (7.4-10.4) H 05/29/24 13:13 Neut % (Auto) 36.7 % 05/29/24 13:13 Lymph % (Auto) 55.0 % 05/29/24 13:13 [place] % (Auto) 6.9 % 05/29/24 13:13 Eos % (Auto) 0.6 % 05/29/24 13:13 Baso % (Auto) 0.5 % 05/29/24 13:13 Neut # (Auto) 4.70 10^3/uL (1.8-7.7) 05/29/24 13:13 Lymph # (Auto) 7.0 10^3/uL (0.8-4.8) H 05/29/24 13:13 [place] # (Auto) 0.9 10^3/uL (0.2-0.9) 05/29/24 13:13 Eos # (Auto) 0.1 10^3/uL (0.0-0.8) 05/29/24 13:13 Baso # (Auto) 0.1 10^3/uL (0.0-0.1) 05/29/24 13:13 Nucleated RBC % (auto) 0 % 05/29/24 13:13 Nucleated RBCs # 0.0 /100WBC 05/29/24 13:13 Sodium 138 mmol/L (136-145) 05/29/24 13:13 Potassium 4.1 mmol/L (3.5-5.1) 05/29/24 13:13 Chloride 105 mmol/L (98-107) 05/29/24 13:13 Carbon Dioxide 21 mmol/L (22-29) L 05/29/24 13:13 Anion Gap 16.1 (5-19) 05/29/24 13:13 BUN 16 mg/dL (6-20) 05/29/24 13:13 Creatinine 0.9 mg/dL (0.7-1.2) 05/29/24 13:13 GFR Calculation 97.8 mL/min (90-130) 05/29/24 13:13 Glucose 147 mg/dL (65-115) H 05/29/24 13:13 Calculated Osmolality 290 mOsm/kg (285-295) 05/29/24 13:13 Calcium 8.8 mg/dL (8.5-10.5) 05/29/24 13:13 Total Bilirubin 0.3 mg/dL (0.15-1.2) 05/29/24 13:13 AST 21 U/L (0-40) 05/29/24 13:13 ALT 38 U/L (0-41) 05/29/24 13:13 Alkaline Phosphatase 76 U/L (40-130) 05/29/24 13:13 Total Protein 6.8 g/dL (6.6-8.7) 05/29/24 13:13 Albumin 4.0 g/dL (3.5-5.2) 05/29/24 13:13 Globulin 2.8 g/dL (1.3-4.6) 05/29/24 13:13 TSH 0.58 uIU/mL (0.27-4.20) 05/29/24 13:13 Urine Color Yellow (Yellow) 05/29/24 13:29 Urine Appearance Clear (CLEAR) 05/29/24 13:29 Urine pH 6 (5-7) 05/29/24 13:29 Ur Specific [place] [employer] 1.020 (1.005-1.030) 05/29/24 13:29 Urine Protein Neg (Negative) 05/29/24 13:29 Urine Glucose (UA) Norm (Normal) 05/29/24 13:29 Urine Ketones Negative (Negative) 05/29/24 13:29 Urine Blood Neg (Negative) 05/29/24 13:29 Urine Nitrate Negative (Negative) 05/29/24 13:29 Urine Bilirubin Neg (Negative) 05/29/24 13:29 Urine Urobilinogen Norm mg/dL (Negative) 05/29/24 13:29 Ur Leukocyte Esterase Negative (Negative) 05/29/24 13:29 Urine RBC None /hpf (0-2) 05/29/24 13:29 Urine WBC Rare /hpf (0-5) 05/29/24 13:29 Ur Squamous Epith Cells None /hpf (0-5) 05/29/24 13:29 Amorphous Sediment Not Reportable 05/29/24 13:29 Urine Bacteria None /hpf (NONE) 05/29/24 13:29 Salicylates < 0.3 mg/dL (3-10) L 05/29/24 13:13 Urine Opiates Screen Negative ng/mL (Negative) 05/29/24 13:29 Acetaminophen < 5.0 ug/mL (10-30) L 05/29/24 13:13 Ur Barbiturates Screen Negative ng/mL (Negative) 05/29/24 13:29 Ur Phencyclidine Scrn Negative ng/mL (Negative) 05/29/24 13:29 Ur Amphetamines Screen Positive ng/mL (Negative) H 05/29/24 13:29 U Benzodiazepines Scrn Negative ng/mL (Negative) 05/29/24 13:29 Urine Cocaine Screen Negative ng/mL (Negative) 05/29/24 13:29 U Marijuana (THC) Screen Positive ng/mL (Negative) H 05/29/24 13:29 Ethyl Alcohol < 10 mg/dL (0-10) 05/29/24 13:13 No radiology studies performed this visit Discharge Plan Discharge Patient Disposition: Admitted As Inpatient Clinical Impression: Suicidal ideation, Chronic schizophrenia, Acute psychosis, Depression, Methamphetamine abuse, Cannabis abuse Condition: Stable Coding Level of Care Code ED [employer] for Meche Vásquez
[2024-05-29 12:50] VITALS: BP 131/76; PULSE 81; RESP 18; TEMP 36.3; O2SAT 95; BMI 25.8
[2024-05-29 13:19] LABS: Basophils # 0.1 10^3/uL (0.0-0.1); Basophils % 0.5 %; Eosinophils # 0.1 10^3/uL (0.0-0.8); Eosinophils % 0.6 %; Hematocrit 43.8 % (37-53); Mean Corpuscular HGB Conc 32.2 g/dL (30-55); Mean Corpuscular Hemoglobin 29.1 pg (27-33); Mean Corpuscular Volume 90.5 fl (82-101); Mean Platelet Volume 11.5 fL (7.4-10.4); Monocytes # 0.9 10^3/uL (0.2-0.9); Monocytes % 6.9 %; Neutrophils % 36.7 %; Nucleated Red Blood Cells % 0 %; Platelet Count 233 10^3/cmm (157-399); Red Blood Count 4.84 10^6/uL (3.85-5.65); Red Cell Distribution Width 13.6 % (12.1-15.1); White Blood Count 12.81 10^3/uL (3.29-11.43)
--- NOTE | 2024-05-29 13:26 | ECG_ITS ---
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 Measurements Intervals [place] Rate: 77 P: 37 DC: 145 QRS: 1 QRSD: 98 T: 34 QT: 366 QTc: 417 Interpretive Statements SINUS RHYTHM No previous ECG available for comparison Electronically Signed On 05-29-2024 19:57:42 CDT by Keith Hurley M.D. [email or web address]
[2024-05-29 13:54] LABS: Alanine Aminotransferase 38 U/L (0-41); Alkaline Phosphatase 76 U/L (40-130); Anion Gap 16.1 (5-19); Aspartate Amino Transferase 21 U/L (0-40); Blood Urea Nitrogen 16 mg/dL (6-20); Calcium 8.8 mg/dL (8.5-10.5); Carbon Dioxide 21 mmol/L (22-29); Chloride 105 mmol/L (98-107); Creatinine Clr Calc Pharmacy 115.9953; Globulin 2.8 g/dL (1.3-4.6); Glomerular Filtration Rate 97.8 mL/min (90-130); Glucose 147 mg/dL (65-115); Osmolality Calculated 290 mOsm/kg (285-295); Potassium 4.1 mmol/L (3.5-5.1); Sodium 138 mmol/L (136-145); Thyroid Stimulating Hormone 0.58 uIU/mL (0.27-4.20); Total Bilirubin 0.3 mg/dL (0.15-1.2); Total Protein 6.8 g/dL (6.6-8.7)
[2024-05-29 14:05] LABS: Acetaminophen < 5.0 ug/mL (10-30); Alcohol Level < 10 mg/dL (0-10); Salicylate < 0.3 mg/dL (3-10); Slide Review Slide Review Perform
[2024-05-29 14:10] LABS: Amphetamines Screen Urine Positive (Negative); Barbiturates Screen Urine Negative (Negative); Benzodiazepines Screen Urine Negative (Negative); Cocaine Screen Urine Negative (Negative); Opiate Screen Urine Negative (Negative); PCP Screen Urine Negative (Negative); THC Screen Urine Positive (Negative)
[2024-05-29 14:12] LABS: Bilirubin Urine Neg (Negative); Blood Urine Neg (Negative); Glucose Urine UA Norm (Normal); Ketones Urine Negative (Negative); Leukocyte Esterase Urine Negative (Negative); Nitrate Urine Negative (Negative); Protein Urine Neg (Negative); Urine Appearance Clear (CLEAR); Urine Color Yellow (Yellow); Urobilinogen Urine Norm (Negative); WBC Urine RARE /hpf (0-5); pH Urine 6 (5-7)
[2024-05-29 16:33] VITALS: BP 131/76; PULSE 81; RESP 18; O2SAT 95
[2024-05-29 17:05] VITALS: BP 115/79; PULSE 84; RESP 16; TEMP 36.6; O2SAT 99
--- NOTE | 2024-05-29 17:31 | PC.ADMIT ---
Homeless Admission Note: The patient,Chuy Valenzuela,33 y/o, was given written information regarding hospital policies, unit procedures and contact persons. Patient's smoking status: current every day smoker. 1 PACK A DAY Vital Signs - 8 hr 05/29/24 12:50 05/29/24 16:33 05/29/24 17:05 Temperature 97.3 F L 97.8 F Pulse Rate 81 81 84 Respiratory Rate 18 18 16 Blood Pressure 131/76 131/76 115/79 Pulse Oximetry 95 95 99 Oxygen Delivery Method Room Air Room Air 05/29/24 17:20 Temperature Pulse Rate Respiratory Rate Blood Pressure Pulse Oximetry Oxygen Delivery Method Room Air ADMITTED FROM [facility] ER VIA WHEELCHAIR AND STAFF AT 1636. PT IS OBSERVED TO HAVE RAPID ANIMATED PRESSURED SPEECH THAT IS AT TIMES SLURRED AND DIFFICULT TO UNDERSTAND. PT DENIES PAIN. SKIN ASSESSMENT COMPLETED WITH BRUISE NOTED TO LEFT AC. PT DRESSED OUT WITHOUT ISSUE. PT STATES HE IS HERE DUE TO WANTING TO KILL MYSELF ALL THE TIME. WHEN ASKED IF HE HAS A PLAN PT STATES NO BUT I DID THING ABOUT HANGING MYSELF ONCE. PT DOES ENDORSE SUICIDAL THOUGHTS WITH NO ACTIVE PLAN. DENIES HI AND AVH BUT STATES HE DOES HALLUCINATE AT TIMES. PT UDS IS POSITIVE FOR THC AND METHAMPHETAMINES. PT STATES HE TAKES NO MEDICATIONS AT THIS TIME AND HAS NO DRUG ALLERGIES. PT IS HOMELESS AND REPORTS ACTIVELY PARTICIPATES WITH THE [facility]. PT TELLS THIS RN THAT HE HAS BEEN USING DRUGS AND ALCOHOL FOR 10-11 YEARS. PT STATES HE DID GO TO REHAB ONCE BUT IT WAS COURT ORDERED AND ONCE IT WAS FINISHED HE RELAPSED AND CONTINUED TO USE DRUGS. PT WAS ORIENTATED TO UNIT, RULES AND SAFETY GUIDELINES. ALL QUESTIONS ANSWERED AND SUPPORT WAS VOICED.
[2024-05-29 20:44] VITALS: BP 117/63; PULSE 64; RESP 17; O2SAT 98
[2024-05-30 06:00] VITALS: BP 98/67; PULSE 51; RESP 16; O2SAT 98
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
[2024-05-30 14:00] VITALS: BP 119/83; PULSE 99; RESP 16; TEMP 37.1; O2SAT 98
[2024-05-30 20:19] VITALS: BP 122/73; PULSE 80; RESP 18; TEMP 36.7; O2SAT 97
[2024-05-30] MEDS: OLANZapine 5 mg ODT PO (20:42)
[2024-05-31 06:00] VITALS: BP 95/55; PULSE 53; RESP 16; O2SAT 99
[2024-05-31 14:00] VITALS: BP 102/64; PULSE 79; RESP 16; TEMP 36.6; O2SAT 99
--- NOTE | 2024-05-31 16:46 | P.NPUPN_ITS ---
Subjective NPU 2 Subjective: Patient is a 33-year-old male admitted with suicidal ideation and reports of depression and increased agitation. The patient had been positive for amphetamines on admission and has a history of methamphetamine use. He had reported that he had been relieved to get help and stated that he had been homeless for several years. He had reported having difficulties with concentration. He had endorsed a past history of hearing voices. He had continued to report feeling paranoid and stated he was having difficulties with trusting others. He had been compliant on the milieu. He had reported having a lack of social supports at this time. Mental Status Exam 2 MSE Comments: This is a well-nourished, well-developed white male in hospital scrubs with adequate grooming and intense eye contact. No abnormal movements except for mild psychomotor agitation. He was cooperative with exam in no acute distress. Speech was normal rate and volume. Mood described as depressed. His affect was restricted in range and mood congruent. Thought process was mostly organized. Thought content: Patient denies suicidal or homicidal ideation, there were no delusions reported but some evidence of paranoia. He did not appear to be responding to internal stimuli. Patient endorsed vague suicidal ideation but denied homicidal ideation. Attention and concentration appeared intact and memory appeared mostly intact but none formally tested. He is alert and oriented x 3. Insight and judgment are limited and impulse control is poor. Vitals/I&O/Wt Last Vital Signs Temp 98 F 05/31/24 14:00 Pulse 79 05/31/24 14:00 Resp 16 05/31/24 14:00 BP 102/64 05/31/24 14:00 Pulse Ox 99 05/31/24 14:00 O2 Del Method Room Air 05/31/24 14:00 Weight last 48 hrs Weight 70.851 kg Data NPU 05/29/24 13:13 05/29/24 13:13 A&P Assessment and plan (1) Benzodiazepine abuse: (2) Cannabis abuse: (3) Drug-induced psychotic disorder with delusions: (4) Substance induced mood disorder: (5) Methamphetamine abuse: (6) Suicidal ideation: (7) Chronic schizophrenia: (8) Acute psychosis: (9) Depression: Plan This is a 33-year-old white male who presents with active addiction and history of significant psychosis with some reported on admission but seems to be resolving to some degree who endorses an openness to get his medications restarted and to reengage in treatment. 1. Continue current medication. Restarted Geodon 40 mg p.o. nightly with increase to 40mg bid in 1-2 days. 2. Continue every 15 minute checks for safety. 3. Encourage individual, group and milieu therapy. 4. Encourage sober living treatment at the highest level of care to which he is willing to commit.Patient may benefit from substance abuse treatment on inpatient basis. Involuntary Hold Information 2 96 Hour Hold: 96 Hour Involuntary Admission: No Attestations NPU 2 Medical Necessity Statement*: Inpatient hospitalization is medically necessary and the clinically appropriate intervention at this time. We will monitor medications and make changes as indicated. His likely length of stay is 3-5 days. Coding Level of Care Code Acute Code for [facility] Fwd Diagnoses Benzodiazepine abuse F13.10 Cannabis abuse F12.10 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 Acute psychosis F23 Depression F32.A
[2024-05-31] MEDS: ziprasidone hcl 40 mg Capsule PO (18:23)
[2024-05-31 20:22] VITALS: BP 102/66; PULSE 84; RESP 17; TEMP 37.2; O2SAT 98
[2024-05-31] MEDS: nicotine 2 mg Gum BUCCAL (21:35)
[2024-05-31] MEDS: trazodone 50 mg Tablet PO (21:35)
[2024-05-31] MEDS: hyDROXYzine 25 mg Capsule 50 MG PO (21:35)
[2024-05-31] MEDS: ibuprofen 600 mg Tablet PO (21:36)
[2024-05-31] MEDS: OLANZapine 5 mg ODT PO (21:36)
--- NOTE | 2024-05-31 21:49 | PC.NURSE ---
Pt c/o left shoulder pain 04/13. Pt description of pain to this RN includes chronic in nature, often aggravated by positional changes-especially laying down in new beds for sleeping. Pt is given PRN ibuprofen PO, Pt is also offered heating paid and ice pack for help with discomfort to which he declines both
--- NOTE | 2024-06-01 01:39 | PC.NURSE ---
Pt is not unable to participate in a fall risk assessment as the chart is asking me to document-He does not want to answer questions or talk with nursing staff at all
[2024-06-01 06:00] VITALS: BP 98/62; PULSE 53; RESP 18; O2SAT 97
--- NOTE | 2024-06-01 09:45 | PC.NURSE ---
Patient has been withdrawn to his room. Denies avh and si/hi. He says he is feeling depressed this morning due to missing both of his children and is upset about his inability to see them. Denies any pain or needs this morning.
[2024-06-01 13:55] VITALS: BP 106/58; PULSE 86; RESP 16; TEMP 36.6; O2SAT 97
[2024-06-01 13:56] LABS: Hepatitis A Antibody IgM Non-Reactive (Nonreactive); Hepatitis B Core AB, Total Non-Reactive (Nonreactive); Hepatitis B Surface AB 76.9 (11.5-1000); Hepatitis B Surface Antigen Non-Reactive (Nonreactive); Hepatitis C Virus Antibody Reactive (Nonreactive)
[2024-06-01 14:46] LABS: HIV 1 & 2 Antibody Non-Reactive (Non-Reactiv); HIV 1 & 2 Antigen Non-Reactive (Non-Reactiv)
--- NOTE | 2024-06-01 17:15 | P.NPUPN_ITS ---
Subjective NPU 2 Subjective: Patient is a 33-year-old male admitted with suicidal ideation and reports of depression and increased agitation. Patient had endorsed history of methamphetamine use along with several other illicit drugs including intravenous drugs. He had revealed that he had been diagnosed with hepatitis C but had not followed up with his primary care doctor in nearly a year. He had reported that he had been homeless for several months. He had reported that at times he had been more paranoid and endorsed feeling increasingly suspicious and often agitated. He had reported no opiate withdrawal symptoms. He had reported strong genetic loading for substance abuse issues. He had reported that he would like to consider substance abuse treatment including potentially inpatient substance abuse rehabilitation as he had reported his last treatment had occurred many years ago. Mental Status Exam 2 MSE Comments: This is a well-nourished, well-developed white male in hospital scrubs with adequate grooming and intense eye contact. No abnormal movements except for mild psychomotor agitation. He was cooperative with exam in no acute distress. Speech was normal rate and volume. Mood described as frustrated. His affect was irritable and mood congruent. Thought process was mostly organized. Thought content: Patient denies suicidal or homicidal ideation, there were no delusions reported but some evidence of paranoia. He did not appear to be responding to internal stimuli. Patient endorsed suicidal ideation but denied homicidal ideation. Attention and concentration appeared intact and memory appeared mostly intact but none formally tested. He is alert and oriented x 3. Insight and judgment are limited and impulse control is poor. Vitals/I&O/Wt Last Vital Signs Temp 98 F 06/01/24 13:55 Pulse 86 06/01/24 13:55 Resp 16 06/01/24 13:55 BP 106/58 06/01/24 13:55 Pulse Ox 97 06/01/24 13:55 O2 Del Method Room Air 06/01/24 13:55 Weight last 48 hrs Weight 70.851 kg Data NPU 05/29/24 13:13 05/29/24 13:13 A&P Assessment and plan (1) Acute psychosis: (2) Depression: (3) Cannabis abuse: (4) Drug-induced psychotic disorder with delusions: (5) Substance induced mood disorder: (6) Methamphetamine abuse: (7) Suicidal ideation: (8) Chronic schizophrenia: Plan This is a 33-year-old white male who presents with active addiction and history of significant psychosis with some reported on admission but seems to be resolving to some degree who endorses an openness to get his medications restarted and to reengage in treatment. 1. Continue current medication. Restarted Geodon 40 mg p.o. nightly with increase to 40mg bid in 1-2 days. 2. Continue every 15 minute checks for safety. 3. Encourage individual, group and milieu therapy. 4. Encourage sober living treatment at the highest level of care to which he is willing to commit. Patient may benefit from substance abuse treatment on inpatient basis. Involuntary Hold Information 2 96 Hour Hold: 96 Hour Involuntary Admission: No Attestations NPU 2 Medical Necessity Statement*: Inpatient hospitalization is medically necessary and the clinically appropriate intervention at this time. We will monitor medications and make changes as indicated. His likely length of stay is 3-5 days. Coding Level of Care Code Acute Code for [facility] Fwd Diagnoses Acute psychosis F23 Depression F32.A Cannabis abuse F12.10 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
[2024-06-01] MEDS: ziprasidone hcl 40 mg Capsule PO (18:38)
[2024-06-01 21:37] VITALS: BP 105/70; PULSE 97; RESP 15; TEMP 36.4; O2SAT 96
[2024-06-02 06:00] VITALS: BP 103/56; PULSE 69; RESP 15; TEMP 36.6; O2SAT 98
[2024-06-02] MEDS: ziprasidone hcl 40 mg Capsule PO ×2 (09:16→17:44)
[2024-06-02 14:00] VITALS: BP 138/79; PULSE 100; RESP 16; TEMP 36.6; O2SAT 97
[2024-06-02 14:22] LABS: HEP C RNA Viral Load Quant 1960000 IU/mL (NOT DETECTED); HEP C RNA Viral Load Quant 6.29 Log IU/mL (NOT DETECTED)
[2024-06-02] MEDS: nicotine 2 mg Gum BUCCAL ×2 (15:33→17:44)
--- NOTE | 2024-06-02 18:40 | P.NPUPN_ITS ---
Subjective NPU 2 Subjective: Patient is a 33-year-old male admitted with suicidal ideation and reports of depression and increased agitation with hx of substance induced psychosis. The patient had reported not feeling any different. He reported that his energy continue to be low. He had reported no current cravings for any drugs. He had reported that he had been feeling a little calmer but reported some depressed mood. He had reported motivation with receiving substance abuse treatment and reported having been fatigued from chronic homelessness. He reported no side effects from his Geodon at this time. Mental Status Exam 2 MSE Comments: This is a well-nourished, well-developed white male in hospital scrubs with adequate grooming and intense eye contact. No abnormal movements except for mild psychomotor agitation. He was cooperative with exam in no acute distress. Speech was normal in rate and volume. Mood described as the same. His affect was irritable and mood congruent. Thought process was linear and more organized. Thought content: Patient denies suicidal or homicidal ideation, there were no delusions reported and less evdence of paranoia. He did not appear to be responding to internal stimuli. Patient denied suicidal ideation and denied homicidal ideation. Attention and concentration appeared intact and memory appeared mostly intact but none formally tested. He is alert and oriented x 3. Insight and judgment are limited and impulse control is poor. Vitals/I&O/Wt Last Vital Signs Temp 97.8 F 06/02/24 14:00 Pulse 100 06/02/24 14:00 Resp 16 06/02/24 14:00 BP 138/79 06/02/24 14:00 Pulse Ox 97 06/02/24 14:00 O2 Del Method Room Air 06/02/24 14:00 Data NPU 05/29/24 13:13 05/29/24 13:13 A&P Assessment and plan (1) Acute psychosis: (2) Depression: (3) Cannabis abuse: (4) Drug-induced psychotic disorder with delusions: (5) Substance induced mood disorder: (6) Methamphetamine abuse: (7) Suicidal ideation: (8) Chronic schizophrenia: Plan This is a 33-year-old white male who presents with active addiction and history of significant psychosis with some reported on admission but seems to be resolving to some degree who endorses an openness to get his medications restarted and to reengage in treatment. 1. Continue current medication. Continue Geodon 40mg bid. 2. Continue every 15 minute checks for safety. 3. Encourage individual, group and milieu therapy. 4. Encourage sober living treatment at the highest level of care to which he is willing to commit. Referral for [facility] for substance abuse treatment. Involuntary Hold Information 2 96 Hour Hold: 96 Hour Involuntary Admission: No Attestations NPU 2 Medical Necessity Statement*: Inpatient hospitalization is medically necessary and the clinically appropriate intervention at this time. We will monitor medications and make changes as indicated. His likely length of stay is 3-5 days. Coding Level of Care Code Acute Code for g Fwd Diagnoses Acute psychosis F23 Depression F32.A Cannabis abuse F12.10 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
[2024-06-02 21:28] VITALS: BP 119/84; PULSE 80; RESP 16; O2SAT 96
[2024-06-03 06:00] VITALS: BP 108/62; PULSE 83; RESP 15; TEMP 36.6; O2SAT 97
[2024-06-03] MEDS: ziprasidone hcl 40 mg Capsule PO ×2 (08:34→18:28)
--- NOTE | 2024-06-03 08:47 | PC.NURSE ---
Patient denies SI, HI, AVH, depression, and anxiety. Initially, patient refusing morning medication (geodon) and stating that he is wanting to leave. After about an hour, patient said scratch that , and says that he will take his geodon. Patient said I don't want to talk about it when trying to determine the reason for the switch.
[2024-06-03 14:00] VITALS: BP 110/82; PULSE 78; RESP 17; TEMP 36.6; O2SAT 98
[2024-06-03] MEDS: nicotine 2 mg Gum BUCCAL ×2 (14:57→18:16)
--- NOTE | 2024-06-03 16:21 | P.NPUPN_ITS ---
Subjective NPU 2 Subjective: Patient is a 33-year-old male admitted with suicidal ideation and reports of depression and increased agitation with hx of substance induced psychosis. Patient reported no psychotic symptoms today. He had reported that he had felt calmer. He reported that he needed treatment for his frequent methamphetamine use. He had expressed willingness to attend [facility] on an outpatient or inpatient basis. No side effects were reported from his Geodon. Mental Status Exam 2 MSE Comments: This is a well-nourished, well-developed white male in hospital scrubs with adequate grooming and intense eye contact. No abnormal movements except for mild psychomotor agitation. He was cooperative with exam in no acute distress. Speech was normal in rate and volume. Mood described as the same. His affect was less irritable. Thought process was linear and more organized. Thought content: Patient denies suicidal or homicidal ideation, there were no delusions reported and no overt paranoia appreciated. He did not appear to be responding to internal stimuli. Patient denied suicidal ideation and denied homicidal ideation. Attention and concentration appeared intact and memory appeared mostly intact but none formally tested. He is alert and oriented x 3. Insight was improving and judgment is improving. and impulse control was poor. Vitals/I&O/Wt Last Vital Signs Temp 97.9 F 06/03/24 06:00 Pulse 83 06/03/24 06:00 Resp 15 06/03/24 06:00 BP 108/62 06/03/24 06:00 Pulse Ox 97 06/03/24 06:00 O2 Del Method Room Air 06/03/24 06:00 Data NPU 05/29/24 13:13 05/29/24 13:13 A&P Assessment and plan (1) Acute psychosis: (2) Depression: (3) Cannabis abuse: (4) Drug-induced psychotic disorder with delusions: (5) Substance induced mood disorder: (6) Methamphetamine abuse: (7) Suicidal ideation: (8) Chronic schizophrenia: Plan This is a 33-year-old white male who presents with active addiction and history of significant psychosis with some reported on admission but seems to be resolving to some degree who endorses an openness to get his medications restarted and to reengage in treatment. 1. Continue Geodon 40mg bid. 2. Continue every 15 minute checks for safety. 3. Encourage individual, group and milieu therapy. 4. Encourage sober living treatment at the highest level of care to which he is willing to commit. Patient accepted to [facility] with plan for discharge there on 06/04/24. Involuntary Hold Information 2 96 Hour Hold: 96 Hour Involuntary Admission: No Attestations NPU 2 Medical Necessity Statement*: Inpatient hospitalization is medically necessary and the clinically appropriate intervention at this time. We will monitor medications and make changes as indicated. His likely length of stay is 1-2 days. Coding Level of Care Code Acute Code for [facility] Fwd Diagnoses Acute psychosis F23 Depression F32.A Cannabis abuse F12.10 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
[2024-06-03 21:10] VITALS: BP 122/78; PULSE 84; RESP 15; O2SAT 96
[2024-06-04 06:00] VITALS: BP 101/63; PULSE 86; RESP 14; TEMP 36.6; O2SAT 97
[2024-06-04 07:51] VITALS: BP 101/63; PULSE 86; RESP 14; TEMP 36.6; O2SAT 97
[2024-06-04] MEDS: nicotine 2 mg Gum BUCCAL (08:19)
[2024-06-04] MEDS: ziprasidone hcl 40 mg Capsule PO (08:24)
--- NOTE | 2024-06-04 09:02 | P.NPUDS_ITS ---
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 13:13 HIV 1&2 Antibody Non-reactive (No n-Reactiv) 06/01/24 13:13 Vitals: Last Vital Signs Temp 98 F 06/04/24 07:51 Pulse 86 06/04/24 07:51 Resp 14 06/04/24 07:51 BP 101/63 06/04/24 07:51 Pulse Ox 97 06/04/24 07:51 O2 Del Method Room Air 06/04/24 06:00 Discharge Plan Discharge Patient Disposition: Home Condition: Stable Prescriptions: New ziprasidone HCl 40 mg Capsule 40 mg PO 0900,1800 Qty: 60 1RF Discharge Orders: Discharge Order (Routine); Ordered 06/04/24 Ordered By: Real Patel Referrals: [facility] [Other] - 06/04/24 10:00 am Mary Dykes PMHNP [Staff Physician] - 06/10/24 10:15 am (Follow up) Discharge Diet: Usual diet Discharge Activity: Resume usual activity Patient Instructions: Ziprasidone (By mouth) ([place]), Depression (DC), Help Prevent Suicide (DC), Opioid Safety Discharge Attestations NPU Time Spent in Discharge Care*: less than 30 min Specific Discharge Activities: Specific discharge activities: educating patient, discussing with case fitter/social workers/dc planners and documenting/other paperwork Status at Discharge: Cognitive status at discharge: cognitively intact , Behavioral status at discharge: cooperative , Coding Level of Care Code Acute Code for [facility] Fwd Diagnoses Acute psychosis F23 Depression F32.A Cannabis abuse F12.10 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
== END 2024-06-04 10:13 | DRG 881 ==
LOC: ER 14:24 → NP 15:20
PROVIDERS: Psychiatry & Neurology Psychiatry; Admitting Provider Psychiatry & Neurology Psychiatry; Emergency Provider Emergency Medicine; Visit Provider Psychiatry & Neurology Psychiatry
DX: F32.A Depression, unspecified (principal); R45.851 Suicidal ideations; Z59.00 Homelessness unspecified; F15.150 Other stimulant abuse with stimulant-induced psychotic disorder with delusions; Z91.148 Patient's other noncompliance with medication regimen for other reason; F15.14 Other stimulant abuse with stimulant-induced mood disorder; F12.10 Cannabis abuse, uncomplicated; F20.9 Schizophrenia, unspecified; Z72.0 Tobacco use
CPT/HCPCS: 36415; 80053; 80306; 80307; 81001; 84443; 85025; 86705; 86706; 86709; 86803; 87340; 87522; 87806; 93005; 97165; 99285

== ENCOUNTER → 2024-08-03 09:05 | Outpatient (BNVA) | payer OTHER, SELFPAY | PROVIDERS: Visit Provider Nurse Practitioner Psychiatric/Mental Health | DX: F20.9 Schizophrenia, unspecified (principal); F41.1 Generalized anxiety disorder | CPT/HCPCS: 80061; 83036 ==

== ENCOUNTER 2024-11-28 06:08 | Emergency (ER) | payer MEDICAID, SELFPAY ==
[2024-08-04 16:30] VITALS: BP 114/71; BMI 23.7
[2024-11-28 06:21] VITALS: BP 140/78; PULSE 117; RESP 18; TEMP 37.2; O2SAT 99; BMI 23.5
--- NOTE | 2024-11-28 06:53 | W.ED.URI ---
HPI - URI/Sore Throat General: Chief Complaint: Upper Respiratory Infection Stated Complaint: cough, congestion Time Seen by Provider: 11/28/24 06:53 History of Present Illness: 34-year-old male presents emergency room with complaint of cough and fever at home. He is concerned he may have pneumonia. He reports productive cough denies any hemoptysis. He is mildly tachycardic on arrival. Patient denies any chest pain. No vomiting no diarrhea. Associated symptoms: Deny abdominal pain, chills, chest pain or fever(s) Related Data Home Medications Medication Instructions Recorded Confirmed alprazolam 1 mg tablet 1 mg PO Q6H 11/28/24 11/28/24 Previous Rx's Medication Instructions Recorded albuterol sulfate 90 mcg/actuation 2 inh inhalation Q4H PRN shortness 11/28/24 aerosol inhaler of breath or wheezing #18 grams Allergies Allergy/AdvReac Type Severity Reaction Status Date / Time No Known Allergies Allergy Verified 08/03/24 10:05 Review of Systems Const: Denies: fever(s) or chills Card: Denies: chest pain Resp: Reports: dyspnea, productive cough, wheezing and chest congestion GI: Denies: abdominal pain : Denies: dysuria, urinary frequency or urinary urgency Musc: Denies: neck pain or back pain Skin/Breast: Denies: rash PFSH ED PFSH: Medical History Other stimulant dependence with stimulant-induced mood disorder Methamphetamines Marijuana dependence Nicotine use disorder Psychiatric care No pertinent family history Social History Smoking and tobacco/nicotine status: current every day tobacco/nicotine user cigarettes Quit status (tobacco/nicotine): not considering quitting Second hand smoke exposure: Yes Alcohol intake: former Substance/Drug Use: former Adopted: Yes Housing: Homeless Number of children: 2 Highest education level completed: High School Graduate service: Yes Current occupational status: disabled Current occupational exposures/hazards: No Casandra/Jewish: Sabianist Special casandra needs: No Physical Exam Const: COMMON NORMALS: no acute distress GENERAL APPEARANCE: cooperative and comfortable ORIENTATION/CONSCIOUSNESS: Yes awake, Yes oriented to person, Yes oriented to place and Yes oriented to time HENMT: COMMON NORMALS: normocephalic, atraumatic and hearing grossly normal bilaterally HEAD & SCALP: normocephalic and atraumatic Resp: COMMON NORMALS: normal respiratory effort, No retractions and No use of accessory muscles AUSCULTATION: rales (Left base) Cardio: COMMON NORMALS: regular rate, regular rhythm and No murmurs present (Cardio) RATE: regular rate RHYTHM: regular rhythm GI: COMMON NORMALS: Soft to palpation and No hepatosplenomegaly present AUSCULTATION: Yes normoactive bowel sounds PALPATION: Yes Soft to palpation, No Tenderness to palpation present (GI), No Guarding due to palpation present (GI) and Yes No hepatosplenomegaly present Extremity: COMMON NORMALS: normal to inspection, capillary refill normal, no clubbing, cyanosis or edema, no calf tenderness and no pedal edema Neuro: SENSORIUM/ORIENTATION: Yes oriented to person, Yes oriented to place and Yes oriented to time Skin: COMMON NORMALS: no rashes or lesions noted GENERAL SKIN EXAM: no rashes or lesions noted Course Vital Signs: Vital signs: Vital Signs Temperature 99 F 11/28/24 06:21 Pulse Rate 129 H 11/28/24 07:55 Respiratory Rate 18 11/28/24 06:21 Blood Pressure 111/45 11/28/24 07:55 Pulse Oximetry 93 11/28/24 07:55 MDM - URI/Sore Throat Medical Decision Making Patient test positive for flu and enzymes. Respiratory bullard he is well compensated. He has not low-grade temp sats are in the mid 90s. Discharge home. We discussed the use of antivirals. Ultimately decided not to use did give him albuterol to use as needed. Supportive cares. Patient currently is homeless encouraged him to follow-up back crisis stabilization to see if they could help him up with get into one of the local shelters. Medical Records I reviewed the patient's medical records. Lab Data I reviewed the patient's lab results. 11/28/24 07:17 11/28/24 07:17 Radiology Impressions Chest X-Ray 11/28/24 07:01 IMPRESSION: No acute findings. Laboratory Results WBC 12.46 10^3/uL (3.29-11.43) H 11/28/24 07:17 RBC 5.05 10^6/uL (3.85-5.65) 11/28/24 07:17 Hgb 14.80 g/dL (11.27-16.99) 11/28/24 07:17 Hct 44.1 % (37-53) 11/28/24 07:17 MCV 87.3 fl (82-101) 11/28/24 07:17 MCH 29.3 pg (27-33) 11/28/24 07:17 MCHC 33.6 g/dL (30-55) 11/28/24 07:17 RDW 13.2 % (12.1-15.1) 11/28/24 07:17 Plt Count 174 10^3/cmm (157-399) 11/28/24 07:17 MPV 10.9 fL (7.4-10.4) H 11/28/24 07:17 Neut % (Auto) 53.2 % 11/28/24 07:17 Lymph % (Auto) 31.7 % 11/28/24 07:17 [place] % (Auto) 13.8 % 11/28/24 07:17 Eos % (Auto) 0.4 % 11/28/24 07:17 Baso % (Auto) 0.6 % 11/28/24 07:17 Neut # (Auto) 6.62 10^3/uL (1.8-7.7) 11/28/24 07:17 Lymph # (Auto) 4.0 10^3/uL (0.8-4.8) 11/28/24 07:17 [place] # (Auto) 1.7 10^3/uL (0.2-0.9) H 11/28/24 07:17 Eos # (Auto) 0.1 10^3/uL (0.0-0.8) 11/28/24 07:17 Baso # (Auto) 0.1 10^3/uL (0.0-0.1) 11/28/24 07:17 Nucleated RBC % (auto) 0 % 11/28/24 07:17 Nucleated RBCs # 0.0 /100WBC 11/28/24 07:17 Sodium 132 mmol/L (136-145) L 11/28/24 07:17 Potassium 4.4 mmol/L (3.5-5.1) 11/28/24 07:17 Chloride 97 mmol/L (98-107) L 11/28/24 07:17 Carbon Dioxide 24 mmol/L (22-29) 11/28/24 07:17 Anion Gap 15.4 (5-19) 11/28/24 07:17 BUN 12 mg/dL (6-20) 11/28/24 07:17 Creatinine 0.7 mg/dL (0.7-1.2) 11/28/24 07:17 GFR Calculation 129.9 mL/min (90-130) 11/28/24 07:17 Glucose 109 mg/dL (65-115) 11/28/24 07:17 Calculated Osmolality 274 mOsm/kg (285-295) L 11/28/24 07:17 Calcium 8.7 mg/dL (8.5-10.5) 11/28/24 07:17 Total Bilirubin 0.5 mg/dL (0.15-1.2) 11/28/24 07:17 AST 31 U/L (0-40) 11/28/24 07:17 ALT 33 U/L (0-41) 11/28/24 07:17 Alkaline Phosphatase 75 U/L (40-130) 11/28/24 07:17 Total Protein 7.1 g/dL (6.6-8.7) 11/28/24 07:17 Albumin 4.0 g/dL (3.5-5.2) 11/28/24 07:17 Globulin 3.1 g/dL (1.3-4.6) 11/28/24 07:17 Coronavirus (PCR) Positive (Negative) A 11/28/24 06:29 Influenza A (PCR) Positive (Negative) 11/28/24 06:29 Influenza Type B (PCR) Negative (Negative) 11/28/24 06:29 RSV (PCR) Negative (Negative) 11/28/24 06:29 All radiology interpretation(s) finalized by discharge Discharge Plan Discharge Patient Disposition: Home Clinical Impression: COVID-19, Influenza Condition: Stable Prescriptions: New albuterol sulfate 90 mcg/actuation HFA aerosol inhaler 2 inh INHALATION Q4H PRN (Reason: shortness of breath or wheezing) Qty: 18 0RF No Action alprazolam 1 mg tablet 1 mg PO Q6H Discharge Orders: Discharge ED (Routine); Ordered 11/28/24 Ordered By: Osman L Horstman Patient Instructions: Influenza (ED), COVID-19 (Coronavirus Disease 2019) (ED), Opioid Safety, Pain Management Activity Restrictions/Additional Instructions: Thank you for choosing [facility] for your healthcare needs today. It is very important that you follow up as instructed or that you return to the Emergency Department should you have concerns or if your condition changes or worsens in any way. Coding Level of Care Code ED Administration Assistant for Meche Vásquez
--- NOTE | 2024-11-28 07:01 | XRR_ITS ---
PROCEDURE INFORMATION: Exam: XR Chest Exam date and time: 11/28/2024 7:07 AM Age: 34 years old Clinical indication: Cough and dyspnea; Additional info: Dyspnea/cough TECHNIQUE: Imaging protocol: Radiologic exam of the chest. Views: 1 view. COMPARISON: CR XR chest 1V [id number] 05/03/2023 10:11 PM FINDINGS: Lungs: Unremarkable. No consolidation. Pleural spaces: Unremarkable. No pleural effusion. No pneumothorax. Heart/Mediastinum: Unremarkable. No cardiomegaly. Bones/joints: Unremarkable. XR/XR chest 1V portable [id number] IMPRESSION: No acute findings.
[2024-11-28 07:21] LABS: Influenza A POSITIVE (Negative); Influenza B NEGATIVE (Negative); Respiratory Syncytial Virus Ce NEGATIVE (Negative)
[2024-11-28 07:24] LABS: Basophils # 0.1 10^3/uL (0.0-0.1); Basophils % 0.6 %; Eosinophils # 0.1 10^3/uL (0.0-0.8); Eosinophils % 0.4 %; Hematocrit 44.1 % (37-53); Lymphocytes % 31.7 %; Mean Corpuscular HGB Conc 33.6 g/dL (30-55); Mean Corpuscular Hemoglobin 29.3 pg (27-33); Mean Corpuscular Volume 87.3 fl (82-101); Mean Platelet Volume 10.9 fL (7.4-10.4); Monocytes # 1.7 10^3/uL (0.2-0.9); Monocytes % 13.8 %; Neutrophils # 6.62 10^3/uL (1.8-7.7); Neutrophils % 53.2 %; Nucleated Red Blood Cells % 0 %; Platelet Count 174 10^3/cmm (157-399); Red Blood Count 5.05 10^6/uL (3.85-5.65); Red Cell Distribution Width 13.2 % (12.1-15.1); White Blood Count 12.46 10^3/uL (3.29-11.43)
[2024-11-28 07:29] LABS: Covid PCR Positive (Negative)
--- NOTE | 2024-11-28 07:33 | PC.PHAR ---
Pt states he only takes the Alprazolam 1mg qid. Pt has 2 other medications in his recent history: Tramadol 50mg q8h prn last fill 09/04/24 30ds #90 and Sertraline 50mg daily last fill 09/04/24 30ds. Removed from med list.
[2024-11-28 07:46] LABS: Alanine Aminotransferase 33 U/L (0-41); Alkaline Phosphatase 75 U/L (40-130); Anion Gap 15.4 (5-19); Aspartate Amino Transferase 31 U/L (0-40); Blood Urea Nitrogen 12 mg/dL (6-20); Calcium 8.7 mg/dL (8.5-10.5); Carbon Dioxide 24 mmol/L (22-29); Chloride 97 mmol/L (98-107); Globulin 3.1 g/dL (1.3-4.6); Glomerular Filtration Rate 129.9 mL/min (90-130); Glucose 109 mg/dL (65-115); Osmolality Calculated 274 mOsm/kg (285-295); Potassium 4.4 mmol/L (3.5-5.1); Sodium 132 mmol/L (136-145); Total Bilirubin 0.5 mg/dL (0.15-1.2); Total Protein 7.1 g/dL (6.6-8.7)
[2024-11-28 07:55] VITALS: BP 111/45; PULSE 129; O2SAT 93
--- NOTE | 2024-11-28 10:16 | PC.NURSE ---
I called in a prescription for Paxlovid to [facility] pharmacy per Dr. Blanca for the patient. No refills.
== END 2024-11-28 07:57 | disposition home or self-care (01) ==
PROVIDERS: Emergency Provider Family Medicine
DX: U07.1 COVID-19 (principal); J10.1 Influenza due to other identified influenza virus with other respiratory manifestations; Z11.52 Encounter for screening for COVID-19; F17.210 Nicotine dependence, cigarettes, uncomplicated
CPT/HCPCS: 71045; 80053; 85025; 87637; 99284

== ENCOUNTER 2025-01-02 13:26 | Emergency (ER) | payer MEDICAID, SELFPAY ==
[2024-08-04 16:30] VITALS: BP 114/71; BMI 23.7
[2025-01-02 13:36] VITALS: BP 148/78; PULSE 115; RESP 18; TEMP 37.1; O2SAT 98; BMI 28.1
--- NOTE | 2025-01-02 13:56 | W.ED.ANXIETY ---
HPI - Anxiety General: Chief Complaint: Anxiety Stated Complaint: anxiety Time Seen by Provider: 01/02/25 13:40 Source: patient History of Present Illness: Patient is a 34-year-old male with a history of anxiety who states that he takes 1 mg of alprazolam 4 times daily and ran out of that medicine yesterday. He did get his doses yesterday but states he thought he had a refill for his medications on January 02 however is unable to get a refill that until January 04. He has no other acute complaints other than some anxiousness and request a benzodiazepine to help prevent withdrawal symptoms. He states Ativan does not work for him but was agreeable to clonazepam. He has no other acute psychiatric complaints and denies any suicidal ideation or thoughts of self-harm. MD complaint: anxiety Associated symptoms: Deny chest pain, chills, diaphoresis, fever(s), headache(s), nausea or vomiting Related Data Home Medications ?Medication ?Instructions ?Recorded ?Confirmed alprazolam 1 mg tablet 1 mg PO Q6H 11/28/24 01/02/25 Previous Rx's ?Medication ?Instructions ?Recorded albuterol sulfate 90 mcg/actuation 2 inh inhalation Q4H PRN shortness 11/28/24 aerosol inhaler of breath or wheezing #18 grams clonazepam 0.5 mg tablet (Klonopin) 0.5 mg PO BID #4 tabs 01/02/25 Allergies Allergy/AdvReac Type Severity Reaction Status Date / Time No Known Allergies Allergy Verified 08/03/24 10:05 Review of Systems Const: Denies: fever(s), chills or diaphoresis Card: Denies: chest pain Resp: Denies: dyspnea GI: Denies: abdominal pain, nausea or vomiting Skin/Breast: Denies: rash Neuro: Denies: headache(s) Psych: Reports: anxiety PFSH ED PFSH: Medical History Other stimulant dependence with stimulant-induced mood disorder Methamphetamines Marijuana dependence Nicotine use disorder Psychiatric care No pertinent family history Social History Smoking and tobacco/nicotine status: current every day tobacco/nicotine user cigarettes Quit status (tobacco/nicotine): not considering quitting Second hand smoke exposure: Yes Alcohol intake: former Substance/Drug Use: former Adopted: Yes Housing: Homeless Number of children: 2 Highest education level completed: High School Graduate service: Yes Current occupational status: disabled Current occupational exposures/hazards: No Casandra/Roman Catholic: Orthodox Special casandra needs: No Physical Exam Narrative: EXAM NARRATIVE: Awake and alert 34-year-old male in no acute distress Const: COMMON NORMALS: no acute distress, average body habitus, alert and well nourished EXAM LIMITATIONS: no altered mental status GENERAL APPEARANCE: cooperative ORIENTATION/CONSCIOUSNESS: Yes awake HENMT: COMMON NORMALS: normocephalic and atraumatic HEAD & SCALP: normocephalic and atraumatic Eye: COMMON NORMALS: conjunctivae normal CONJUNCTIVA: Yes conjunctivae normal Neck/C-Spine: GENERAL: Yes normal visual inspection Resp: COMMON NORMALS: normal respiratory effort, No retractions and No use of accessory muscles Cardio: COMMON NORMALS: regular rhythm RHYTHM: regular rhythm Extremity: COMMON NORMALS: full ROM Neuro: SENSORIUM/ORIENTATION: Yes alert Psych: COMMON NORMALS: mental status grossly normal and cooperative Skin: COMMON NORMALS: no rashes or lesions noted GENERAL SKIN EXAM: no rashes or lesions noted Course Vital Signs: Vital signs: Vital Signs Temperature 98.7 F 01/02/25 13:36 Pulse Rate 115 H 01/02/25 13:36 Respiratory Rate 18 01/02/25 13:36 Blood Pressure 148/78 01/02/25 13:36 Pulse Oximetry 98 01/02/25 13:36 MDM - Anxiety Medical Decision Making Patient is a nontoxic 34-year-old male with a reported history of anxiety who is out of his alprazolam that he takes 4 times daily for a total of 4 mg/day. I do not feel that alprazolam is the most reasonable medication and has high abuse potential. I am comfortable prescribing him a few doses of clonazepam. Conversion would be approximately 0.5 mg of clonazepam twice daily. He will be given a first dose of clonazepam here and I will write a prescription for a couple of more tablets to get him through tomorrow. He states he will be following up with his specialist on the third. No radiology studies performed this visit Discharge Plan Discharge Patient Disposition: Home Clinical Impression: Anxiety, Benzodiazepine dependence Condition: Stable Prescriptions: New clonazepam [Klonopin] 0.5 mg tablet 0.5 mg PO BID Qty: 4 0RF No Action alprazolam 1 mg tablet 1 mg PO Q6H albuterol sulfate 90 mcg/actuation HFA aerosol inhaler 2 inh INHALATION Q4H PRN (Reason: shortness of breath or wheezing) Qty: 18 0RF Discharge Orders: Discharge ED (Routine); Ordered 01/02/25 Ordered By: Feroz Rae Discharge Activity: Resume usual activity Patient Instructions: Deprescribing Opioids and Benzodiazepines (ED), Opioid Safety, Pain Management Activity Restrictions/Additional Instructions: Take medication as prescribed. Follow-up with your primary care provider for routine management of benzodiazepines and anxiety. Return to the ER for any concerns. Print Language: Lithuanian Coding Level of Care Code ED Experimental Plastics Fabricator for Meche Vásquez
[2025-01-02] MEDS: CLONazepam 0.5 mg Tablet PO (14:02)
== END 2025-01-02 14:10 | disposition home or self-care (01) ==
PROVIDERS: Emergency Provider Student in an Organized Health Care Education/Training Program
DX: F41.9 Anxiety disorder, unspecified (principal); F13.20 Sedative, hypnotic or anxiolytic dependence, uncomplicated; F17.210 Nicotine dependence, cigarettes, uncomplicated
CPT/HCPCS: 99283

== ENCOUNTER 2025-02-26 14:36 | Inpatient (IN) | payer BC, MEDICAID, SELFPAY ==
[2024-08-04 16:30] VITALS: BP 114/71; BMI 23.7
--- NOTE | 2025-02-26 14:43 | W.ED.PSYCHS ---
HPI - Psych General: Chief Complaint: Psychiatric Symptoms Stated Complaint: SI Time Seen by Provider: 02/26/25 14:38 Source: patient Mode of arrival: ambulatory Limitations: no limitations History of Present Illness: Patient is a 34-year-old male presents to ED today stating he has thoughts of wanting to kill himself. He does not really elaborate on this much further. He states he is depressed. He has no specific plan. He states he has felt like this for a few days. Does not endorse any enticing event to make him feel this way. He denies drug or alcohol use. He states he does not have any services outpatient that he utilizes through [facility] or counseling/therapy. He states his only medication is Klonopin for anxiety. MD complaint: suicidal ideation and feels depressed Onset (ago): day(s) Duration: constant History of same: Yes Relieving factors: none Exacerbating factors: none Associated psychiatric symptoms: depression and suicidal ideation Associated symptoms: Reports depression and suicidal ideation; Deny auditory hallucinations, visual hallucinations or homicidal ideation Treatments prior to arrival: none Related Data Previous Rx's ?Medication ?Instructions ?Recorded clonazepam 0.5 mg tablet (Klonopin) 0.5 mg PO BID #4 tabs 01/02/25 Allergies Allergy/AdvReac Type Severity Reaction Status Date / Time No Known Allergies Allergy Verified 08/03/24 10:05 Review of Systems Const: Denies: fever(s) or chills Card: Denies: chest pain, palpitations, lightheadedness or syncope Resp: Denies: dyspnea GI: Denies: abdominal pain, nausea, vomiting or diarrhea Skin/Breast: Denies: rash Neuro: Denies: headache(s) Psych: Reports: anxiety, depression and suicidal ideation; Denies: visual hallucinations, auditory hallucinations or homicidal ideation [facility] ED PFSH: Medical History Other stimulant dependence with stimulant-induced mood disorder Methamphetamines Marijuana dependence Nicotine use disorder Psychiatric care No pertinent family history Social History Smoking and tobacco/nicotine status: current every day tobacco/nicotine user cigarettes Quit status (tobacco/nicotine): not considering quitting Second hand smoke exposure: Yes Alcohol intake: former Substance/Drug Use: former Adopted: Yes Housing: Homeless Number of children: 2 Highest education level completed: High School Graduate service: Yes Current occupational status: disabled Current occupational exposures/hazards: No Casandra/Yazdanism: Temple Special casandra needs: No Physical Exam Const: COMMON NORMALS: no acute distress, average body habitus, patient oriented x3, no limitations, healthy appearing, alert and well nourished GENERAL APPEARANCE: cooperative Resp: COMMON NORMALS: normal respiratory effort and clear to auscultation bilaterally AUSCULTATION: clear to auscultation bilaterally Cardio: COMMON NORMALS: regular rate and regular rhythm RATE: regular rate RHYTHM: regular rhythm Neuro: YASMIN COMA SCALE: document GCS findings Yasmin coma scale eye opening: Spontaneous [place] coma scale verbal response: Orientated Yasmin coma scale motor response: Obey commands [place] coma scale total score: 15 COMMON NORMALS: patient oriented x3 SENSORIUM/ORIENTATION: Yes alert Psych: COMMON NORMALS: mental status grossly normal, Normal thought process present, cooperative, normal affect, activity/motor behavior normal, denies hallucinations and denies homicidal ideation APPEARANCE: Yes grossly normal ATTITUDE: Yes calm ACTIVITY/MOTOR BEHAVIOR: No psychomotor agitation and Yes Avoids eye contact (attititude/behavior) SPEECH: Yes slow MOOD & AFFECT: Yes euthymic mood THOUGHT PROCESS: Normal thought process present THOUGHT CONTENT: Yes Suicidality present ATTENTION/CONCENTRATION: Yes attention grossly intact and Yes concentration grossly intact MEMORY/COGNITION: Yes memory grossly intact and Yes cognition grossly intact INSIGHT: Fair insight present (Psych) JUDGEMENT: Fair judgement present (Psych) Course Consultations: Consultation #1: Dr. Salinas-accepts to NPU Vital Signs: Vital signs: Vital Signs Temperature 98.1 F 02/26/25 14:47 Pulse Rate 120 H 02/26/25 14:47 Respiratory Rate 18 02/26/25 14:47 Blood Pressure 116/70 02/26/25 14:47 Pulse Oximetry 97 02/26/25 14:47 Oxygen Delivery Me thod Room Air 02/26/25 14:47 MDM - Psych Medical Decision Making Patient will be admitted to NPU for treatment of his depression and suicidal ideations. Will place affidavit on his chart. Medical Records I reviewed the patient's medical records. Lab Data I reviewed the patient's lab results. 02/26/25 14:29 02/26/25 14:29 Laboratory Results Sodium 141 mmol/L (136-145) 02/26/25 14:29 Potassium 4.5 mmol/L (3.5-5.1) 02/26/25 14: Chloride 104 mmol/L (98-107) 02/26/25 14: Carbon Dioxide 26 mmol/L (22-29) 02/26/25 14: Anion Gap 15.5 (5-19) 02/26/25 14: BUN 11 mg/dL (6-20) 02/26/25 14: Creatinine 0.9 mg/dL (0.7-1.2) 02/26/25 14:29 GFR Calculation 97.2 mL/min (90-130) 02/26/25 14: Glucose 127 mg/dL (65-115) H 02/26/25 14: Calculated Osmolality 293 mOsm/kg (285-295) 02/26/25 14: Calcium 9.2 mg/dL (8.5-10.5) 02/26/25 14: Total Bilirubin 0.5 mg/dL (0.15-1.2) 02/26/25 14:29 AST 38 U/L (0-40) 02/26/25 14:29 ALT 38 U/L (0-41) 02/26/25 14:29 Alkaline Phosphatase 80 U/L (40-130) 02/26/25 14: Total Protein 7.4 g/dL (6.6-8.7) 02/26/25 14: Albumin 4.3 g/dL (3.5-5.2) 02/26/25 14: Globulin 3.1 g/dL (1.3-4.6) 02/26/25 14: Salicylates 1.9 mg/dL (3-10) L 02/26/25 14:29 Acetaminophen < 5.0 ug/mL (10-30) L 02/26/25 14:29 Ethyl Alcohol < 10 mg/dL (0-10) 02/26/25 14: No radiology studies performed this visit Discharge Plan Discharge Patient Disposition: Admitted As Inpatient Clinical Impression: Depression, Suicidal ideation Condition: Stable Prescriptions: No Action clonazepam [Klonopin] 0.5 mg tablet 0.5 mg PO BID Qty: 4 0RF Patient Instructions: Opioid Safety, Pain Management Print Language: Mongolian Coding Level of Care Code ED Die Tester for Meche Vásquez
[2025-02-26 14:47] VITALS: BP 116/70; PULSE 120; RESP 18; TEMP 36.7; O2SAT 97
[2025-02-26 14:56] LABS: Basophils # 0.1 10^3/uL (0.0-0.1); Basophils % 0.5 %; Eosinophils # 0.1 10^3/uL (0.0-0.8); Eosinophils % 0.4 %; Hematocrit 46.4 % (37-53); Lymphocytes # 5.6 10^3/uL (0.8-4.8); Lymphocytes % 37.9 %; Mean Corpuscular HGB Conc 33.2 g/dL (30-55); Mean Corpuscular Hemoglobin 29.7 pg (27-33); Mean Corpuscular Volume 89.6 fl (82-101); Mean Platelet Volume 11.1 fL (7.4-10.4); Monocytes % 6.6 %; Neutrophils # 7.95 10^3/uL (1.8-7.7); Neutrophils % 54.3 %; Nucleated Red Blood Cells % 0 %; Platelet Count 223 10^3/cmm (157-399); Red Blood Count 5.18 10^6/uL (3.85-5.65); Red Cell Distribution Width 13.5 % (12.1-15.1); White Blood Count 14.64 10^3/uL (3.29-11.43)
[2025-02-26 15:12] LABS: Alanine Aminotransferase 38 U/L (0-41); Albumin Level 4.3 g/dL (3.5-5.2); Alkaline Phosphatase 80 U/L (40-130); Anion Gap 15.5 (5-19); Aspartate Amino Transferase 38 U/L (0-40); Blood Urea Nitrogen 11 mg/dL (6-20); Calcium 9.2 mg/dL (8.5-10.5); Carbon Dioxide 26 mmol/L (22-29); Chloride 104 mmol/L (98-107); Globulin 3.1 g/dL (1.3-4.6); Glomerular Filtration Rate 97.2 mL/min (90-130); Glucose 127 mg/dL (65-115); Osmolality Calculated 293 mOsm/kg (285-295); Potassium 4.5 mmol/L (3.5-5.1); Salicylate 1.9 mg/dL (3-10); Sodium 141 mmol/L (136-145); Total Bilirubin 0.5 mg/dL (0.15-1.2); Total Protein 7.4 g/dL (6.6-8.7)
[2025-02-26 15:28] LABS: Acetaminophen < 5.0 ug/mL (10-30); Alcohol Level < 10 mg/dL (0-10)
[2025-02-26 15:48] LABS: Slide Review Slide Review Perform
[2025-02-26 16:03] LABS: Amphetamines Screen Urine Positive (Negative); Barbiturates Screen Urine Negative (Negative); Benzodiazepines Screen Urine Negative (Negative); Cocaine Screen Urine Negative (Negative); Opiate Screen Urine Negative (Negative); PCP Screen Urine Negative (Negative); THC Screen Urine Positive (Negative)
[2025-02-26 16:31] VITALS: BP 115/67; BP 121/73; PULSE 109; PULSE 112; RESP 16; TEMP 37.2; O2SAT 97; O2SAT 98
[2025-02-26 16:33] VITALS: BP 121/73; PULSE 112; O2SAT 98
--- NOTE | 2025-02-26 17:08 | PC.ADMIT ---
Homeless Admission Note:Pt came to ER with SI without a plan. He states that he is currently homeless. He did test positive for meth in the ER. He states that he last used approximately two days ago. Pt has no additional concerns at this time. He remains flat and guarded during the assessment. His answers are short and brief. He does not elaborate on anything. The patient,Chuy Valenzuela,34 y/o, was given written information regarding hospital policies, unit procedures and contact persons. Patient's smoking status: current every day smoker. Vital Signs - 8 hr 02/26/25 14:47 02/26/25 16:31 02/26/25 16:31 Temperature 98.1 F 99 F Pulse Rate 120 H 112 H 109 H Respiratory Rate 18 16 Blood Pressure 116/70 121/73 115/67 Pulse Oximetry 97 98 97 Oxygen Delivery Method Room Air Room Air Room Air 02/26/25 16:33 Temperature Pulse Rate 112 H Respiratory Rate Blood Pressure 121/73 Pulse Oximetry 98 Oxygen Delivery Method
[2025-02-26] MEDS: nicotine 4 mg lozenge MUCOUS MEM (19:43)
[2025-02-26 20:55] VITALS: BP 123/81; PULSE 74; RESP 18; TEMP 36.9; O2SAT 100
[2025-02-27 06:00] VITALS: BP 111/67; PULSE 79; RESP 16; TEMP 37; O2SAT 98
--- NOTE | 2025-02-27 12:50 | P.NPUHP_ITS ---
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 impaired.. Vitals/I&O/Wt Last Vital Signs Temp 98.6 F 02/27/25 06:00 Pulse 79 02/27/25 06:00 Resp 16 02/27/25 06:00 BP 111/67 02/27/25 06:00 Pulse Ox 98 02/27/25 06:00 O2 Del Method Room Air 02/27/25 06:00 Data NPU 02/26/25 14:29 02/26/25 14:29 A&P Assessment and plan (1) Acute psychosis: (2) Depression: (3) Cannabis abuse: (4) Drug-induced psychotic disorder with delusions: (5) Substance induced mood disorder: (6) Methamphetamine abuse: (7) Suicidal ideation: (8) Chronic schizophrenia: Plan This is a 34-year-old white male who presents inpatient for the first time since May of last year with essentially the same presentation with active addiction and history of significant psychosis with depression and homicidal ideation reported on admission who presents now positive for Meth and THC. 1. Continue current medication. 2. Continue every 15 minute checks for safety. 3. Encourage individual, group and milieu therapy. 4. Encourage sober living treatment at the highest level of care to which he is willing to commit. 5. Gather collateral information. 6. Evaluate against the backdrop of 96 hour hold PDMP PDMP Reviewed: Not Reviewed Involuntary Hold Information 2 96 Hour Hold: 96 Hour Involuntary Admission: No Attestations NPU 2 Medical Necessity Statement*: Inpatient hospitalization is medically necessary and the clinically appropriate intervention at this time. We will monitor medications and make changes as indicated. He will be in the hospital for over 2 midnights. Likely length of stay 3-5 days. Coding Level of Care Code Acute Code for [facility] Fwd Diagnoses Acute psychosis F23 Depression F32.A Cannabis abuse F12.10 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
[2025-02-27 14:00] VITALS: BP 116/73; PULSE 77; RESP 16; TEMP 36.9; O2SAT 97
[2025-02-27] MEDS: nicotine 4 mg lozenge MUCOUS MEM (19:18)
[2025-02-27 20:34] VITALS: BP 115/76; PULSE 100; RESP 18; TEMP 36.8; O2SAT 97
[2025-02-28 06:00] VITALS: BP 113/76; PULSE 76; RESP 18; O2SAT 99
[2025-02-28] MEDS: nicotine 4 mg lozenge MUCOUS MEM ×4 (12:43→18:49)
[2025-02-28 14:00] VITALS: BP 119/80; PULSE 89; RESP 18; TEMP 36.7; O2SAT 96
--- NOTE | 2025-02-28 17:09 | P.NPUPN_ITS ---
Subjective NPU 2 Subjective: Patient presented today reporting that he is feeling better. He seems less guarded per staff reports and direct observation. He reports that he has some contacts in the sober living community and he has made some calls and is hoping to be discharged soon to 1 of these options. We discussed the importance of what ever option he is found to be something that is moving his sobriety forward and not just a way to get out of the hospital, rinse and repeat. Mental Status Exam 2 MSE Comments: This is a well-nourished, well-developed white male in hospital scrubs with adequate grooming and intense eye contact. No abnormal movements except for mild psychomotor agitation. Cooperative with exam in no acute distress. Speech was normal rate and volume. Mood described as better today, affect congruent. Thought process was mostly organized. Thought content: Patient denies suicidal or homicidal ideation, there were no delusions reported or noted, patient denied suicidal ideation or homicidal ideation. Attention and concentration appeared intact and memory appeared mostly intact but none formally tested. He is alert and oriented x 3. Insight and judgment are limited and impulse control is impaired.. Vitals/I&O/Wt Last Vital Signs Temp 98.0 F 02/28/25 22:00 Pulse 78 02/28/25 22:00 Resp 18 02/28/25 22:00 BP 114/74 02/28/25 22:00 Pulse Ox 96 02/28/25 22:00 O2 Del Method Room Air 02/27/25 06:00 Weight last 48 hrs Weight 69.853 kg Data NPU 02/26/25 14:29 02/26/25 14:29 A&P Assessment and plan (1) Acute psychosis: (2) Depression: (3) Cannabis abuse: (4) Drug-induced psychotic disorder with delusions: (5) Substance induced mood disorder: (6) Methamphetamine abuse: (7) Suicidal ideation: (8) Chronic schizophrenia: Plan This is a 34-year-old white male who presents inpatient for the first time since May of last year with essentially the same presentation with active addiction and history of significant psychosis with depression and homicidal ideation reported on admission who presents now positive for Meth and THC. 1. Continue current medication. Recommend antipsychotic. 2. Continue every 15 minute checks for safety. 3. Encourage individual, group and milieu therapy. 4. Encourage sober living treatment at the highest level of care to which he is willing to commit. 5. Gather collateral information. 6. Evaluate against the backdrop of 96 hour hold PDMP PDMP Reviewed: Not Reviewed Involuntary Hold Information 2 96 Hour Hold: 96 Hour Involuntary Admission: No Attestations NPU 2 Medical Necessity Statement*: Inpatient hospitalization is medically necessary and the clinically appropriate intervention at this time. We will monitor medications and make changes as indicated. Likely length of stay 2-4 days. Coding Level of Care Code Acute Code for [facility] Fwd Diagnoses Acute psychosis F23 Depression F32.A Cannabis abuse F12.10 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
[2025-02-28] MEDS: trazodone 50 mg Tablet PO (20:04)
[2025-02-28 22:00] VITALS: BP 114/74; PULSE 78; RESP 18; TEMP 36.7; O2SAT 96
[2025-03-01 06:00] VITALS: BP 106/71; PULSE 72; RESP 18; O2SAT 95
[2025-03-01 14:00] VITALS: BP 108/76; PULSE 79; RESP 18; TEMP 36.6; O2SAT 99
[2025-03-01] MEDS: nicotine 4 mg lozenge MUCOUS MEM ×2 (15:14→21:56)
--- NOTE | 2025-03-01 17:31 | P.NPUPN_ITS ---
Subjective NPU 2 Subjective: Patient presented today reporting that things are all right and much better than they were when he was admitted. He continues to work with the social work team on possible options for sober living treatment and discharge. He denies any major complaints at this point and denies any side effects of the medication. Mental Status Exam 2 MSE Comments: This is a well-nourished, well-developed white male in hospital scrubs with adequate grooming and intense eye contact. No abnormal movements except for mild psychomotor agitation. Cooperative with exam in no acute distress. Speech was normal rate and volume. Mood described as better today, affect congruent. Thought process was mostly organized. Thought content: Patient denies suicidal or homicidal ideation, there were no delusions reported or noted, patient denied suicidal ideation or homicidal ideation. Attention and concentration appeared intact and memory appeared mostly intact but none formally tested. He is alert and oriented x 3. Insight and judgment are limited and impulse control is impaired.. Vitals/I&O/Wt Last Vital Signs Temp 98.2 F 03/01/25 20:43 Pulse 93 03/01/25 20:43 Resp 18 03/01/25 20:43 BP 99/66 03/01/25 20:43 Pulse Ox 98 03/01/25 20:43 O2 Del Method Room Air 03/01/25 20:43 Data NPU 02/26/25 14:29 02/26/25 14:29 A&P Assessment and plan (1) Acute psychosis: (2) Depression: (3) Cannabis abuse: (4) Drug-induced psychotic disorder with delusions: (5) Substance induced mood disorder: (6) Methamphetamine abuse: (7) Suicidal ideation: (8) Chronic schizophrenia: Plan This is a 34-year-old white male who presents inpatient for the first time since May of last year with essentially the same presentation with active addiction and history of significant psychosis with depression and homicidal ideation reported on admission who presents now positive for Meth and THC. 1. Continue current medication. Recommend antipsychotic. 2. Continue every 15 minute checks for safety. 3. Encourage individual, group and milieu therapy. 4. Encourage sober living treatment at the highest level of care to which he is willing to commit. 5. Gather collateral information. 6. Evaluate against the backdrop of 96 hour hold PDMP PDMP Reviewed: Not Reviewed Involuntary Hold Information 2 Hold Status: Date/Time Hold Expires: voluntary 96 Hour Hold: 96 Hour Involuntary Admission: No Attestations NPU 2 Medical Necessity Statement*: Inpatient hospitalization is medically necessary and the clinically appropriate intervention at this time. We will monitor medications and make changes as indicated. Likely length of stay 1-3 days. Coding Level of Care Code Acute Code for [facility] Fwd Diagnoses Acute psychosis F23 Depression F32.A Cannabis abuse F12.10 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
[2025-03-01 20:43] VITALS: BP 99/66; PULSE 93; RESP 18; TEMP 36.8; O2SAT 98
[2025-03-02 06:00] VITALS: BP 105/77; PULSE 77; RESP 18; O2SAT 98
[2025-03-02] MEDS: nicotine 4 mg lozenge MUCOUS MEM ×6 (07:53→22:15)
[2025-03-02 14:00] VITALS: BP 108/66; PULSE 84; RESP 16; TEMP 36.8; O2SAT 98
--- NOTE | 2025-03-02 15:03 | W.PM.NPUPNS ---
Subjective NPU Subjective: Patient presented today reporting that things are going well. He discussed the fact that he has a list of places that are sober living opportunities that he has called many of them. He reports he has several left the call but he has not had any luck. He reports a desire to not return to the same homeless addicted reality that he had been in before and we discussed him working with the social work team to look at different options for residential treatment. He denied any side effects to medication. Mental Status Exam MSE Comments: This is a well-nourished, well-developed white male in hospital scrubs with adequate grooming and intense eye contact. No abnormal movements except for mild psychomotor agitation. Cooperative with exam in no acute distress. Speech was normal rate and volume. Mood described as better today, affect congruent. Thought process was mostly organized. Thought content: Patient denies suicidal or homicidal ideation, there were no delusions reported or noted, patient denied suicidal ideation or homicidal ideation. Attention and concentration appeared intact and memory appeared mostly intact but none formally tested. He is alert and oriented x 3. Insight and judgment are limited and impulse control is impaired.. Vitals/I&O/Wt Last Vital Signs Temp 98.2 F 03/01/25 20:43 Pulse 77 03/02/25 06:00 Resp 18 03/02/25 06:00 BP 105/77 03/02/25 06:00 Pulse Ox 98 03/02/25 06:00 O2 Del Method Room Air 03/02/25 06:00 Data NPU 02/26/25 14:29 02/26/25 14:29 A&P Assessment and plan (1) Acute psychosis: (2) Depression: (3) Cannabis abuse: (4) Drug-induced psychotic disorder with delusions: (5) Substance induced mood disorder: (6) Methamphetamine abuse: (7) Suicidal ideation: (8) Chronic schizophrenia: Plan This is a 34-year-old white male who presents inpatient for the first time since May of last year with essentially the same presentation with active addiction and history of significant psychosis with depression and homicidal ideation reported on admission who presents now positive for Meth and THC. 1. Continue current medication. Recommend antipsychotic. 2. Continue every 15 minute checks for safety. 3. Encourage individual, group and milieu therapy. 4. Encourage sober living treatment at the highest level of care to which he is willing to commit. 5. Gather collateral information. 6. Evaluate against the backdrop of 96 hour hold PDMP PDMP Reviewed: Not Reviewed Involuntary Hold Information Hold Status: Date/Time Hold Expires: voluntary 96 Hour Hold: 96 Hour Involuntary Admission: No Attestations NPU Medical Necessity Statement*: Inpatient hospitalization is medically necessary and the clinically appropriate intervention at this time. We will monitor medications and make changes as indicated. Likely length of stay 1-3 days. Coding Level of Care Code Acute Code for [facility] Fwd Diagnoses Acute psychosis F23 Depression F32.A Cannabis abuse F12.10 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
[2025-03-02 19:37] VITALS: BP 135/78; PULSE 92; RESP 18; TEMP 37; O2SAT 97
[2025-03-03] MEDS: nicotine 4 mg lozenge MUCOUS MEM ×5 (00:18→17:53)
--- NOTE | 2025-03-03 00:53 | PC.NURSE ---
when doing 15 min rounds. pt jumped out of bed and told this remote mortgage underwriter to leave him the fuck alone and tried to shut door on this remote mortgage underwriter this remote mortgage underwriter told pt that he could not have door shut and that it had to be open for his safety
[2025-03-03 06:00] VITALS: BP 106/62; PULSE 60; RESP 17; O2SAT 97
--- NOTE | 2025-03-03 13:39 | W.PM.NPUPNS ---
Subjective NPU Subjective: Patient presented today reporting that he is doing okay. He reports he did have an opportunity to talk to the social work team about planning moving forward and sideration of any [facility] resources. He endorses they are working on some options but he is somewhat pessimistic about whether things are going to transpire in a positive way before discharge because of how things have gone previously. He reports a desire to be sober but also appreciates the ambivalence of his feelings. Mental Status Exam MSE Comments: This is a well-nourished, well-developed white male in hospital scrubs with adequate grooming and intense eye contact. No abnormal movements except for mild psychomotor retardation. Cooperative with exam in no acute distress. Speech was normal rate and volume. Mood described as better today, affect congruent. Thought process was mostly organized. Thought content: Patient denies suicidal or homicidal ideation, there were no delusions reported or noted, patient denied suicidal ideation or homicidal ideation. Attention and concentration appeared intact and memory appeared mostly intact but none formally tested. He is alert and oriented x 3. Insight and judgment are limited and impulse control is impaired. Vitals/I&O/Wt Last Vital Signs Temp 98.6 F 03/02/25 19:37 Pulse 60 03/03/25 06:00 Resp 17 03/03/25 06:00 BP 106/62 03/03/25 06:00 Pulse Ox 97 03/03/25 06:00 O2 Del Method Room Air 03/02/25 14:00 Data NPU 02/26/25 14:29 02/26/25 14:29 A&P Assessment and plan (1) Acute psychosis: (2) Depression: (3) Cannabis abuse: (4) Drug-induced psychotic disorder with delusions: (5) Substance induced mood disorder: (6) Methamphetamine abuse: (7) Suicidal ideation: (8) Chronic schizophrenia: Plan This is a 34-year-old white male who presents inpatient for the first time since May of last year with essentially the same presentation with active addiction and history of significant psychosis with depression and homicidal ideation reported on admission who presents now positive for Meth and THC. 1. Continue current medication. Recommend antipsychotic. 2. Continue every 15 minute checks for safety. 3. Encourage individual, group and milieu therapy. 4. Encourage sober living treatment at the highest level of care to which he is willing to commit. 5. Gather collateral information. 6. Evaluate against the backdrop of 96 hour hold PDMP PDMP Reviewed: Not Reviewed Involuntary Hold Information Hold Status: Date/Time Hold Expires: voluntary 96 Hour Hold: 96 Hour Involuntary Admission: No Attestations NPU Medical Necessity Statement*: Inpatient hospitalization is medically necessary and the clinically appropriate intervention at this time. We will monitor medications and make changes as indicated. Likely length of stay 1-3 days. Coding Level of Care Code Acute Code for [facility] Fwd Diagnoses Acute psychosis F23 Depression F32.A Cannabis abuse F12.10 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
[2025-03-03 14:00] VITALS: BP 145/74; PULSE 88; RESP 16; TEMP 37.1; O2SAT 98
[2025-03-03 20:09] VITALS: BP 124/82; PULSE 103; RESP 18; TEMP 37.2; O2SAT 98
[2025-03-04] MEDS: nicotine 4 mg lozenge MUCOUS MEM ×6 (01:19→21:32)
[2025-03-04 06:00] VITALS: BP 108/64; PULSE 76; RESP 16; O2SAT 98
[2025-03-04 14:00] VITALS: BP 107/68; PULSE 105; RESP 16; TEMP 36.8; O2SAT 97
--- NOTE | 2025-03-04 17:16 | W.PM.NPUPNS ---
Subjective NPU Subjective: Patient presented today reporting that he is doing okay. He is working with the social work team for possible rehab placement. [facility] reports [facility] him [facility] if she goes through addiction treatment. He continues to be ambivalent about his relationship with methamphetamine and other drugs feeling that he has learned to control things to some degree and a decade he has been using this substance. We discussed how many times people feel that way only to find themselves back in a hole. We discussed that if he were really in control of things that he would likely not be homeless. We discussed the risks, benefits and alternatives of some antianxiety agents and he understood and agreed to proceed as is documented in this note. Mental Status Exam MSE Comments: This is a well-nourished, well-developed white male in hospital scrubs with adequate grooming and intense eye contact. No abnormal movements except for mild psychomotor retardation. Cooperative with exam in no acute distress. Speech was normal rate and volume. Mood described as better today, affect congruent. Thought process was mostly organized. Thought content: Patient denies suicidal or homicidal ideation, there were no delusions reported or noted, patient denied suicidal ideation or homicidal ideation. Attention and concentration appeared intact and memory appeared mostly intact but none formally tested. He is alert and oriented x 3. Insight and judgment are limited and impulse control is impaired. Vitals/I&O/Wt Last Vital Signs Temp 98.8 F 03/04/25 22:00 Pulse 91 03/04/25 22:00 Resp 18 03/04/25 22:00 BP 114/73 03/04/25 22:00 Pulse Ox 97 03/04/25 22:00 O2 Del Method Room Air 03/04/25 22:00 Data NPU 02/26/25 14:29 02/26/25 14:29 A&P Assessment and plan (1) Acute psychosis: (2) Depression: (3) Cannabis abuse: (4) Drug-induced psychotic disorder with delusions: (5) Substance induced mood disorder: (6) Methamphetamine abuse: (7) Suicidal ideation: (8) Chronic schizophrenia: Plan This is a 34-year-old white male who presents inpatient for the first time since May of last year with essentially the same presentation with active addiction and history of significant psychosis with depression and homicidal ideation reported on admission who presents now positive for Meth and THC. 1. Continue current medication. Recommend antipsychotic. Patient reports being interested in an antianxiety medication but we discussed that benzodiazepines do not make clinical sense given his situation. 2. Continue every 15 minute checks for safety. 3. Encourage individual, group and milieu therapy. 4. Encourage sober living treatment at the highest level of care to which he is willing to commit. 5. Gather collateral information. 6. Evaluate against the backdrop of 96 hour hold. Tentative plan for discharge tomorrow. PDMP PDMP Reviewed: Not Reviewed Involuntary Hold Information Hold Status: Date/Time Hold Expires: voluntary 96 Hour Hold: 96 Hour Involuntary Admission: No Attestations NPU Medical Necessity Statement*: Inpatient hospitalization is medically necessary and the clinically appropriate intervention at this time. We will monitor medications and make changes as indicated. Likely length of stay 1-2 days. Coding Level of Care Code Acute Code for [facility] Fwd Diagnoses Acute psychosis F23 Depression F32.A Cannabis abuse F12.10 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
[2025-03-04 22:00] VITALS: BP 114/73; PULSE 91; RESP 18; TEMP 37.1; O2SAT 97
[2025-03-05 06:00] VITALS: BP 105/59; PULSE 74; RESP 16; O2SAT 98
[2025-03-05] MEDS: nicotine 4 mg lozenge MUCOUS MEM ×3 (07:52→14:03)
--- NOTE | 2025-03-05 12:35 | PC.NURSE ---
Patient number is [phone]
[2025-03-05 14:00] VITALS: RESP 18
[2025-03-05 16:42] VITALS: BP 134/72; PULSE 79; RESP 16; TEMP 36.8; O2SAT 99
== END 2025-03-05 17:39 | disposition home or self-care (01) | DRG 885 ==
LOC: ER 15:37 → NP 15:42
PROVIDERS: Admitting Provider Psychiatry & Neurology Psychiatry; Emergency Provider Physician Assistant; Visit Provider Psychiatry & Neurology Psychiatry
DX: F20.9 Schizophrenia, unspecified (principal); F15.20 Other stimulant dependence, uncomplicated; Z59.00 Homelessness unspecified; R45.851 Suicidal ideations; F32.A Depression, unspecified; F12.10 Cannabis abuse, uncomplicated
CPT/HCPCS: 36415; 80053; 80306; 80307; 85025; 97165; 99285; J9999

== ENCOUNTER 2025-04-05 17:02 | Inpatient (IN) | payer BC, MEDICAID, SELFPAY ==
[2024-08-04 16:30] VITALS: BP 114/71; BMI 23.7
[2025-04-05 17:04] VITALS: BP 119/89; PULSE 106; RESP 16; TEMP 37.1; O2SAT 97
--- NOTE | 2025-04-05 17:16 | ED.C_ITS ---
HPI - Psych 2 General: Chief Complaint: Psychiatric Symptoms Stated Complaint: SI Time Seen by Provider: 04/05/25 17:09 Source: patient Mode of arrival: ambulatory Limitations: no limitations History of Present Illness: Patient is a 34-year-old male presents to ED today stating he is depressed and suicidal. Patient states he is homeless and is tired of living on the streets . States he has resided in a tent over the past 7 years. Patient states he has used drugs twice over the past few weeks. Patient was just discharged from [facility] about a month ago. He was recommended to go to drug rehabilitation at time of discharge but he declined. Patient states he is ready to go now. States he has a history of anxiety. He has been on several medications in the past which apparently do not seem to help. MD complaint: suicidal ideation and feels depressed Onset (ago): week(s) (2 weeks) Duration: constant History of same: Yes Relieving factors: none Exacerbating factors: none Context: recent drug abuse Associated psychiatric symptoms: depression and suicidal ideation Associated symptoms: Reports depression and suicidal ideation; Deny auditory hallucinations, visual hallucinations or homicidal ideation Treatments prior to arrival: none If self harm: admits thoughts of self harm Related Data Previous Rx's ?Medication ?Instructions ?Recorded clonazepam 0.5 mg tablet (Klonopin) 0.5 mg PO BID #4 t abs 01/02/25 Allergies Allergy/AdvReac Type Severity Reaction Status Date / Time No Known Allergies Allergy Verified 08/03/24 10:05 Review of Systems 2 Const: Denies: fever(s) or chills Card: Denies: chest pain, palpitations, lightheadedness or syncope Resp: Denies: dyspnea GI: Denies: abdominal pain, nausea, vomiting or diarrhea Skin/Breast: Denies: rash Neuro: Denies: headache(s) Psych: Reports: depression and suicidal ideation; Denies: anxiety, visual hallucinations, auditory hallucinations or homicidal ideation PFSH ED 2 PFSH: Medical History COVID-19 stable for discharge from medicine standpoint, per Dr Rose Other stimulant dependence with stimulant-induced mood disorder Methamphetamines Marijuana dependence Nicotine use disorder Psychiatric care No pertinent family history Social History Smoking and tobacco/nicotine status: current every day tobacco/nicotine user cigarettes Quit status (tobacco/nicotine): not considering quitting Second hand smoke exposure: Yes Alcohol intake: former Substance/Drug Use: former Adopted: Yes Housing: Homeless Number of children: 2 Highest education level completed: High School Graduate service: Yes Current occupational status: disabled Current occupational exposures/hazards: No Casandra/Jewish: Jew Special casandra needs: No Physical Exam 2 Const: COMMON NORMALS: no acute distress, average body habitus, patient oriented x3, no limitations, healthy appearing, alert and well nourished G ENERAL APPEARANCE: cooperative Resp: COMMON NORMALS: normal respiratory effort and clear to auscultation bilaterally AUSCULTATION: clear to auscultation bilaterally Cardio: COMMON NORMALS: regular rate and regular rhythm RATE: regular rate RHYTHM: regular rhythm Neuro: COMMON NORMALS: patient oriented x3 SENSORIUM/ORIENTATION: Yes alert Psych: COMMON NORMALS: mental status grossly normal, Normal thought process present, cooperative, normal affect, speech normal, activity/motor behavior normal, denies hallucinations and denies homicidal ideation APPEARANCE: Yes grossly normal ATTITUDE: Yes calm ACTIVITY/MOTOR BEHAVIOR: Yes appropriate eye contact and No psychomotor agitation SPEECH: Yes normal speech MOOD & AFFECT: Yes euthymic mood THOUGHT PROCESS: Normal thought process present THOUGHT CONTENT: Yes Suicidality present MEMORY/COGNITION: Yes memory grossly intact and Yes cognition grossly intact INSIGHT: Good insight present (Psych) JUDGEMENT: Good judgement present (Psych) Course 2 Consultations: Consultation #1: Dr. Salinas-accepts to [facility] Vital Signs: Vital signs: Vital Signs Temperature 98.8 F 04/05/25 17:04 Pulse Rate 106 H 04/05/25 17:04 Respiratory Rate 16 04/05/25 17:04 Blood Pressure 119/89 04/05/25 17:04 Pulse Oximetry 97 04/05/25 17:04 Oxygen Delivery Me thod Room Air 04/05/25 17:04 MDM - Psych Medical Decision Making Patient will be admitted to [facility] to Dr. Salinas for treatment of his depression/suicidal ideations. Differential Diagnosis Likely suicidal ideation and depression Medical Records I reviewed the patient's medical records. Lab Data I reviewed the patient's lab results. 04/05/25 18:03 04/05/25 18:03 Laboratory Results WBC 13.36 10^3/uL (3.29-11.43) H 04/05/25 18:03 RBC 4.93 10^6/uL (3.85-5.65) 04/05/25 18:03 Hgb 14.40 g/dL (11.27-16.99) 04/05/25 18:03 Hct 44.1 % (37-53) 04/05/25 18:03 MCV 89.5 fl (82-101) 04/05/25 18:03 MCH 29.2 pg (27-33) 04/05/25 18:03 MCHC 32.7 g/dL (30-55) 04/05/25 18:03 RDW 13.6 % (12.1-15.1) 04/05/25 18:03 Plt Count 195 10^3/cmm (157-399) 04/05/25 18:03 MPV 11.9 fL (7.4-10.4) H 04/05/25 18:03 Neut % (Auto) 24.5 % 04/05/25 18:03 Lymph % (Auto) 65.9 % 04/05/25 18:03 Foard % (Auto) 8.0 % 04/05/25 18:03 Eos % (Auto) 0.4 % 04/05/25 18:03 Baso % (Auto) 0.9 % 04/05/25 18:03 Neut # (Auto) 3.27 10^3/uL (1.8-7.7) 04/05/25 18:03 Lymph # (Auto) 8.8 10^3/uL (0.8-4.8) H 04/05/25 18:03 Foard # (Auto) 1.1 10^3/uL (0.2-0.9) H 04/05/25 18:03 Eos # (Auto) 0.1 10^3/uL (0.0-0.8) 04/05/25 18:03 Baso # (Auto) 0.1 10^3/uL (0.0-0.1) 04/05/25 18:03 Nucleated RBC % (auto) 0 % 04/05/25 18:03 Nucleated RBCs # 0.0 /100WBC 04/05/25 18:03 Sodium 137 mmol/L (136-145) 04/05/25 18:03 Potassium 4.2 mmol/L (3.5-5.1) 04/05/25 18:03 Chloride 104 mmol/L (98-107) 04/05/25 18:03 Carbon Dioxide 21 mmol/L (22-29) L 04/05/25 18:03 Anion Gap 16.2 (5-19) 04/05/25 18:03 BUN 11 mg/dL (6-20) 04/05/25 18:03 Creatinine 0.7 mg/dL (0.7-1.2) 04/05/25 18:03 GFR Calculation 129.9 mL/min (90-130) 04/05/25 18:03 Glucose 118 mg/dL (65-115) H 04/05/25 18:03 Calculated Osmolality 284 mOsm/kg (285-295) L 04/05/25 18:03 Calcium 8.9 mg/dL (8.5-10.5) 04/05/25 18:03 Total Bilirubin 0.3 mg/dL (0.15-1.2) 04/05/25 18:03 AST 25 U/L (0-40) 04/05/25 18:03 ALT 34 U/L (0-41) 04/05/25 18:03 Alkaline Phosphatase 66 U/L (40-130) 04/05/25 18:03 Total Protein 7.6 g/dL (6.6-8.7) 04/05/25 18:03 Albumin 4.1 g/dL (3.5-5.2) 04/05/25 18:03 Globulin 3.5 g/dL (1.3-4.6) 04/05/25 18:03 Salicylates < 0.3 mg/dL (3-10) L 04/05/25 18:03 Acetaminophen < 5.0 ug/mL (10-30) L 04/05/25 18:03 Ethyl Alcohol < 10 mg/dL (0-10) 04/05/25 18:03 No radiology studies performed this visit Discharge Plan Discharge Patient Disposition: Admitted As Inpatient Admit Provider: Billy Salinas Clinical Impression: Depression, Suicidal ideation Condition: Stable Coding Level of Care Code ED 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
[2025-04-05 18:11] LABS: Amphetamines Screen Urine Negative (Negative); Barbiturates Screen Urine Negative (Negative); Benzodiazepines Screen Urine Negative (Negative); Cocaine Screen Urine Negative (Negative); Opiate Screen Urine Negative (Negative); PCP Screen Urine Negative (Negative); THC Screen Urine Positive (Negative)
[2025-04-05 18:28] LABS: Basophils # 0.1 10^3/uL (0.0-0.1); Basophils % 0.9 %; Eosinophils # 0.1 10^3/uL (0.0-0.8); Eosinophils % 0.4 %; Hematocrit 44.1 % (37-53); Lymphocytes # 8.8 10^3/uL (0.8-4.8); Lymphocytes % 65.9 %; Mean Corpuscular HGB Conc 32.7 g/dL (30-55); Mean Corpuscular Hemoglobin 29.2 pg (27-33); Mean Corpuscular Volume 89.5 fl (82-101); Mean Platelet Volume 11.9 fL (7.4-10.4); Monocytes # 1.1 10^3/uL (0.2-0.9); Neutrophils # 3.27 10^3/uL (1.8-7.7); Neutrophils % 24.5 %; Nucleated Red Blood Cells % 0 %; Platelet Count 195 10^3/cmm (157-399); Red Blood Count 4.93 10^6/uL (3.85-5.65); Red Cell Distribution Width 13.6 % (12.1-15.1); White Blood Count 13.36 10^3/uL (3.29-11.43)
[2025-04-05 18:42] LABS: Slide Review Slide Review Perform
[2025-04-05 18:51] LABS: Alanine Aminotransferase 34 U/L (0-41); Albumin Level 4.1 g/dL (3.5-5.2); Alkaline Phosphatase 66 U/L (40-130); Anion Gap 16.2 (5-19); Aspartate Amino Transferase 25 U/L (0-40); Blood Urea Nitrogen 11 mg/dL (6-20); Calcium 8.9 mg/dL (8.5-10.5); Carbon Dioxide 21 mmol/L (22-29); Chloride 104 mmol/L (98-107); Globulin 3.5 g/dL (1.3-4.6); Glomerular Filtration Rate 129.9 mL/min (90-130); Glucose 118 mg/dL (65-115); Osmolality Calculated 284 mOsm/kg (285-295); Potassium 4.2 mmol/L (3.5-5.1); Sodium 137 mmol/L (136-145); Total Bilirubin 0.3 mg/dL (0.15-1.2); Total Protein 7.6 g/dL (6.6-8.7)
[2025-04-05 18:53] LABS: Acetaminophen < 5.0 ug/mL (10-30); Alcohol Level < 10 mg/dL (0-10); Salicylate < 0.3 mg/dL (3-10)
[2025-04-05 19:00] VITALS: BP 111/70; PULSE 88; O2SAT 99
[2025-04-05 19:35] VITALS: BP 113/71; PULSE 93; RESP 17; TEMP 37.6; O2SAT 97
[2025-04-05] MEDS: nicotine 4 mg lozenge MUCOUS MEM (20:06)
[2025-04-05 20:22] VITALS: BP 113/71; PULSE 93; RESP 17; TEMP 37.6; O2SAT 97
[2025-04-06 06:00] VITALS: BP 102/64; PULSE 81; RESP 16; TEMP 36.8; O2SAT 94
[2025-04-06] MEDS: nicotine 4 mg lozenge MUCOUS MEM ×5 (07:51→20:31)
[2025-04-06] MEDS: CLONazepam 1 mg Tablet PO ×2 (07:52→17:54)
[2025-04-06 14:00] VITALS: BP 100/61; PULSE 86; RESP 16; TEMP 36.6; O2SAT 99
--- NOTE | 2025-04-06 15:36 | W.PM.NPUH&PS ---
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 PFS NPU PFSH: Medical History COVID-19 stable for discharge from medicine standpoint, per Dr Rose Other stimulant dependence with stimulant-induced mood disorder Methamphetamines Marijuana dependence Nicotine use disorder Psychiatric care No pertinent family history Social History Smoking and tobacco/nicotine status: current every day tobacco/nicotine user cigarettes Quit status (tobacco/nicotine): not considering quitting Second hand smoke exposure: Yes Alcohol intake: former Substance/Drug Use: former Adopted: Yes Housing: Homeless Number of children: 2 Highest education level completed: High School Graduate service: Yes Current occupational status: disabled Current occupational exposures/hazards: No Casandra/Yazidism: Church Special casandra needs: No Mental Status Exam MSE Comments: This is a well-nourished, well-developed white male in hospital scrubs with poor grooming and intense eye contact. No abnormal movements except for mild psychomotor agitation. He was cooperative with exam in no acute distress. Speech was normal rate and volume. Mood described depressed. His affect was irritable and mood incongruent. Thought process was mostly organized. Thought content: Patient endorsed suicidal and denied homicidal ideation, there were no delusions reported or noted. There was evidence of paranoid process. Attention and concentration appeared intact and memory appeared mostly intact but none formally tested. He is alert and oriented x 3. Insight and judgment are limited and impulse control is impaired. Vitals/I&O/Wt Last Vital Signs Temp 98 F 04/06/25 14:00 Pulse 86 04/06/25 14:00 Resp 16 04/06/25 14:00 BP 100/61 04/06/25 14:00 Pulse Ox 99 04/06/25 14:00 O2 Del Method Room Air 04/06/25 14:00 Weight last 48 hrs Weight 72.575 kg Data NPU 04/05/25 18:03 04/05/25 18:03 A&P Assessment and plan (1) Acute psychosis: (2) Depression: (3) Cannabis abuse: (4) Drug-induced psychotic disorder with delusions: (5) Substance induced mood disorder: (6) Methamphetamine abuse: (7) Suicidal ideation: (8) Chronic schizophrenia: Plan This is a 34-year-old white male who presents inpatient 1 month since last hospitalization currently homeless, suicidal and strongly requesting xanax and substance abuse inpatient treatment with essentially the same presentation with history of addiction and reports use of methamphetamine despite negative urine drug screen. He endorses depressed mood and appears paranoid. 1. Restart klonopin at reduced dose of 1mg bid. 2. Continue every 15 minute checks for safety. 3. Encourage individual, group and milieu therapy. 4. Encourage sober living treatment at the highest level of care to which he is willing to commit. 5. Gather collateral information. Patient may be candidate for inpatient psychiatric hospitalization. PDMP PDMP Reviewed: Not Reviewed Involuntary Hold Information 96 Hour Hold: 96 Hour Involuntary Admission: No Attestations NPU Medical Necessity Statement*: Inpatient hospitalization is medically necessary and the clinically appropriate intervention at this time. We will monitor medications and make changes as indicated. He will be in the hospital for over 2 midnights. The patient's likely length of stay is 3-5 days. Coding Level of Care Code Acute Code for [facility] Diagnoses Acute psychosis F23 Depression F32.A Cannabis abuse F12.10 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
[2025-04-06 20:05] VITALS: BP 105/71; PULSE 89; RESP 18; O2SAT 94
[2025-04-07 06:00] VITALS: RESP 16
[2025-04-07] MEDS: nicotine 4 mg lozenge MUCOUS MEM ×3 (10:42→18:08)
[2025-04-07 14:00] VITALS: BP 111/73; PULSE 86; RESP 16; TEMP 36.7; O2SAT 97
--- NOTE | 2025-04-07 17:20 | W.PM.NPUPNS ---
Subjective NPU Subjective: 34-year-old male admitted with suicidal ideation with a history of polysubstance abuse. He continues to request inpatient substance abuse treatment. He continues to endorse suicidal ideation. He had been quiet and cooperative on the milieu. He appeared engaged in groups. He had continued to insist that he would not take any medication other than Xanax and had been refusing Klonopin. He had no complaints of benzodiazepine withdrawal at this time. He had reported that he had been tired of being homeless and reported that his depression had led him to feel that he may do something desperate if he were to leave the hospital. Mental Status Exam MSE Comments: This is a well-nourished, well-developed white male in hospital scrubs with poor grooming and intense eye contact. No abnormal movements except for mild psychomotor agitation. He was cooperative with exam in no acute distress. Speech was normal rate and volume. Mood described depressed. His affect was restricted in range and mood congruent. Thought process was linear and organized. Thought content: Patient endorsed suicidal ideation and denied homicidal ideation, there were no delusions reported or noted. There was evidence of paranoid process. Attention and concentration appeared intact and memory appeared mostly intact but none formally tested. He is alert and oriented x 3. Insight and judgment are limited and impulse control is impaired. Vitals/I&O/Wt Last Vital Signs Temp 98.1 F 04/07/25 14:00 Pulse 86 04/07/25 14:00 Resp 16 04/07/25 14:00 BP 111/73 04/07/25 14:00 Pulse Ox 97 04/07/25 14:00 O2 Del Method Room Air 04/06/25 14:00 Data NPU 04/05/25 18:03 04/05/25 18:03 A&P Assessment and plan (1) Acute psychosis: (2) Depression: (3) Cannabis abuse: (4) Drug-induced psychotic disorder with delusions: (5) Substance induced mood disorder: (6) Methamphetamine abuse: (7) Suicidal ideation: (8) Chronic schizophrenia: Plan This is a 34-year-old white male who presents inpatient 1 month since last hospitalization currently homeless, suicidal and strongly requesting xanax and substance abuse inpatient treatment with essentially the same presentation with history of addiction and reports use of methamphetamine despite negative urine drug screen. He endorses depressed mood and appears paranoid. 1. Continue klonopin 1mg bid and monitor for benzodiazepine withdrawal. . 2. Continue every 15 minute checks for safety. 3. Encourage individual, group and milieu therapy. 4. Encourage sober living treatment at the highest level of care to which he is willing to commit. 5. Gather collateral information. Patient may be candidate for inpatient substance abuse treatment. Referrals to be made. PDMP PDMP Reviewed: Not Reviewed Involuntary Hold Information 96 Hour Hold: 96 Hour Involuntary Admission: No Attestations NPU Medical Necessity Statement*: Inpatient hospitalization is medically necessary and the clinically appropriate intervention at this time. We will monitor medications and make changes as indicated. He will be in the hospital for over 2 midnights. The patient's likely length of stay is 7-10 days. Coding Level of Care Code Acute Code for [facility] Fwd Diagnoses Acute psychosis F23 Depression F32.A Cannabis abuse F12.10 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
[2025-04-07 19:39] VITALS: BP 125/79; PULSE 76; RESP 18; O2SAT 96
[2025-04-08 06:00] VITALS: BP 125/60; PULSE 65; RESP 16
[2025-04-08] MEDS: nicotine 4 mg lozenge MUCOUS MEM ×5 (10:19→21:25)
[2025-04-08 14:00] VITALS: BP 103/61; PULSE 89; RESP 18; TEMP 37.1; O2SAT 98
--- NOTE | 2025-04-08 16:16 | P.NPUPN_ITS ---
Subjective NPU 2 Subjective: 34-year-old male admitted with suicidal ideation with a history of polysubstance abuse. The patient reported suicidal ideation and stated that if he were to leave here he may harm himself. He continued to report desire to receive inpatient substance abuse treatment. He had stated today that he felt that he would be having an interview without [facility] in the morning and may be a candidate to be placed there immediately if a bed was available. He continues to request inpatient substance abuse treatment. He was refusingthe Klonopin at this time but did report having problems with nausea yesterday. Mental Status Exam 2 MSE Comments: This is a well-nourished, well-developed white male in hospital scrubs with poor grooming and intense eye contact. No abnormal movements except for mild retardation today. He was cooperative with exam in no acute distress. Speech was normal rate and volume. Mood described as okay. His affect was restricted in range and mood incongruent. Thought process was linear and organized. Thought content: Patient endorsed suicidal ideation and denied homicidal ideation, there were no delusions reported or noted. There was evidence of paranoid process. Attention and concentration appeared intact and memory appeared mostly intact but none formally tested. He is alert and oriented x 3. Insight and judgment are limited and impulse control is impaired. Vitals/I&O/Wt Last Vital Signs Temp 98.1 F 04/07/25 14:00 Pulse 65 04/08/25 06:00 Resp 16 04/08/25 06:00 BP 125/60 04/08/25 06:00 Pulse Ox 96 04/07/25 19:39 O2 Del Method Room Air 04/06/25 14:00 Data NPU 04/05/25 18:03 04/05/25 18:03 A&P Assessment and plan (1) Acute psychosis: (2) Depression: (3) Cannabis abuse: (4) Drug-induced psychotic disorder with delusions: (5) Substance induced mood disorder: (6) Methamphetamine abuse: (7) Suicidal ideation: (8) Chronic schizophrenia: Plan This is a 34-year-old white male who presents inpatient 1 month since last hospitalization currently homeless, suicidal and strongly requesting xanax and substance abuse inpatient treatment with essentially the same presentation with history of addiction and reports use of methamphetamine despite negative urine drug screen. He endorses depressed mood and appears paranoid. 1. Reduce klonopin to .5mg bid and monitor for benzodiazepine withdrawal as patient refusing this medication at this time. 2. Continue every 15 minute checks for safety. 3. Encourage individual, group and milieu therapy. 4. Encourage sober living treatment at the highest level of care to which he is willing to commit. 5. Gather collateral information. Patient may be candidate for inpatient substance abuse treatment. Referrals to be made. Interview for inpatient treatment at [facility] scheduled for ashley. PDMP PDMP Reviewed: Not Reviewed Involuntary Hold Information 2 Hold Status: Date/Time Hold Expires: voluntary 96 Hour Hold: 96 Hour Involuntary Admission: No Attestations NPU 2 Medical Necessity Statement*: Inpatient hospitalization is medically necessary and the clinically appropriate intervention at this time. We will monitor medications and make changes as indicated. The patient's likely length of stay is 4-6 days. Coding Level of Care Code Acute Code for [facility] Fwd Diagnoses Acute psychosis F23 Depression F32.A Cannabis abuse F12.10 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
[2025-04-08 20:29] VITALS: BP 114/72; PULSE 87; RESP 19; TEMP 37.1; O2SAT 97
[2025-04-09 06:00] VITALS: BP 103/64; PULSE 74; RESP 18; TEMP 36.4; O2SAT 96
[2025-04-09] MEDS: nicotine 4 mg lozenge MUCOUS MEM ×6 (07:54→21:48)
--- NOTE | 2025-04-09 12:20 | PC.NURSE ---
Patient was at the [facility] nurses' station window and appeared anxious. He was talking with a tight voice, rubbing his forehead frequently, and gritting his teeth. I asked how I could help and he stated that he needed his Klonopin. Polly Tong RN came out of the med room and stated that patient's Klonopin is ordered as a scheduled med, not PRN. Upon review, it is scheduled as BID and patient had refused the dose at 0800. He continues to seem frustrated and states on the streets I take it however I want to, it's as needed. I explained that even as needed medications has restrictions and that the physician had ordered Klonopin twice daily scheduled. He interrupted and stated well he can't do that, my doctor ordered it that way. I attempted to explain that medications are often changed upon entering the hospital, but I would as Dr. Patel when he returns. Patient again repeated that on the streets I take it when I want to. I apologized and assured him we would get clarification from Dr. Patel. About that time, Dr. Patel presented to the nurses' station from the north side of the unit. I reviewed the above information with him and he states that patient may have a 1 time dose of Klonopin as he is likely leaving today and is probably anxious regarding that decision. Polly Tong RN placed the 1-time dose order for Klonopin outside of the scheduled time. I inquired to patient where he typically gets his medications filled, which he replied [facility] in [place]. After getting patient taken care of, I called [facility] and inquired about how medications were ordered previously, to which they stated they had no Rx for this patient filled there.
--- NOTE | 2025-04-09 12:38 | PC.NURSE ---
Pt came up wanting his klonopin that he refused this am. Dr. Patel okayed a one time order for Klonopin 1 mg and he could still have his 1800 Klonopin if he wanted. Pt has a plan to d/c today.
[2025-04-09] MEDS: CLONazepam 1 mg Tablet PO ×3 (12:55→21:16)
[2025-04-09 14:00] VITALS: BP 105/72; PULSE 9; RESP 18; TEMP 36.6; O2SAT 97
--- NOTE | 2025-04-09 16:11 | P.NPUPN_ITS ---
Subjective NPU 2 Subjective: 34-year-old male admitted with suicidal ideation with a history of polysubstance abuse. Patient had reported some anxiety about leaving here stating that he would be concerned that he would harm himself. He continued to make efforts to try to find an inpatient substance abuse facility as he had placed calls to [facility] in efforts to find an opening there for substance abuse treatment. The patient had endorsed some anxiety and worry. He continued to refuse any medications to target depression. He was able to attend groups. He had reported that he continued to remain homeless. He was agreeable to considering staying at a skilled nursing if one became available today. Mental Status Exam 2 MSE Comments: This is a well-nourished, well-developed white male in hospital scrubs with poor grooming and intense eye contact. No abnormal movements except for mild retardation today. He was cooperative with exam in no acute distress. Speech was normal rate and volume. Mood described as stressed. His affect was restricted in range and mood incongruent. Thought process was linear and organized. Thought content: Patient endorsed suicidal ideation and denied homicidal ideation, there were no delusions reported or noted. There was less paranoia noted. Attention and concentration appeared intact and memory appeared mostly intact but none formally tested. He is alert and oriented x 3. Insight and judgment are limited and impulse control is impaired. Vitals/I&O/Wt Last Vital Signs Temp 97.6 F 04/09/25 06:00 Pulse 74 04/09/25 06:00 Resp 18 04/09/25 06:00 BP 103/64 04/09/25 06:00 Pulse Ox 96 04/09/25 06:00 O2 Del Method Room Air 04/09/25 06:00 Data NPU 04/05/25 18:03 04/05/25 18:03 A&P Assessment and plan (1) Acute psychosis: (2) Depression: (3) Cannabis abuse: (4) Drug-induced psychotic disorder with delusions: (5) Substance induced mood disorder: (6) Methamphetamine abuse: (7) Suicidal ideation: (8) Chronic schizophrenia: Plan This is a 34-year-old white male who presents inpatient 1 month since last hospitalization currently homeless, suicidal and strongly requesting xanax and substance abuse inpatient treatment with essentially the same presentation with history of addiction and reports use of methamphetamine despite negative urine drug screen. He endorses depressed mood and appears paranoid. 1. Reduce klonopin to .5mg bid and monitor for benzodiazepine withdrawal as patient refusing this medication at this time. 2. Continue every 15 minute checks for safety. 3. Encourage individual, group and milieu therapy. 4. Encourage sober living treatment at the highest level of care to which he is willing to commit. 5. Gather collateral information. Patient may be candidate for inpatient substance abuse treatment. Referrals to be made. Interview for inpatient treatment at [facility] was scheduled today but [facility] screener appeared unavailable throughout the day despite numerous attempts to contact the staff including one from the radio script writer of this note. PDMP PDMP Reviewed: Not Reviewed Involuntary Hold Information 2 Hold Status: Date/Time Hold Expires: voluntary 96 Hour Hold: 96 Hour Involuntary Admission: No Attestations NPU 2 Medical Necessity Statement*: Inpatient hospitalization is medically necessary and the clinically appropriate intervention at this time. We will monitor medications and make changes as indicated. The patient's likely length of stay is 4-6 days. Coding Level of Care Code Acute Code for [facility] Fwd Diagnoses Acute psychosis F23 Depression F32.A Cannabis abuse F12.10 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
[2025-04-09 20:30] VITALS: BP 106/63; PULSE 100; RESP 18; TEMP 37.2; O2SAT 96
[2025-04-10 06:00] VITALS: BP 93/60; PULSE 69; RESP 16; TEMP 36.5; O2SAT 98
[2025-04-10] MEDS: nicotine 4 mg lozenge MUCOUS MEM ×4 (07:19→17:59)
[2025-04-10] MEDS: CLONazepam 1 mg Tablet PO (09:02)
[2025-04-10 14:00] VITALS: BP 121/69; PULSE 110; RESP 18; TEMP 36.6; O2SAT 99
--- NOTE | 2025-04-10 14:53 | P.NPUPN_ITS ---
Subjective NPU 2 Subjective: 34-year-old male admitted with suicidal ideation with a history of polysubstance abuse. He had requested to switch off of Klonopin to Xanax for treating panic attacks. He had continued to report having anxiety. Patient had reported some anxiety about leaving here stating that he would be concerned that he would harm himself. He reported that he wished to continue to receive treatment for his methamphetamine use and reported some cravings for methamphetamine at this time. The patient denied any feelings of hopelessness. He continued to refuse any medications for depression. He had reported adequate sleep. He had continued to isolate himself in his room throughout much of the day. Mental Status Exam 2 MSE Comments: This is a well-nourished, well-developed white male in hospital scrubs with poor grooming and intense eye contact. No abnormal movements except for mild retardation today. He was cooperative with exam in no acute distress. Speech was normal rate and volume. Mood described as anxious. His affect was restricted in range and mood congruent. Thought process was linear and organized. Thought content: Patient endorsed suicidal ideation and denied homicidal ideation, there were no delusions reported or noted. There was less paranoia noted. Attention and concentration appeared intact and memory appeared mostly intact but none formally tested. He is alert and oriented x 3. Insight and judgment are limited and impulse control is impaired. Vitals/I&O/Wt Last Vital Signs Temp 97.7 F 04/10/25 06:00 Pulse 69 04/10/25 06:00 Resp 16 04/10/25 06:00 BP 93/60 04/10/25 06:00 Pulse Ox 98 04/10/25 06:00 O2 Del Method Room Air 04/10/25 06:00 Data NPU 04/05/25 18:03 04/05/25 18:03 A&P Assessment and plan (1) Acute psychosis: (2) Depression: (3) Cannabis abuse: (4) Drug-induced psychotic disorder with delusions: (5) Substance induced mood disorder: (6) Methamphetamine abuse: (7) Suicidal ideation: (8) Chronic schizophrenia: Plan This is a 34-year-old white male who presents inpatient 1 month since last hospitalization currently homeless, suicidal and strongly requesting xanax and substance abuse inpatient treatment with essentially the same presentation with history of addiction and reports use of methamphetamine despite negative urine drug screen. He endorses depressed mood and appears paranoid. 1. Switch to xanax 1mg bid and d/c klonopin 2. Continue every 15 minute checks for safety. 3. Encourage individual, group and milieu therapy. 4. Encourage sober living treatment at the highest level of care to which he is willing to commit. 5. Gather collateral information. Patient may be candidate for inpatient substance abuse treatment. Referrals to be made. Interview for inpatient treatment at [facility] was scheduled today but [facility] screener appeared unavailable throughout the day despite numerous attempts to contact the staff including one from the film writer of this note-will make attempt to find inpatient substance abuse treatment center for this patient. PDMP PDMP Reviewed: Not Reviewed Involuntary Hold Information 2 Hold Status: Date/Time Hold Expires: voluntary 96 Hour Hold: 96 Hour Involuntary Admission: No Attestations NPU 2 Medical Necessity Statement*: Inpatient hospitalization is medically necessary and the clinically appropriate intervention at this time. We will monitor medications and make changes as indicated. The patient's likely length of stay is 4-6 days. Coding Level of Care Code Acute Code for [facility] Fwd Diagnoses Acute psychosis F23 Depression F32.A Cannabis abuse F12.10 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
[2025-04-10] MEDS: ALPRAZolam 0.5 mg Tablet 1 MG PO ×2 (15:27→23:51)
--- NOTE | 2025-04-10 15:34 | PC.NURSE ---
This nurse was giving pt his new scheduled Xanax 1mg that Dr. Patel has prescribed. I handed the pt his medication and leaned over to trash the packaging when I caught him out of the corner of my eye dump the two pills into his hand and try to hide them. I instructed the pt to put the meds in his mouth and swallow them in front of me. He did as instructed and I had him to open his mouth and lift his tongue to be sure they had been swallowed. I have informed Dr. Patel of this behavior and will pass on to the rest of the staff.
[2025-04-10 19:40] VITALS: BP 99/58; PULSE 89; RESP 16; TEMP 36.7; O2SAT 98
[2025-04-11 06:00] VITALS: RESP 18; BMI 25.0
--- NOTE | 2025-04-11 06:09 | PC.NURSE ---
Patient refused nurse notified.
--- NOTE | 2025-04-11 06:15 | PC.NURSE ---
Patient slept the majority of the shift. He woke up anxious requesting Xanax for anxiety. He rated his anxiety 10/10. Physician notified with orders received. Patient denies needs at present.
[2025-04-11] MEDS: nicotine 4 mg lozenge MUCOUS MEM ×4 (08:09→23:50)
[2025-04-11] MEDS: ALPRAZolam 0.5 mg Tablet 1 MG PO ×2 (09:04→17:56)
--- NOTE | 2025-04-11 10:47 | P.NPUPN_ITS ---
Subjective NPU 2 Subjective: 34-year-old male admitted with suicidal ideation with a history of polysubstance abuse. The patient was switched to Xanax yesterday. He had reported that he felt better on the Xanax as he stated that his panic attacks were better controlled. He had reported having a panic attack yesterday with shortness of breath and difficulty swallowing and breathing. He reported that the panic attack came out of the blue and there was no trigger. He had continued to refuse any SSRI or SNRI for this treatment. He was informed of the general consensus that the use of Xanax long-term was not recommended for treatment of panic disorder. He had reported no history of cognitive behavioral therapy. He had continued to express interest in considering inpatient substance abuse treatment. Mental Status Exam 2 MSE Comments: This is a well-nourished, well-developed white male in hospital scrubs with poor grooming and intense eye contact. No abnormal movements except for mild retardation today. He was cooperative with exam in no acute distress. Speech was normal rate and volume. Mood described as anxious. His affect was restricted in range and mood congruent. Thought process was linear and organized. Thought content: Patient denied suicidal ideation and denied homicidal ideation, there were no delusions reported or noted. There was continued baseline distrust of others. Attention and concentration appeared intact and memory appeared mostly intact but none formally tested. He is alert and oriented x 3. Insight and judgment are limited and impulse control is impaired. Vitals/I&O/Wt Last Vital Signs Temp 98.1 F 04/10/25 19:40 Pulse 89 04/10/25 19:40 Resp 18 04/11/25 06:00 BP 99/58 04/10/25 19:40 Pulse Ox 98 04/10/25 19:40 O2 Del Method Room Air 04/10/25 19:40 Weight last 48 hrs Weight 72.348 kg Data NPU 04/05/25 18:03 04/05/25 18:03 A&P Assessment and plan (1) Acute psychosis: (2) Depression: (3) Cannabis abuse: (4) Drug-induced psychotic disorder with delusions: (5) Substance induced mood disorder: (6) Methamphetamine abuse: (7) Suicidal ideation: (8) Chronic schizophrenia: Plan This is a 34-year-old white male who presents inpatient 1 month since last hospitalization currently homeless, suicidal and strongly requesting xanax and substance abuse inpatient treatment with essentially the same presentation with history of addiction and reports use of methamphetamine despite negative urine drug screen. He endorses depressed mood and appears paranoid. 1. Continue xanax 1mg bid. 2. Continue every 15 minute checks for safety. 3. Encourage individual, group and milieu therapy. 4. Encourage sober living treatment at the highest level of care to which he is willing to commit. 5. Gather collateral information. Patient may be candidate for inpatient substance abuse treatment. Referrals to be made. Interview for inpatient treatment at [facility] was scheduled on 04/09/25 but [facility] screener appeared unavailable throughout the day despite numerous attempts to contact the staff including one from the video game script writer of this note-will make attempt to find inpatient substance abuse treatment center for this patient. PDMP PDMP Reviewed: Not Reviewed Involuntary Hold Information 2 Hold Status: Date/Time Hold Expires: voluntary 96 Hour Hold: 96 Hour Involuntary Admission: No Attestations NPU 2 Medical Necessity Statement*: Inpatient hospitalization is medically necessary and the clinically appropriate intervention at this time. We will monitor medications and make changes as indicated. The patient's likely length of stay is 4-6 days. Coding Level of Care Code Acute Code for g Fwd Diagnoses Acute psychosis F23 Depression F32.A Cannabis abuse F12.10 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
[2025-04-11 14:00] VITALS: BP 107/57; PULSE 99; RESP 18; TEMP 37.8; O2SAT 98
[2025-04-11 19:36] VITALS: BP 127/76; PULSE 110; RESP 18; TEMP 36.6; O2SAT 97
[2025-04-12 06:00] VITALS: BP 109/71; PULSE 84; RESP 18; O2SAT 98
[2025-04-12] MEDS: ALPRAZolam 0.5 mg Tablet 1 MG PO ×2 (08:08→17:50)
[2025-04-12] MEDS: nicotine 4 mg lozenge MUCOUS MEM ×6 (08:17→23:12)
--- NOTE | 2025-04-12 09:01 | PC.NURSE ---
Pt states that he had the best sleep he's had in years last night. He rates his anxiety and depression a 4/10. No reports of SI/HI or hallucinations. He rates his Lt shoulder pain a 4/10 this am and declined any tylenol or IBU.
[2025-04-12 14:00] VITALS: BP 95/54; PULSE 82; RESP 18; TEMP 36.6; O2SAT 97
--- NOTE | 2025-04-12 17:16 | P.NPUPN_ITS ---
Subjective NPU 2 Subjective: 34-year-old male admitted with suicidal ideation with a history of polysubstance abuse. Patient reported some fleeting suicidality. He reported no spontaneous panic attacks but stated that he continued to have significant anxiety. He had refused SSRIs at this time. He reported struggles with sleep continuity disruption. He had expressed some frustration with not being able to get into an inpatient substance abuse facility. He had reported increased isolation. He had reported no cravings for methamphetamine at this time. Mental Status Exam 2 MSE Comments: This is a well-nourished, well-developed white male in hospital scrubs with poor grooming and intense eye contact. No abnormal movements except for mild retardation today. He was cooperative with exam in no acute distress. Speech was normal rate and volume. Mood described as anxious. His affect was restricted in range and mood congruent. Thought process was linear and organized. Thought content: Patient denied suicidal ideation and denied homicidal ideation, there were no delusions reported or noted. There was continued baseline distrust of others. Attention and concentration appeared intact and memory appeared mostly intact but none formally tested. He is alert and oriented x 3. Insight and judgment are limited and impulse control is impaired. Vitals/I&O/Wt Last Vital Signs Temp 97.9 F 04/12/25 14:00 Pulse 82 04/12/25 14:00 Resp 18 04/12/25 14:00 BP 95/54 04/12/25 14:00 Pulse Ox 97 04/12/25 14:00 O2 Del Method Room Air 04/12/25 14:00 Weight last 48 hrs Weight 72.348 kg Data NPU 04/05/25 18:03 04/05/25 18:03 A&P Assessment and plan (1) Acute psychosis: (2) Depression: (3) Cannabis abuse: (4) Drug-induced psychotic disorder with delusions: (5) Substance induced mood disorder: (6) Methamphetamine abuse: (7) Suicidal ideation: (8) Chronic schizophrenia: Plan This is a 34-year-old white male who presents inpatient 1 month since last hospitalization currently homeless, suicidal and strongly requesting xanax and substance abuse inpatient treatment with essentially the same presentation with history of addiction and reports use of methamphetamine despite negative urine drug screen. He endorses depressed mood and appears paranoid. 1. Continue xanax 1mg bid. 2. Continue every 15 minute checks for safety. 3. Encourage individual, group and milieu therapy. 4. Encourage sober living treatment at the highest level of care to which he is willing to commit. 5. Gather collateral information. Patient may be candidate for inpatient substance abuse treatment. Referrals to be made. Interview for inpatient treatment at [facility] scheduled tommorow per community health coordinator through [facility]. PDMP PDMP Reviewed: Not Reviewed Involuntary Hold Information 2 Hold Status: Date/Time Hold Expires: voluntary 96 Hour Hold: 96 Hour Involuntary Admission: No Attestations NPU 2 Medical Necessity Statement*: Inpatient hospitalization is medically necessary and the clinically appropriate intervention at this time. We will monitor medications and make changes as indicated. The patient's likely length of stay is 4-6 days. Coding Level of Care Code Acute Code for [facility] Fwd Diagnoses Acute psychosis F23 Depression F32.A Cannabis abuse F12.10 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
[2025-04-12 20:10] VITALS: BP 109/67; PULSE 108; RESP 16; TEMP 37.1; O2SAT 97
[2025-04-13 06:00] VITALS: BP 108/72; PULSE 56; RESP 16; O2SAT 99
[2025-04-13] MEDS: nicotine 4 mg lozenge MUCOUS MEM ×6 (07:59→21:35)
[2025-04-13] MEDS: ALPRAZolam 0.5 mg Tablet 1 MG PO (07:59)
--- NOTE | 2025-04-13 11:37 | XRR_ITS ---
PROCEDURE INFORMATION: Exam: XR Left Shoulder Exam date and time: 04/13/2025 12:20 PM Age: 34 years old Clinical indication: Pain; Shoulder; Bilateral; Additional info: Shoulder pain TECHNIQUE: Imaging protocol: Radiologic exam of the left shoulder. Views: 2 or more views. COMPARISON: CR XR shoulder LT min 2V* [id number] 04/15/2024 2:39 PM FINDINGS: Bones/joints: No acute fracture or dislocation. Glenohumeral joint is intact. AC joint is unremarkable. Soft tissues: Unremarkable. XR/XR shoulder LT min 2V* [id number] IMPRESSION: No acute findings.
[2025-04-13 14:00] VITALS: BP 123/71; PULSE 94; RESP 17; TEMP 37; O2SAT 97
--- NOTE | 2025-04-13 14:12 | W.PM.NPUPNS ---
Subjective NPU Subjective: 34-year-old male admitted with suicidal ideation with a history of polysubstance abuse. The patient had reported continued anxiety. He was informed that he would not be allowed to be placed on benzodiazepines on a routine basis if he were to go to a substance abuse facility. He had expressed interest in going to an inpatient substance abuse treatment center fearing that he would kill himself through his substance use if discharged. He had a significant history of avoiding inpatient substance abuse treatment but stated that he was convinced that he needed to do this to avoid his . He reported no side effects from the benzodiazepines given earlier. He had reported some cravings for methamphetamine. He had complained of having a significant pain in his left shoulder. Previous records had shown no signs of a fracture approximately 1-1/2 years ago. Mental Status Exam MSE Comments: This is a well-nourished, well-developed white male in hospital scrubs with poor grooming and intense eye contact. No abnormal movements except for mild retardation today. He was cooperative with exam in no acute distress. Speech was normal rate and volume. Mood described as stressed. His affect was anxious and mood congruent. Thought process was linear, logical and organized. Thought content: Patient denied suicidal ideation and denied homicidal ideation, there were no delusions reported or noted. There was continued baseline distrust of others. Attention and concentration appeared intact and memory appeared mostly intact but none formally tested. He is alert and oriented x 3. Insight and judgment are limited and impulse control is impaired. Vitals/I&O/Wt Last Vital Signs Temp 98.7 F 04/12/25 20:10 Pulse 56 L 04/13/25 06:00 Resp 16 04/13/25 06:00 BP 108/72 04/13/25 06:00 Pulse Ox 99 04/13/25 06:00 O2 Del Method Room Air 04/13/25 06:00 Data NPU 04/05/25 18:03 04/05/25 18:03 A&P Assessment and plan (1) Acute psychosis: (2) Depression: (3) Cannabis abuse: (4) Drug-induced psychotic disorder with delusions: (5) Substance induced mood disorder: (6) Methamphetamine abuse: (7) Suicidal ideation: (8) Chronic schizophrenia: Plan This is a 34-year-old white male who presents inpatient 1 month since last hospitalization currently homeless, suicidal and strongly requesting xanax and substance abuse inpatient treatment with essentially the same presentation with history of addiction and reports use of methamphetamine despite negative urine drug screen. He endorses depressed mood and appears paranoid. 1. Discontinue benzodiazepines. left shoulder x-ray ordered. 2. Continue every 15 minute checks for safety. 3. Encourage individual, group and milieu therapy. 4. Encourage sober living treatment at the highest level of care to which he is willing to commit. 5. Gather collateral information. Patient may be candidate for inpatient substance abuse treatment. Referrals to be made. Interview for inpatient treatment at [facility] scheduled tommorow per accounts payable coordinator through [facility]. PDMP PDMP Reviewed: Not Reviewed Involuntary Hold Information Hold Status: Date/Time Hold Expires: voluntary 96 Hour Hold: 96 Hour Involuntary Admission: No Attestations NPU Medical Necessity Statement*: Inpatient hospitalization is medically necessary and the clinically appropriate intervention at this time. We will monitor medications and make changes as indicated. The patient's likely length of stay is 2-3 days. Coding Level of Care Code Acute Code for [facility] Fwd Diagnoses Acute psychosis F23 Depression F32.A Cannabis abuse F12.10 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
[2025-04-13 20:19] VITALS: BP 109/66; PULSE 98; RESP 18; TEMP 37.2; O2SAT 97
[2025-04-14 06:00] VITALS: BP 109/64; PULSE 76; RESP 17; TEMP 36.7; O2SAT 99
[2025-04-14] MEDS: nicotine 4 mg lozenge MUCOUS MEM ×6 (07:47→20:46)
[2025-04-14 14:00] VITALS: BP 116/73; PULSE 102; TEMP 36.7; O2SAT 96
--- NOTE | 2025-04-14 15:37 | W.PM.NPUPNS ---
Subjective NPU Subjective: 34-year-old male admitted with suicidal ideation with a history of polysubstance abuse. The patient repeatedly reported having benzodiazepine withdrawal symptoms although there appeared to be no evidence of this. He had endorsed some strong cravings for Xanax and Klonopin. He had continued to report having problems with anxiety but refused any medications. He had continued to express significant anxiety about going to rehabilitation despite reporting that he had a need to get out of [place] and move forward towards getting sober. Mental Status Exam MSE Comments: This is a well-nourished, well-developed white male in hospital scrubs with poor grooming and intense eye contact. No abnormal movements except for mild retardation today. He was cooperative with exam in signficant distress. Speech was normal rate and volume. Mood described as anxious. His affect was anxious and mood congruent. Thought process was linear, logical and organized. Thought content: Patient denied suicidal ideation and denied homicidal ideation, there were no delusions reported or noted. There was continued baseline distrust of others. Attention and concentration appeared intact and memory appeared mostly intact but none formally tested. He is alert and oriented x 3. Insight and judgment are limited and impulse control is impaired. Vitals/I&O/Wt Last Vital Signs Temp 98.0 F 04/14/25 14:00 Pulse 102 H 04/14/25 14:00 Resp 17 04/14/25 06:00 BP 116/73 04/14/25 14:00 Pulse Ox 96 04/14/25 14:00 O2 Del Method Room Air 04/14/25 14:00 Data NPU 04/05/25 18:03 04/05/25 18:03 A&P Assessment and plan (1) Methamphetamine abuse: (2) Acute psychosis: (3) Depression: (4) Cannabis abuse: (5) Drug-induced psychotic disorder with delusions: (6) Substance induced mood disorder: (7) Suicidal ideation: (8) Chronic schizophrenia: Plan This is a 34-year-old white male who presents inpatient 1 month since last hospitalization currently homeless, suicidal and strongly requesting xanax and substance abuse inpatient treatment with essentially the same presentation with history of addiction and reports use of methamphetamine despite negative urine drug screen. He endorses depressed mood and appears paranoid. 1. left shoulder x-ray ordered-negative for acute changes. 2. Continue every 15 minute checks for safety. 3. Encourage individual, group and milieu therapy. 4. Encourage sober living treatment at the highest level of care to which he is willing to commit. 5. Patient may be candidate for inpatient substance abuse treatment. Patient to be discharged to [facility] early am. PDMP PDMP Reviewed: Not Reviewed Involuntary Hold Information Hold Status: Date/Time Hold Expires: voluntary 96 Hour Hold: 96 Hour Involuntary Admission: No Attestations NPU Medical Necessity Statement*: Inpatient hospitalization is medically necessary and the clinically appropriate intervention at this time. We will monitor medications and make changes as indicated. The patient's likely length of stay is 2-3 days. Coding Level of Care Code Acute Code for [facility] Fwd Diagnoses Methamphetamine abuse F15.10 Acute psychosis F23 Depression F32.A Cannabis abuse F12.10 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
[2025-04-14 19:56] VITALS: BP 112/68; PULSE 88; RESP 16; TEMP 36.9; O2SAT 98
[2025-04-15 06:00] VITALS: BP 99/64; PULSE 90; RESP 18; TEMP 36.7; O2SAT 98
[2025-04-15 06:08] VITALS: BP 110/58; PULSE 90; RESP 18; TEMP 36.7; O2SAT 98
--- NOTE | 2025-04-15 12:55 | P.NPUDS_ITS ---
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 absent credible lethality, and had a chieved the maximum benefit from an inpatient hospitalization, so was discharged Hospital Course Hospital Course Patient was started on Klonopin as prescribed on an outpatient basis with patient refusing the klonopin for several days. He was negative for benzodiazepines on admission despite being prescribed klonopin on outpatient basis. During the hospitalization, the patient had routine laboratory studies which were within normal limits except for a few outliers.? Additionally, there was a general medical evaluation which was also within normal limits and revealed no new acute processes.? At the time of discharge, lethality was denied and psychosis was resolving.? Mood and anxiety were well managed.? The patient endorsed a plan to avoid all drugs of abuse and follow up with the aftercare recommendations of the treatment team.? The patient was evaluated and deemed to be absent credible lethality and had achieved the maximum benefit from an inpatient hospitalization, and so was discharged. ?The patient was transferred to inpatient substance abuse treatment facility at [facility] in [place] for continued inpatient substance abuse treatment. Involuntary Hold Information Hold Status: Date/Time Hold Expires: voluntary 96 Hour Hold: 96 Hour Involuntary Admission: No Mental Status Exam 2 MSE Comments: This is a well-nourished, well-developed white male in hospital scrubs with poor grooming and intense eye contact. No abnormal movements except for mild retardation today. He was cooperative with exam in signficant distress. Speech was normal rate and volume. Mood described as anxious. His affect was anxious and mood congruent. Thought process was linear, logical and organized. Thought content: Patient denied suicidal ideation and denied homicidal ideation, there were no delusions reported or noted. There was continued baseline distrust of others. Attention and concentration appeared intact and memory appeared mostly intact but none formally tested. He is alert and oriented x 3. Insight and judgment are limited and impulse control is impaired. Discharge Data Studies Completed and Pending: Completed Studies During Hospitalization Category Date Time Status XR shoulder LT mi n 2V* [id number] Routin e Exams 04/13/25 11:37 Completed Radiology Impressions Shoulder X-Ray 04/13/25 11:37 IMPRESSION: No acute findings. Laboratory Results WBC 13.36 10^3/uL (3. 29-11.43) H 04/05/25 18:03 RBC 4.93 10^6/uL (3.8 5-5.65) 04/05/25 18:03 Hgb 14.40 g/dL (11.27 -16.99) 04/05/25 18:03 Hct 44.1 % (37-53) 04/05/25 18:03 MCV 89.5 fl (82-101) 04/05/25 18:03 MCH 29.2 pg (27-33) 04/05/25 18:03 MCHC 32.7 g/dL (30-55) 04/05/25 18:03 RDW 13.6 % (12.1-15.1 ) 04/05/25 18:03 Plt Count 195 10^3/cmm (157 -399) 04/05/25 18:03 MPV 11.9 fL (7.4-10.4 ) H 04/05/25 18:03 Neut % (Auto) 24.5 % 04/05/25 18:03 Lymph % (Auto) 65.9 % 04/05/25 18:03 Hayes % (Auto) 8.0 % 04/05/25 18:03 Eos % (Auto) 0.4 % 04/05/25 18:03 Baso % (Auto) 0.9 % 04/05/25 18:03 Neut # (Auto) 3.27 10^3/uL (1.8 -7.7) 04/05/25 18:03 Lymph # (Auto) 8.8 10^3/uL (0.8- 4.8) H 04/05/25 18:03 Hayes # (Auto) 1.1 10^3/uL (0.2- 0.9) H 04/05/25 18:03 Eos # (Auto) 0.1 10^3/uL (0.0- 0.8) 04/05/25 18:03 Baso # (Auto) 0.1 10^3/uL (0.0- 0.1) 04/05/25 18:03 Nucleated RBC % (a uto) 0 % 04/05/25 18:03 Nucleated RBCs # 0.0 /100WBC 04/05/25 18:03 Sodium 137 mmol/L (136-1 45) 04/05/25 18:03 Potassium 4.2 mmol/L (3.5-5 .1) 04/05/25 18:03 Chloride 104 mmol/L (98-10 7) 04/05/25 18:03 Carbon Dioxide 21 mmol/L (22-29) L 04/05/25 18:03 Anion Gap 16.2 (5-19) 04/05/25 18:03 BUN 11 mg/dL (6-20) 04/05/25 18:03 Creatinine 0.7 mg/dL (0.7-1. 2) 04/05/25 18:03 GFR Calculation 129.9 mL/min (90- 130) 04/05/25 18:03 Glucose 118 mg/dL (65-115 ) H 04/05/25 18:03 Calculated Osmolal ity 284 mOsm/kg (285- 295) L 04/05/25 18:03 Calcium 8.9 mg/dL (8.5-10 .5) 04/05/25 18:03 Total Bilirubin 0.3 mg/dL (0.15-1 .2) 04/05/25 18:03 AST 25 U/L (0-40) 04/05/25 18:03 ALT 34 U/L (0-41) 04/05/25 18:03 Alkaline Phosphata se 66 U/L (40-130) 04/05/25 18:03 Total Protein 7.6 g/dL (6.6-8.7 ) 04/05/25 18:03 Albumin 4.1 g/dL (3.5-5.2 ) 04/05/25 18:03 Globulin 3.5 g/dL (1.3-4.6 ) 04/05/25 18:03 Salicylates < 0.3 mg/dL (3-10 ) L 04/05/25 18:03 Urine Opiates Scre en Negative ng/mL (N egative) 04/05/25 Unknown Acetaminophen < 5.0 ug/mL (10-3 0) L 04/05/25 18:03 Ur Barbiturates Sc reen Negative ng/mL (N egative) 04/05/25 Unknown Ur Phencyclidine S crn Negative ng/mL (N egative) 04/05/25 Unknown Ur Amphetamines Sc reen Negative ng/mL (N egative) 04/05/25 Unknown U Benzodiazepines Scrn Negative ng/mL (N egative) 04/05/25 Unknown Urine Cocaine Scre en Negative ng/mL (N egative) 04/05/25 Unknown U Marijuana (THC) Screen Positive ng/mL (N egative) H 04/05/25 Unknown Ethyl Alcohol < 10 mg/dL (0-10) 04/05/25 18:03 Vitals: Last Vital Signs Temp 98.0 F 04/14/25 14:00 Pulse 102 H 04/14/25 14:00 Resp 17 04/14/25 06:00 BP 116/73 04/14/25 14:00 Pulse Ox 96 04/14/25 14:00 O2 Del Method Room Air 04/14/25 14:00 Discharge Plan Discharge Patient Disposition: Home Condition: Stable Prescriptions: Discontinued clonazepam [Klonopin] 1 mg tablet 1 mg PO BID clonazepam [Klonopin] 1 mg tablet 1 mg PO BEDTIME PRN (Reason: Anxiety) Discharge Orders: Discharge Order (Routine); Ordered 04/14/25 Ordered By: Real Patel Referrals: [facility] [Other] - 04/15/25 9:00 am [facility] [Outside] Asha Zee MD [Physician, Family Practice] Discharge Diet: Usual diet Discharge Activity: Resume usual activity Patient Instructions: Depression (DC), Suicide Prevention (DC), Opioid Safety Discharge Attestations NPU Time Spent in Discharge Care*: less than 30 min Specific Discharge Activities: Specific discharge activities: educating patient, discussing with pillowcase sewer/social workers/dc planners and documenting/other paperwork Status at Discharge: Cognitive status at discharge: cognitively intact , Behavioral status at discharge: cooperative , Coding Level of Care Code Acute Code for [facility] Fwd Diagnoses Methamphetamine abuse F15.10 Acute psychosis F23 Depression F32.A Cannabis abuse F12.10 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
== END 2025-04-15 06:23 | disposition home or self-care (01) | DRG 885 ==
LOC: ER 18:28 → NP 18:39
PROVIDERS: Emergency Medicine; Admitting Provider Psychiatry & Neurology Psychiatry; Emergency Provider Physician Assistant; Visit Provider Psychiatry & Neurology Psychiatry
DX: F20.9 Schizophrenia, unspecified (principal); R45.851 Suicidal ideations; Z59.00 Homelessness unspecified; F32.A Depression, unspecified; F12.10 Cannabis abuse, uncomplicated; F15.10 Other stimulant abuse, uncomplicated; Z81.8 Family history of other mental and behavioral disorders; Z91.51 Personal history of suicidal behavior; F19.959 Other psychoactive substance use, unspecified with psychoactive substance-induced psychotic disorder, unspecified; F17.210 Nicotine dependence, cigarettes, uncomplicated; M25.512 Pain in left shoulder
CPT/HCPCS: 73030; 80053; 80306; 80307; 85025; 97150; 97165; 99285; J9999